=== PATIENT | female | born 1965 | race Caucasian/White ===

== ENCOUNTER 2019-05-28 23:55 | Observation (INO) | payer SELFPAY ==
--- NOTE | 2019-05-29 00:52 | EDM.PDOC ---
ED HPI GENERAL MEDICAL PROBLEM - General Time Seen by Provider: 05/29/19 00:15 Source of Information: Reports: Patient, EMS, Police History Limitations: Reports: Intoxication - History of Present Illness INITIAL COMMENTS - FREE TEXT/NARRATIVE: Pt. presents to ER with complaints of depression and anxiety. Pt. has been under increased stress recently. Her has liver failure and the patient has been the sore breadwinner. Pt. states that tongarry, instead of going to a family [employer] event, decided to drink tonight. She made mention to her son that she did not want to live anymore. EMS was summoned. Pt. denies any suicidal ideation to EMS or law enforcement, and she does not have a plan to harm herself. Pt. has a history of depression and PTSD. She is under the care of Dr. Lopez at [facility]. She is prescribed zanax and citalopram. She has a history of binge drinking but is not an alcoholic. 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 Pt. denies any history of suicidal or homicidal ideation ever in the past. Pt. states that she has also been experiencing cough and chest congestion for over a week as well. She is a smoker. She states that the cough is productive. She has not been experiencing any fever or chills. No significant shortness of breath. Onset: Today Onset Date: 05/29/19 Location: Reports: Chest, Generalized Severity: Moderate Worsens with: Reports: Breathing Associated Symptoms: Reports: Cough, cough w sputum. Denies: Diaphoresis, Fever /Chills, Nausea/Vomiting, Shortness of Breath - Related Data Allergies Allergy/AdvReac Type Severity Reaction Status Date / Time guaifenesin [From Mucinex] Allergy Intermediate Swollen Verified 05/29/19 01:45 Eyes Home Meds: Home Meds traMADol HCl [Tramadol HCl] 50 mg PO Q6H PRN #10 tablet 04/06/17 [Rx] Past Medical History - Past Health History Medical/Surgical History: Denies Medical/Surgical History Psychiatric History: Reports: Anxiety, Depression Other Psychiatric History: History of anxiety. - Past Surgical History GI Surgical History: Reports: Appendectomy Social & Family History - Caffeine Use Caffeine Use: Reports: Coffee ED ROS GENERAL - Review of Systems Review Of Systems: See Below Constitutional: Reports: No Symptoms HEENT: Reports: No Symptoms Respiratory: Reports: Pleuritic Chest Pain, Cough Cardiovascular: Reports: No Symptoms Endocrine: Reports: No Symptoms GI/Abdominal: Reports: No Symptoms : Reports: No Symptoms Musculoskeletal: Reports: No Symptoms Skin: Reports: No Symptoms Neurological: Reports: No Symptoms. Denies: Confusion, Dizziness, Headache, Numbness, Pre-Existing Deficit, Seizure, Syncope, Tingling, Tremors, Trouble Speaking, Weakness Psychiatric: Reports: Depression, Mood Lability. Denies: Homicidal Ideation, Suicidal Ideation Hematologic/Lymphatic: Reports: No Symptoms Immunologic: Reports: No Symptoms ED EXAM, GENERAL - Physical Exam Exam: See Below Exam Limited By: Intoxication General Appearance: Alert, WD/WN, No Apparent Distress Eye Exam: Bilateral Eye: EOMI, Normal Fundi, Normal Inspection, PERRL Ears: Normal External Exam, Normal Canal, Hearing Grossly Normal, Normal TMs Nose: Normal Inspection, No Blood Throat/Mouth: Normal Inspection, Normal Lips, Normal Teeth, Normal Gums, Normal Oropharynx, Normal Voice, No Airway Compromise Head: Atraumatic, Normocephalic Neck: Normal Inspection, Supple, Non-Tender, Full Range of Motion Respiratory/Chest: No Respiratory Distress, Decreased Breath Sounds, Rhonchi Cardiovascular: Normal Peripheral Pulses, Regular Rate, Rhythm, No Edema, No JVD Peripheral Pulses: 4+: Radial (R) GI/Abdominal: Normal Bowel Sounds, Soft, Non-Tender, No Organomegaly, No Distention, No Mass (Female) Exam: Deferred Rectal (Female) Exam: Deferred Back Exam: Normal Inspection, Full Range of Motion Extremities: Normal Inspection, Normal Range of Motion, Non-Tender, No Pedal Edema, Normal Capillary Refill Neurological: Alert, Oriented, CN II-XII Intact, Normal Cognition, Normal Gait, Normal Reflexes, No Motor/Sensory Deficits Psychiatric: Anxious, Depressed Mood, Tearful Skin Exam: Warm, Dry, Intact, Normal Color, No Rash Course - Vital Signs Last Recorded V/S: Last Vital Signs Temp 36.0 C 05/28/19 23:55 Pulse 76 05/28/19 23:55 Resp 16 05/28/19 23:55 BP 121/78 05/28/19 23:55 Pulse Ox 94 L 05/28/19 23:55 - Orders/Labs/Meds Orders: Active Orders 24 hr Category Date Time Status Patient Status [ADT] Routine ADT 05/29/19 01:51 Active Chest 1V Frontal [CR] Stat Exams 05/29/19 00:32 Taken Labs: Laboratory Tests 05/29/19 05/29/19 05/29/19 Range/Units 00:54 00:54 00:54 WBC 5.4 (4.0-10.0) x10^3/uL RBC 4.17 (4.00-5.50) x10^6/uL Hgb 11.0 L (12.0-16.0) g/dL Hct 34.5 (33.0-47.0) % MCV 82.7 (78.0-93.0) fL MCH 26.4 (26.0-32.0) pg MCHC 31.9 L (32.0-36.0) g/dL RDW Coeff of Grace 19.8 H (10.0-15.0) % Plt Count 183 (130-400) x10^3/uL Neut % (Auto) 52.8 (50.0-80.0) % Lymph % (Auto) 35.9 (25.0-50.0) % [place] % (Auto) 8.5 (2.0-11.0) % Eos % (Auto) 2.4 (0.0-4.0) % Baso % (Auto) 0.4 (0.2-1.2) % PT 10.3 (10.0-12.8) SEC INR 0.9 L (2.0-3.5) Sodium 148 H (136-145) mmol/L Potassium 3.0 L (3.5-5.1) mmol/L Chloride 109 H (98-107) mmol/L Carbon Dioxide 28 (21-32) mmol/L Anion Gap 14.0 (10-20) mmol/L BUN 4 L (7-18) mg/dL Creatinine 0.6 (0.55-1.02) mg/dL Est Cr Clr Drug Dosing TNP Estimated GFR (MDRD) > 60 Glucose 102 (74-106) mg/dL Calcium 7.9 L (8.5-10.1) mg/dL Corrected Calcium 9.34 (8.5-10.1) mg/dL Magnesium 2.0 (1.8-2.4) mg/dL Total Bilirubin 0.2 (0.2-1.0) mg/dL AST 166 H (15-37) U/L ALT 83 H (14-59) U/L Alkaline Phosphatase 141 H (46-116) U/L C-Reactive Protein < 0.2 (<=0.9) mg/dL Total Protein 5.5 L (6.4-8.2) g/dL Albumin 2.2 L (3.4-5.0) g/dL Globulin 3.3 Albumin/Globulin Ratio 0.67 Urine Color (YELLOW) Urine Appearance (CLEAR) Urine pH (5.0-8.0) Ur Specific [place] Urine Protein (NEGATIVE) mg/dL Urine Glucose (UA) (NEGATIVE) mg/dL Urine Ketones (NEGATIVE) mg/dL Urine Occult Blood (NEGATIVE) Urine Nitrite (NEGATIVE) Urine Bilirubin (NEGATIVE) Urine Urobilinogen (0.2) EU/dL Ur Leukocyte Esterase (NEGATIVE) Urine RBC (NOT SEEN) /HPF Urine WBC (NOT SEEN) /HPF Ur Squamous Epith Cells (NEGATIVE) /HPF Urine Bacteria (NEGATIVE) /HPF Urine Mucus (NEGATIVE) /LPF Urine Opiates Screen (NEGATIVE) Ur Buprenorphine Scrn (NEGATIVE) Ur Oxycodone Screen (NEGATIVE) Ur EDDP (Meth Metab) (NEGATIVE) Urine Methadone Screen (NEGATIVE) Ur Barbiturates Screen (NEGATIVE) Ur Tricyclics Screen (NEGATIVE) Ur Phencyclidine Scrn (NEGATIVE) Ur Amphetamine Screen (NEGATIVE) U Methamphetamines Scrn (NEGATIVE) Urine MDMA Screen (NEGATIVE) U Benzodiazepines Scrn (NEGATIVE) U Cocaine Metab Screen (NEGATIVE) U Marijuana (THC) Screen (NEGATIVE) Ethyl Alcohol 214 H (0-3) mg/dL 05/29/19 05/29/19 Range/Units 01:29 01:29 WBC (4.0-10.0) x10^3/uL RBC (4.00-5.50) x10^6/uL Hgb (12.0-16.0) g/dL Hct (33.0-47.0) % MCV (78.0-93.0) fL MCH (26.0-32.0) pg MCHC (32.0-36.0) g/dL RDW Coeff of Grace (10.0-15.0) % Plt Count (130-400) x10^3/uL Neut % (Auto) (50.0-80.0) % Lymph % (Auto) (25.0-50.0) % [place] % (Auto) (2.0-11.0) % Eos % (Auto) (0.0-4.0) % Baso % (Auto) (0.2-1.2) % PT (10.0-12.8) SEC INR (2.0-3.5) Sodium (136-145) mmol/L Potassium (3.5-5.1) mmol/L Chloride (98-107) mmol/L Carbon Dioxide (21-32) mmol/L Anion Gap (10-20) mmol/L BUN (7-18) mg/dL Creatinine (0.55-1.02) mg/dL Est Cr Clr Drug Dosing Estimated GFR (MDRD) Glucose (74-106) mg/dL Calcium (8.5-10.1) mg/dL Corrected Calcium (8.5-10.1) mg/dL Magnesium (1.8-2.4) mg/dL Total Bilirubin (0.2-1.0) mg/dL AST (15-37) U/L ALT (14-59) U/L Alkaline Phosphatase (46-116) U/L C-Reactive Protein (<=0.9) mg/dL Total Protein (6.4-8.2) g/dL Albumin (3.4-5.0) g/dL Globulin Albumin/Globulin Ratio Urine Color Yellow (YELLOW) Urine Appearance Clear (CLEAR) Urine pH 7.0 (5.0-8.0) Ur Specific [place] 1.010 Urine Protein Negative (NEGATIVE) mg/dL Urine Glucose (UA) Negative (NEGATIVE) mg/dL Urine Ketones Negative (NEGATIVE) mg/dL Urine Occult Blood Negative (NEGATIVE) Urine Nitrite Negative (NEGATIVE) Urine Bilirubin Negative (NEGATIVE) Urine Urobilinogen 0.2 (0.2) EU/dL Ur Leukocyte Esterase Negative (NEGATIVE) Urine RBC 0-5 (NOT SEEN) /HPF Urine WBC 0-5 (NOT SEEN) /HPF Ur Squamous Epith Cells Few H (NEGATIVE) /HPF Urine Bacteria Rare (NEGATIVE) /HPF Urine Mucus Rare H (NEGATIVE) /LPF Urine Opiates Screen Negative (NEGATIVE) Ur Buprenorphine Scrn Negative (NEGATIVE) Ur Oxycodone Screen Negative (NEGATIVE) Ur EDDP (Meth Metab) Negative (NEGATIVE) Urine Methadone Screen Negative (NEGATIVE) Ur Barbiturates Screen Negative (NEGATIVE) Ur Tricyclics Screen Negative (NEGATIVE) Ur Phencyclidine Scrn Negative (NEGATIVE) Ur Amphetamine Screen Negative (NEGATIVE) U Methamphetamines Scrn Negative (NEGATIVE) Urine MDMA Screen Negative (NEGATIVE) U Benzodiazepines Scrn Positive H (NEGATIVE) U Cocaine Metab Screen Negative (NEGATIVE) U Marijuana (THC) Screen Negative (NEGATIVE) Ethyl Alcohol (0-3) mg/dL Meds: Medications Discontinued Medications Generic Name Dose Route Start Last Admin Trade Name Freq PRN Reason Stop Dose Admin Doxycycline Monohydrate 2 packet 05/29/19 01:30 Take Home: Doxycycline 100 Mg, 4 Tab Pack PO 05/29/19 01:31 ONETIME ONE Ketorolac Tromethamine 30 mg 05/29/19 01:30 Toradol IM 05/29/19 01:31 ONETIME ONE - Radiology Interpretation Free Text/Narrative:: chest x-ray obtained and was negative for acute pathology Departure - Departure Time of Disposition: 01:56 Disposition: Refer to Observation Clinical Impression: Alcohol abuse, Anxiety, COPD exacerbation - Discharge Information Instructions: Chronic Obstructive Pulmonary Disease Exacerbation, Major Depressive Disorder, Adult, [id number], Alcohol Intoxication, [id number] Forms: ED Department Discharge Additional Instructions: Home to rest. Continue with your current medications. Doxycycline 100mg twice daily for 10 days Prednisone 20mg 2 tabs every day for 7 days Return to ER if you develop suicidal thoughts or plans. Sepsis Event Note - Focused Exam Vital Signs: Vital Signs Temp Pulse Resp BP Pulse Ox 05/28/19 23:55 36.0 C 76 16 121/78 94 L Date Exam was Performed: 05/29/19 Time Exam was Performed: 01:54 - Problem List Review Problem List Initiated/Reviewed/Updated: Yes - My Orders Last 24 Hours: My Active Orders 05/29/19 00:32 Chest 1V Frontal [CR] Stat 05/29/19 01:51 Patient Status [ADT] Routine - Assessment/Plan Admission H&P: Please use this note as an admission H&P Last 24 Hours: My Active Orders 05/29/19 00:32 Chest 1V Frontal [CR] Stat 05/29/19 01:51 Patient Status [ADT] Routine Plan: Initially planned to discharge the patient, but patient later developed increased discomfort in her R lateral chest. Chest x-ray is negative, but her lung sounds are diminished. Likely cause of the chest discomfort is pleurisy. She is intoxicated, and she doesn't have anyone sober to pick her up. Will start NS at 125ml/hr. Solu Medrol 125mg IV. Will add d dimer in the AM, pt. has had a significant increase in discomfort since she initially presented to ER. She is a code 1.
[2019-05-29 01:19] LABS: CHLORIDE,CL 109 mmol/L (98-107); SODIUM,NA 148 mmol/L (136-145)
[2019-05-29] MEDS ORDERED: Take Home: Doxycycline 100 MG Tab, 4 Tab Pack PO ONE (01:30)
[2019-05-29] MEDS ORDERED: Ketorolac 30 MG/ML SDV IM ONE (01:30)
[2019-05-29 01:42] LABS: BARBITURATE SCREEN,URINE NEGATIVE (NEGATIVE); EDDP,URINE SCREEN NEGATIVE (NEGATIVE)
[2019-05-29 01:43] LABS: BENZODIAZEPINES SCREEN,URINE POSITIVE (NEGATIVE); METHAMPHETAMINE SCREEN, URINE NEGATIVE (NEGATIVE); TCA SCREEN,URINE NEGATIVE (NEGATIVE); THC SCREEN,URINE 50 NG/ML NEGATIVE (NEGATIVE)
[2019-05-29] MEDS ORDERED: Sodium Chloride 0.9% 1,000 ML IV ONE (02:23)
[2019-05-29] MEDS ORDERED: methylPREDNISolone Sodium Succinate 125 MG/2 ML SDV IVPUSH ONE (02:24)
[2019-05-29] MEDS ORDERED: Acetaminophen/HYDROcodone 325-5 MG Tab PO PRN (02:26)
[2019-05-29] MEDS: Doxycycline 100 MG Cap PO SCH ×2 (02:59→08:32)
[2019-05-29] MEDS ORDERED: Citalopram 20 MG Tab PO SCH (08:00)
--- NOTE | 2019-05-29 08:33 | CR ---
[id number] RAD/RAD Chest PA or AP 1V EXAM: RAD Chest PA or AP 1V INDICATION: COUGH,CHEST CONGESTION. COMPARISON: None. DISCUSSION: Cardiomediastinal silhouette is normal in size and contour, given portable technique of the examination. Pulmonary vascularity is also normal in caliber. No infiltrate, effusion, pneumothorax, or edema. IMPRESSION: Negative examination of the chest. Jose Dill MD 05/29/19 0832 Thank you for allowing us to participate in the care of your patient.
[2019-05-29] MEDS: ALPRAZolam 0.5 MG Tab PO PRN ×2 (08:35→12:47)
[2019-05-29] MEDS ORDERED: Iopamidol 612 MG/ML 100 ML Bottle IVPUSH ONE (10:35)
--- NOTE | 2019-05-29 14:15 | CT ---
[id number] CT/CTA Chest EXAM: CTA Chest CLINICAL DATA: CHEST Pain, positive D DIMER. COMPARISON: May 29, 2019. FINDINGS: LUNGS: Mild granulomatous change in the lungs. Mild bibasal scarring or atelectasis. Negative for pneumonia. No effusion or pneumothorax. HEART AND GREAT VESSELS: Heart is normal in size. Coronary artery atherosclerosis. Negative for pulmonary embolus. Thoracic aorta is normal in caliber. No dissection. MEDIASTINUM AND LYMPHATICS: Calcified subcarinal lymph node. UPPER ABDOMINAL ORGANS: Small sliding-type hiatus hernia. Diffuse hepatic steatosis. Liver contour is slightly nodular in appearance. Correlate with LFTs for signs of cirrhosis. Otherwise unremarkable. BONES: No radiographically evident rib fracture. Mild thoracic spondylosis. IMPRESSION: Negative for pulmonary embolus other acute findings in the chest. Multiple chronic findings in the chest and upper abdomen are described above. Jose Dill MD 05/29/19 [id number] Thank you for allowing us to participate in the care of your patient.
[2019-05-29 14:26] VITALS: BP 155/88; PULSE 92
[2019-05-29] MEDS ORDERED: Doxycycline 100 MG Cap PO ONE (15:16)
[2019-05-29] MEDS ORDERED: Take Home: predniSONE 20 MG, 2 Tab Pack PO ONE (15:19)
--- NOTE | 2019-06-01 04:19 | PCM.DCSUM1 ---
Discharge Summary - Hospital Course Free Text/Narrative:: Pt. did well overnight. Pt. did have a positive d dimer and CT angiogram was performed which was negative for PE. She has been eating and drinking adequately. Pt. denies any suicidal or homicidal ideation. She states that she is going to follow-up with her psychiatrist. She does not have a plan to harm herself at this time. Pt. will be started on doxycycline as she has been experiencing cough and chest congestion for approx. 1 week. - Discharge Data Discharge Date: 05/29/19 Discharge Disposition: Home, Self-Care 01 Condition: Stable - Referral to Home Health Primary Care Physician: PCP Unobtainable - Discharge Diagnosis/Problem(s) (1) Alcohol abuse SNOMED Code(s): 12554141 ICD Code: F10.10 - ALCOHOL ABUSE, UNCOMPLICATED Status: Acute (2) Anxiety SNOMED Code(s): 38729036 ICD Code: F41.9 - ANXIETY DISORDER, UNSPECIFIED Status: Acute (3) COPD exacerbation SNOMED Code(s): 137151414 ICD Code: J44.1 - CHRONIC OBSTRUCTIVE PULMONARY DISEASE W (ACUTE) EXACERBATION Status: Acute - Patient Instructions Diet: Usual Diet as Tolerated Activity: As Tolerated Driving: May Drive Today Showering/Bathing: May Shower Notify Provider of: Fever, Increased Pain, Swelling and Redness, Nausea and/or Vomiting - Discharge Plan Home Medications: Home Meds ALPRAZolam [Xanax] 0.5 mg TID PRN 05/29/19 [History] Citalopram [Citalopram HBr] 20 mg PO DAILY 05/29/19 [History] Doxycycline [Vibramycin] 100 mg PO BID cap 05/29/19 [Rx] Patient Handouts: Chronic Obstructive Pulmonary Disease Exacerbation, Major Depressive Disorder, Adult, [id number], Alcohol Intoxication, [id number] Forms: ED Department Discharge Referrals: PCP,Unobtain [Primary Care Provider] - - Discharge Summary/Plan Comment DC Time >30 min.: Yes - General Info Date of Service: 05/29/19 Functional Status: Reports: Pain Controlled - Review of Systems General: Reports: No Symptoms HEENT: Reports: No Symptoms Pulmonary: Reports: Pleuritic Chest Pain, Cough Cardiovascular: Reports: No Symptoms Gastrointestinal: Reports: No Symptoms Genitourinary: Reports: No Symptoms Musculoskeletal: Reports: No Symptoms Skin: Reports: No Symptoms Neurological: Reports: No Symptoms Psychiatric: Reports: Depression - Patient Data Vitals - Most Recent: Last Vital Signs Temp 36.9 C 05/29/19 14:00 Pulse 92 05/29/19 14:00 Resp 14 05/29/19 09:47 BP 155/88 H 05/29/19 14:00 Pulse Ox 92 L 05/29/19 14:00 Weight - Most Recent: 80.286 kg Med Orders - Current: Current Medications Discontinued Medications Hydrocodone Bitart/Acetaminophen (Davis 325-5 Mg) 1 tab PO Q4H PRN PRN Reason: Pain Alprazolam (Xanax) 0.5 mg PO TID PRN PRN Reason: Anxiety Last Admin: 05/29/19 12:47 Dose: 0.5 mg Citalopram Hydrobromide (Celexa) 20 mg PO DAILY [facility] Last Admin: 05/29/19 08:32 Dose: 20 mg Doxycycline Hyclate (Vibramycin) 100 mg PO BID [facility] Last Admin: 05/29/19 08:32 Dose: 100 mg Doxycycline Hyclate (Vibramycin) 100 mg PO ONETIME ONE Stop: 05/29/19 15:17 Last Admin: 05/29/19 15:34 Dose: 100 mg Doxycycline Monohydrate (Take Home: Doxycycline 100 Mg, 4 Tab Pack) 2 packet PO ONETIME ONE Stop: 05/29/19 01:31 Last Admin: 05/29/19 02:41 Dose: Not Given Sodium Chloride (Normal Saline) 1,000 mls @ 150 mls/hr IV .BOLUS ONE Stop: 05/29/19 09:02 Last Admin: 05/29/19 02:59 Dose: 150 mls/hr Iopamidol (Isovue-300 (61%)) 100 ml IVPUSH ONETIME ONE Stop: 05/29/19 10:36 Last Admin: 05/29/19 13:26 Dose: 100 ml Ketorolac Tromethamine (Toradol) 30 mg IM ONETIME ONE Stop: 05/29/19 01:31 Last Admin: 05/29/19 01:55 Dose: 30 mg Methylprednisolone Sodium Succinate (Solu-Medrol) 125 mg IVPUSH ONETIME ONE Stop: 05/29/19 02:25 Last Admin: 05/29/19 02:59 Dose: 125 mg Prednisone (Take Home: Prednisone 20 Mg, 2 Tab Pack) 1 packet PO ONETIME ONE Stop: 05/29/19 15:20 Last Admin: 05/29/19 15:34 Dose: 1 packet - Exam General: Reports: Alert, Oriented HEENT: Reports: Pupils Equal, Pupils Reactive, EOMI, Mucous Membr. Moist/[place] Neck: Reports: Supple Lungs: Reports: Clear to Auscultation, Normal Respiratory Effort Cardiovascular: Reports: Regular Rate, Regular Rhythm GI/Abdominal Exam: Normal Bowel Sounds, Soft, Non-Tender, No Organomegaly, No Distention, No Abnormal Bruit, No Mass, Pelvis Stable (Female) Exam: Deferred Rectal (Female) Exam: Deferred Back Exam: Reports: Normal Inspection, Full Range of Motion Extremities: Normal Inspection, Normal Range of Motion, Non-Tender, No Pedal Edema, Normal Capillary Refill Skin: Reports: Warm, Dry, Intact Wound/Incisions: Reports: Healing Well Neurological: Reports: No New Focal Deficit Psy/Mental Status: Reports: Alert, Normal Affect, Normal Mood
== END 2019-05-29 15:30 | disposition home or self-care (01) ==
LOC: VM.ED 23:55 → VM.MS 05-29 02:00
PROVIDERS: ADMIT Physician Assistant; ATTEND Physician Assistant
DX: F10.10 Alcohol abuse, uncomplicated (principal); J44.1 Chronic obstructive pulmonary disease with (acute) exacerbation; F41.9 Anxiety disorder, unspecified; F32.9 Major depressive disorder, single episode, unspecified; F17.210 Nicotine dependence, cigarettes, uncomplicated; Z88.8 Allergy status to other drugs, medicaments and biological substances
CPT/HCPCS: 36415; 71045; 71275; 80053; 80305-QW; 81001; 83735; 85025; 85379; 85610; 86140; A9270-GY; G0480; J1885; J2930; J7030; Q9967

== ENCOUNTER 2019-08-13 10:06 | Emergency (ER) | payer OTHER, MEDICAID ==
--- NOTE | 2019-08-13 10:55 | EDM.PDOC ---
ED HPI GENERAL MEDICAL PROBLEM - General Chief Complaint: Upper Extremity Injury/Pain Stated Complaint: FELL ON ICE, HURT LEFT WRIST Time Seen by Provider: 08/13/19 10:35 Source of Information: Reports: Patient History Limitations: Reports: No Limitations - History of Present Illness INITIAL COMMENTS - FREE TEXT/NARRATIVE: Patient presents to ER with complaints of left hand pain. Admits that she fell on the ice yesterday, landed on her left side. Feels like she used her hand to brace her fall. Has abrasions on her left side and in the left axilla but those are just sore today. Did not hit her head. No loss of consciousness. Has pain and bruising to left hand and mild swelling. Can move her wrist but with discomfort. Unable to "make a fist". Did ice at home yesterday but continues to have pain today. 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 - Past Surgical History HEENT Surgical History: Reports: Other (See Below) GI Surgical History: Reports: Appendectomy Social & Family History - Family History Family Medical History: Noncontributory - Caffeine Use Caffeine Use: Reports: Soda Review of Systems - Review of Systems Review Of Systems: See Below Constitutional: Reports: No Symptoms Eyes: Reports: No Symptoms Ears: Reports: No Symptoms Nose: Reports: No Symptoms Mouth/Throat: Reports: No Symptoms Respiratory: Reports: No Symptoms Cardiovascular: Reports: No Symptoms Musculoskeletal: Reports: Hand Pain Skin: Reports: Bruising, Other (abrasions) Neurological: Reports: No Symptoms ED EXAM, GENERAL - Physical Exam Exam: See Below Exam Limited By: No Limitations General Appearance: Alert, WD/WN, No Apparent Distress, Other (patient appears somewhat sedated, has been taking xanax 4 times per day. ) Ears: Normal External Exam, Normal TMs Nose: Normal Inspection, Normal Mucosa, No Blood Throat/Mouth: Normal Inspection, Normal Oropharynx Head: Normocephalic Neck: Normal Inspection, Supple, Non-Tender Respiratory/Chest: No Respiratory Distress, Lungs Clear, Normal Breath Sounds Cardiovascular: Regular Rate, Rhythm GI/Abdominal: Soft Extremities: Other (has tenderness to left hand. Able to flex and extend her wrist. Unablel to make full fist. Has bruising and swelling to the mid lateral left hand.) Skin Exam: Wound/Incision (abrasions to left flank and left outer breast region. ) Course - Orders/Labs/Meds Orders: Active Orders 24 hr Category Date Time Status Hand Comp Min 3V Lt [CR] Stat Exams 08/13/19 10:38 Ordered Wrist Comp Min 3V Lt [CR] Stat Exams 08/13/19 10:38 Ordered - Re-Assessments/Exams Free Text/Narrative Re-Assessment/Exam: 08/13/19 11:18 Patient noted to have 5th metacarpal fracture. Is in good alignment at this point. One step placed with mild flexion of 4th and 5th digit. Patient tolerated well. Advised her she will need follow up with her primary doctor this coming week for recheck xray and either cast or referral to orthopedics. Patient requesting pain meds. Advised that pain will be improved with splint placement. Alternate tylenol with ibuprofen for discomfort. Departure - Departure Time of Disposition: 11:22 Disposition: Home, Self-Care 01 Condition: Good Clinical Impression: Fracture of metacarpal bone Qualifiers: Encounter type: initial encounter Metacarpal bone: fifth Fracture type: closed Metacarpal location: shaft Fracture alignment: nondisplaced Laterality: left Qualified Code(s): S62.357A - Nondisplaced fracture of shaft of fifth metacarpal bone, left hand, initial encounter for closed fracture - Discharge Information *PRESCRIPTION DRUG MONITORING PROGRAM REVIEWED*: No *COPY OF PRESCRIPTION DRUG MONITORING REPORT IN PATIENT ADAM: No Instructions: Clavicle Fracture, [id number] Referrals: Ahmet Kemp MD [Primary Care Provider] - Forms: ED Department Discharge Additional Instructions: 1. Rest arm 2. Elevate arm to prevent further swelling 3. Ice as needed 4. Keep splint on until see primary doctor 5. Alternate 2 tylenol with 3 ibuprofen every 3 hours for pain 6. Call Dr. Kemp's office on Thursday to arrange follow up appointment for 5th metacarpal fracture Sepsis Event Note - Focused Exam Date Exam was Performed: 08/13/19 Time Exam was Performed: 11:18 - My Orders Last 24 Hours: My Active Orders 08/13/19 10:38 Hand Comp Min 3V Lt [CR] Stat Wrist Comp Min 3V Lt [CR] Stat - Assessment/Plan Last 24 Hours: My Active Orders 08/13/19 10:38 Hand Comp Min 3V Lt [CR] Stat Wrist Comp Min 3V Lt [CR] Stat
[2019-08-13 11:22] VITALS: BP 130/89; PULSE 95
--- NOTE | 2019-08-13 11:33 | CR ---
[id number] RAD/RAD Hand Left 3V; [id number] RAD/RAD Wrist Left 3V Min EXAM: RAD Wrist Left 3V Min, RAD Hand Left 3V INDICATION: FALL WITH TRAUMA. COMPARISON: None. DISCUSSION: Acute mildly displaced and angulated fifth metacarpal shaft fracture. A small avulsion fracture suggested off of the dorsal triquetrum. No dislocation or other osseous abnormality is identified. IMPRESSION: 1. Acute mildly displaced and angulated fifth metacarpal shaft fracture. 2. Probable small dorsal triquetral avulsion fracture. Dread Ballard MD 08/13/19 1132 Thank you for allowing us to participate in the care of your patient.
== END 2019-08-13 11:30 | disposition home or self-care (01) ==
LOC: VM.ED 10:06
DX: S62.357A Nondisplaced fracture of shaft of fifth metacarpal bone, left hand, initial encounter for closed fracture (principal); S30.811A Abrasion of abdominal wall, initial encounter; S20.112A Abrasion of breast, left breast, initial encounter; F41.9 Anxiety disorder, unspecified; F32.9 Major depressive disorder, single episode, unspecified; Z88.8 Allergy status to other drugs, medicaments and biological substances; Z79.899 Other long term (current) drug therapy; W00.0XXA Fall on same level due to ice and snow, initial encounter
CPT/HCPCS: 29125; 73110-LT; 73130-LT; 99283-25

== ENCOUNTER 2020-07-11 07:47 | Emergency (ER) | payer MEDICAID ==
[2020-07-11] MEDS ORDERED: Orphenadrine 60 MG/2 ML Inj IM STA (08:14)
[2020-07-11] MEDS ORDERED: Ketorolac 30 MG/ML SDV IM ONE (08:14)
--- NOTE | 2020-07-11 08:28 | EDM.PDOC ---
ED HPI GENERAL MEDICAL PROBLEM - General Stated Complaint: FELL DOWN THE STAIRS Time Seen by Provider: 07/11/20 08:05 Source of Information: Reports: Patient History Limitations: Reports: No Limitations - History of Present Illness INITIAL COMMENTS - FREE TEXT/NARRATIVE: Patient comes emergency department today from home with concerns of a fall down the steps. Last night the patient was at the top of the steps when she tripped on her cat fell backwards landing on her back on the steps and she went down about ten steps. She did not hit her head. She has no head neck pain. There was no loss of consciousness. She complains only of intermittent severe shooting type pain in the lower lumbar region of her back. No pain in the upper back. She is quite a bit worse this morning than when she was last night. She has no headache visual acuity changes. No paresthesias of the upper or lower extremities. No change in the functionality of her upper or lower extremities. She has had no hematuria dysuria or urinary frequency. No chest pain no shortness of breath or difficulty breathing. No cough or congestion. No abdominal pain. She is able to ambulate but she is quite uncomfortable with shooting pain in her lower lumbar region. She did take some ibuprofen last night she has not taken anything this morning. She has had no loss of bowel or bladder. Lower Back Pain Score (Numeric/FACES): 10 - Related Data Allergies Allergy/AdvReac Type Severity Reaction Status Date / Time guaifenesin [From Mucinex] Allergy Intermediate Swollen Verified 08/13/19 10:53 Eyes Home Meds: Home Meds ALPRAZolam [Xanax] 1 mg QID PRN 05/29/19 [History] Citalopram [Citalopram HBr] 30 mg PO DAILY 05/29/19 [History] Acetaminophen/HYDROcodone [[place] Pk 325-5 MG] 1 tab PO Q6H PRN #12 tablet 07/11/20 [Rx] Cyclobenzaprine [Flexeril] 10 mg PO TID PRN #12 tab 07/11/20 [Rx] Past Medical History - Past Health History Medical/Surgical History: Denies Medical/Surgical History [employer]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 - Past Surgical History HEENT Surgical History: Reports: Other (See Below) GI Surgical History: Reports: Appendectomy Social & Family History - Family History Family Medical History: No Pertinent Family History - Caffeine Use Caffeine Use: Reports: Soda ED ROS GENERAL - Review of Systems Review Of Systems: Comprehensive ROS is negative, except as noted in HPI. ED EXAM,LOWER BACK PAIN/INJURY - Physical Exam Exam: See Below Text/Narrative:: Patient is able to get in a position of comfort she does not appear uncomfortable or in any distress although when she moves just right she has some very jumping startled type movements and grabs her lower back. Exam Limited By: No Limitations General Appearance: Alert, WD/WN Eye Exam: Bilateral Eye: EOMI, PERRL Ears: Normal External Exam, Normal Canal, Hearing Grossly Normal, Normal TMs Nose: Normal Inspection, Normal Mucosa, No Blood Throat/Mouth: Normal Inspection, Normal Lips, Normal Teeth, Normal Gums, Normal Oropharynx, Normal Voice, No Airway Compromise Head: Atraumatic, Normocephalic Neck: Normal Inspection, Supple, Non-Tender, Full Range of Motion. No: Tender Lateral, Tender Midline Respiratory/Chest: No Respiratory Distress, Lungs Clear, Normal Breath Sounds, No Accessory Muscle Use, Chest Non-Tender Cardiovascular: Normal Peripheral Pulses, Regular Rate, Rhythm, No JVD, No Murmur GI/Abdominal: Normal Bowel Sounds, Soft, Non-Tender, Pelvis Stable (Female) Exam: Deferred Rectal (Female) Exam: Deferred Back Exam: Muscle Spasm (In the very lower back.), Paraspinal Tenderness (There is some paraspinal tenderness in the very low lumbar region as well as vertebral tenderness in the low lumbar region. Although there is no bony deformity step-offs. There is no bruising swelling ecchymosis or other signs of trauma to the posterior.), Vertebral Tenderness. No: CVA Tenderness (L), CVA Tenderness (R) Extremities: Normal Inspection, Non-Tender, No Pedal Edema, Normal Capillary Refill Neurological: Alert, Normal Mood/Affect, Normal Dorsiflexion, CN II-XII Intact, Normal Plantar Flexion, Normal Reflexes, No Motor/Sensory Deficits, Oriented x 3, Difficulty Walking (She ambulates with slow but steady due to discomfort in her back most likely.) DTR - Lower Extremities: 2+: Knee (R), Knee (L), Ankle (R), Ankle (L) Psychiatric: Anxious Skin Exam: Warm, Dry, Intact, Normal Color, No Rash Lymphatic: No Adenopathy Course - Vital Signs Last Recorded V/S: Last Vital Signs Temp 97.2 F 07/11/20 07:55 Pulse 82 07/11/20 08:40 Resp 16 07/11/20 07:55 BP 148/77 H 07/11/20 08:40 Pulse Ox 96 07/11/20 07:55 - Orders/Labs/Meds Labs: Laboratory Tests 07/11/20 07/11/20 07/11/20 Range/Units 08:15 08:30 08:30 WBC 15.6 H (4.0-10.0) x10^3/uL RBC 4.70 (4.00-5.50) x10^6/uL Hgb 9.9 L (12.0-16.0) g/dL Hct 32.8 L (33.0-47.0) % MCV 69.8 L D (78.0-93.0) fL MCH 21.1 L (26.0-32.0) pg MCHC 30.2 L (32.0-36.0) g/dL RDW Coeff of Grace 19.0 H (10.0-15.0) % Plt Count 413 H D (130-400) x10^3/uL Add Manual Diff Yes Neutrophils % (Manual) 85 H (50-80) % Band Neutrophils % 1 (0-6) % Lymphocytes % (Manual) 9 L (25-50) % Monocytes % (Manual) 5 (2-11) % Platelet Estimate Adequate Hypochromasia 2+ moderate H Anisocytosis 2+ moderate H Microcytosis 2+ moderate H Sodium 136 (136-145) mmol/L Potassium 3.3 L (3.5-5.1) mmol/L Chloride 98 (98-107) mmol/L Carbon Dioxide 28 (21-32) mmol/L Anion Gap 13.3 (5-15) mmol/L BUN 7 (7-18) mg/dL Creatinine 0.9 (0.55-1.02) mg/dL Est Cr Clr Drug Dosing TNP Estimated GFR (MDRD) > 60 Glucose 122 H (74-106) mg/dL Calcium 8.5 (8.5-10.1) mg/dL Corrected Calcium 8.66 (8.5-10.1) mg/dL Total Bilirubin 0.7 (0.2-1.0) mg/dL AST 19 (15-37) U/L ALT 21 (14-59) U/L Alkaline Phosphatase 93 (46-116) U/L Total Protein 7.9 (6.4-8.2) g/dL Albumin 3.8 (3.4-5.0) g/dL Globulin 4.1 Albumin/Globulin Ratio 0.93 Urine Color Dark yellow H (YELLOW) Urine Appearance Slightly cloudy H (CLEAR) Urine pH 6.0 (5.0-8.0) Ur Specific [place] 1.025 Urine Protein 30 H (NEGATIVE) mg/dL Urine Glucose (UA) Negative (NEGATIVE) mg/dL Urine Ketones Negative (NEGATIVE) mg/dL Urine Occult Blood Negative (NEGATIVE) Urine Nitrite Negative (NEGATIVE) Urine Bilirubin Small H (NEGATIVE) Urine Urobilinogen 1.0 (0.2) EU/dL Ur Leukocyte Esterase Negative (NEGATIVE) Urine RBC 0-5 (NOT SEEN) /HPF Urine WBC 0-5 (NOT SEEN) /HPF Ur Squamous Epith Cells Few H (NEGATIVE) /HPF Urine Bacteria Rare (NEGATIVE) /HPF Urine Mucus Moderate H (NEGATIVE) /LPF Meds: Medications Discontinued Medications Generic Name Dose Route Start Last Admin Trade Name René PRN Reason Stop Dose Admin Hydromorphone HCl 1 mg 07/11/20 09:26 Dilaudid IM 07/11/20 09:27 ONETIME ONE Ketorolac Tromethamine 30 mg 07/11/20 08:14 07/11/20 08:30 Toradol IM 07/11/20 08:15 30 mg ONETIME ONE Administration Orphenadrine Citrate 60 mg 07/11/20 08:14 07/11/20 08:30 Norflex IM 07/11/20 08:15 60 mg NOW STA Administration Promethazine HCl 12.5 mg 07/11/20 09:26 Phenergan IM 07/11/20 09:27 ONETIME ONE Promethazine HCl Confirm 07/11/20 09:39 Phenergan Administered 07/11/20 09:40 Dose 25 mg .ROUTE .RUST-MED ONE - Radiology Interpretation Free Text/Narrative:: X-ray of the lumbar spine per radiology shows an age-indeterminate compression deformity of the L4 vertebral body with approximately 30% loss of body height. No significant retropulsion. - Re-Assessments/Exams Free Text/Narrative Re-Assessment/Exam: 07/11/20 09:41 Initially the patient was given 30 mg of Toradol IM and 60 mg of Norflex. X-ray of the lumbar spine was ordered. Laboratory evaluation shows some anemia with a hemoglobin of 9.9 with breakdown concerning for iron deficiency anemia. She also has some protein in her urine otherwise rest of her labs are rather unremarkable. X-ray of the lumbar spine per radiology shows an age-indeterminate compression deformity of the L4 vertebral body with approximate 30% loss of body height. No significant retropulsion. This is in the area of where her exam is concerning for pain. I reviewed her laboratory evaluation concerning for some chronic findings of anemia and proteinuria. Luckily she has an appoint with her primary care tomorrow for a yearly physical where she can follow-up with this in the primary care setting. I discussed the plan of care for a compression fracture. Chris sical therapy is going to be huge for this. They can also consider vertebroplasty and/or Forteo this can be completed in the primary care setting. We will send her home with some Flexeril as well as hydrocodone's. She is still quite uncomfortable in the emergency department she was given Dilaudid 1 mg IM as well as Phenergan 12.5mg im improvement of her pain. Repeat neurological exam shows no neurological deficits. Discharge instructions as below are explained to the patient she was comfortable with this plan and her questions were answered. Departure - Departure Time of Disposition: 09:18 Disposition: Home, Self-Care 01 Clinical Impression: Spasm of muscle of lower back Anemia Qualifiers: Anemia type: unspecified type Qualified Code(s): D64.9 - Anemia, unspecified Proteinuria Qualifiers: Proteinuria type: unspecified Qualified Code(s): R80.9 - Proteinuria, unspecified Lumbar compression fracture Qualifiers: Encounter type: initial encounter Lumbar vertebra fracture level: L4 Qualified Code(s): S32.040A - Wedge compression fracture of fourth lumbar vertebra, initial encounter for closed fracture - Discharge Information Prescriptions: Cyclobenzaprine [Flexeril] 10 mg PO TID PRN #12 tab PRN Reason: Pain Acetaminophen/HYDROcodone [[place] Pk 325-5 MG] 1 tab PO Q6H PRN #12 tablet PRN Reason: Pain Instructions: Muscle Cramps and Spasms, [id number], Proteinuria Referrals: Kesha Alfredo MD [Primary Care Provider] - Forms: ED Return to Work/School Form Additional Instructions: Heat or ice to the sore areas whichever works best for you. Tylenol and or Ibuprofen as needed for pain. Make sure that you keep mobile and loose so you don't get stiff. Consider physical therapy this week as well. Follow up with PCP tomorrow for recheck of hgb possibly iron deficiency anemia and also recheck urine for protein in your urine. As you had already scheduled this. If pain not controlled with above. Flexeril 1 tablet three times a day as needed for back spasms and pain. Caution sedation. RX sent to [facility] Also for pain. [place] Pk 1 tablet every 6 hrs with food as needed for pain. Caution sedation. Rx sent to [facility]. Return to the ED if new or worsening symptoms. Note for work for a week. Sepsis Event Note (ED) - Focused Exam Vital Signs: Vital Signs Temp Pulse Resp BP Pulse Ox 07/11/20 08:40 82 148/77 H 07/11/20 07:55 97.2 F 86 16 179/97 H 96
[2020-07-11 09:03] LABS: CHLORIDE,CL 98 mmol/L (98-107); SODIUM,NA 136 mmol/L (136-145)
[2020-07-11 09:04] LABS: ANION GAP 13.3 mmol/L (5-15)
[2020-07-11 09:10] VITALS: BP 148/77; PULSE 82
--- NOTE | 2020-07-11 09:17 | CR ---
[id number] RAD/RAD Lumbar Spine 2-3V EXAM: AP AND LATERAL LUMBAR SPINE. INDICATION: Fall downstairs. COMPARISON: No previous similar exam is available for comparison. FINDINGS: Age-indeterminate compression deformity of the L4 vertebral body with approximately 30% loss of body height. No significant retropulsion. No other compression deformities are identified. Multilevel degenerative changes of the lumbar spine including loss of disc space height, endplate osteophytosis and facet arthropathy. Findings are most pronounced at L5-S1. The pedicles are intact. Vascular calcifications. IMPRESSION: AGE-INDETERMINATE COMPRESSION DEFORMITY OF THE L4 VERTEBRAL BODY WITH APPROXIMATELY 30% LOSS OF BODY HEIGHT. NO SIGNIFICANT RETROPULSION. Rahul Campos DO 07/11/20 0915 Thank you for allowing us to participate in the care of your patient.
[2020-07-11] MEDS ORDERED: Promethazine 25 MG/ML SDV IM ONE (09:26)
[2020-07-11] MEDS ORDERED: HYDROmorphone 1 MG/ML Syringe IM ONE (09:26)
[2020-07-11] MEDS ORDERED: Promethazine 25 MG/ML SDV ONE (09:39)
== END 2020-07-11 09:45 | disposition home or self-care (01) ==
LOC: VM.ED 07:47
DX: S32.049A Unspecified fracture of fourth lumbar vertebra, initial encounter for closed fracture (principal); D64.9 Anemia, unspecified; R80.9 Proteinuria, unspecified; Z88.8 Allergy status to other drugs, medicaments and biological substances; W10.9XXA Fall (on) (from) unspecified stairs and steps, initial encounter
CPT/HCPCS: 36415; 72100; 80053; 81001; 85025; 96372; 99283-25; 99284; J1170; J1885; J2360; J2550

== ENCOUNTER 2020-07-20 09:41 | Inpatient (IN) | payer MEDICAID ==
[2020-07-20] MEDS ORDERED: Lactated Ringers 1,000 ML IV ONE (09:57)
[2020-07-20] MEDS ORDERED: cefTRIAXone 1 GM Vial IVPUSH ONE (09:57)
[2020-07-20] MEDS ORDERED: Albuterol/Ipratropium 3.0-0.5 MG/3 ML Neb Soln NEB ONE (10:01)
[2020-07-20] MEDS ORDERED: methylPREDNISolone Sodium Succinate 125 MG/2 ML SDV IVPUSH ONE ×2 (10:14→11:18)
[2020-07-20] MEDS ORDERED: Budesonide 0.5 MG/2 ML Neb Susp NEB ONE (10:15)
--- NOTE | 2020-07-20 10:28 | EDM.PDOC ---
ED HPI GENERAL MEDICAL PROBLEM - General Chief Complaint: Respiratory Problem Stated Complaint: SOB Time Seen by Provider: 07/20/20 09:45 Source of Information: Reports: Patient, Family History Limitations: Reports: Respiratory Distress (Dec LOC) - History of Present Illness INITIAL COMMENTS - FREE TEXT/NARRATIVE: Patient comes emergency department today from home with complaints of shortness of breath. This patient has been in the hospital quite a bit over the past couple of weeks following a incident where she fell ending up with a compression fracture in the thoracic vertebrae. She is currently wearing a TLSO brace under guidance of neurosurgery. She has had quite a bit of pain over the past couple of weeks and has been using her oxycodone pretty regularly. Over the past 2 days she has had increasing shortness of breath and difficulty breathing. She could barely sleep last night because she was so short of breath. She complains of audible wheezing tightness in her chest. No chest pain. She has a very congested cough that she is unable to produce any sputum with. She has had no syncope but she feels very weak. She has not been able to eat or drink. She has some nausea without vomiting. No hematuria dysuria or urinary frequency. No black or tarry stools. She has a half a pack a day smoker since she was in her teens. She does have a history of COPD but she does not take any medications or controller medications for her COPD. She has had Covid in the past does not have the vaccine. She has little to no energy and can barely stand without assistance due to generalized weakness. - Related Data Allergies Allergy/AdvReac Type Severity Reaction Status Date / Time guaifenesin [From Mucinex] Allergy Intermediate Swollen Verified 07/20/20 11:03 Eyes Home Meds: Home Meds ALPRAZolam [Xanax] 1 mg QID PRN 05/29/19 [History] Citalopram [Citalopram HBr] 30 mg PO DAILY 05/29/19 [History] Acetaminophen/HYDROcodone [Nisula 325-5 MG] 1 tab PO Q6H PRN #12 tablet 07/11/20 [Rx] Cyclobenzaprine [Flexeril] 10 mg PO TID PRN #12 tab 07/11/20 [Rx] Past Medical History - Past Health History Medical/Surgical History: Denies Medical/Surgical History UNPAID INTERN History: Reports: Other UNPAID INTERN History: 2 children Psychiatric History: Reports: Anxiety, Depression Other Psychiatric History: History of anxiety. - Past Surgical History HEENT Surgical History: Reports: Other (See Below) GI Surgical History: Reports: Appendectomy Social & Family History - Family History Family Medical History: No Pertinent Family History - Caffeine Use Caffeine Use: Reports: Soda ED ROS GENERAL - Review of Systems Review Of Systems: Comprehensive ROS is negative, except as noted in HPI. ED EXAM, GENERAL - Physical Exam Exam: See Below Free Text/Narrative:: I enter the room I can audibly hear wheezing quite predominantly coming from this patient. She has a prolonged expiratory pattern. She is sitting in the chair up with her eyes closed she is drowsy but she does alert to verbal. She is maintaining her airway. She speaks in 1-2 word sentences and then closes her eyes and rest. No drooling. Airway is patent Exam Limited By: Respiratory Distress General Appearance: Alert (Verbal) Eye Exam: Bilateral Eye: EOMI, Normal Inspection Ears: Normal External Exam, Normal TMs Nose: Normal Inspection Throat/Mouth: No: Normal Inspection (Oral mucosa is quite dry without any lesions in the oropharynx. Lips are dry and cracked.) Head: Atraumatic, Normocephalic Neck: Normal Inspection, Supple, Non-Tender, Full Range of Motion Respiratory/Chest: Respiratory Distress, Decreased Breath Sounds, Wheezing (Very loud wheezing throughout more on the left than the right. Minimal air movement. Auscultation is somewhat limited due to the presence of the TLSO br erasmo.), Prolonged Expiration. No: Stridor, Retractions Cardiovascular: Normal Peripheral Pulses, Regular Rate, Rhythm, Tachycardia Peripheral Pulses: 2+: Radial (L), Radial (R) GI/Abdominal: Normal Bowel Sounds, Soft, Non-Tender (Female) Exam: Deferred Rectal (Female) Exam: Deferred Back Exam: No: Normal Inspection (Not observed at this time due to the respiratory distress and the TLSO brace. ) Extremities: Normal Inspection, Normal Capillary Refill Neurological: Alert (To loud verbal. ), Oriented, Normal Cognition Skin Exam: Dry, Cool, Other (horripilation) Lymphatic: No Adenopathy Course - Vital Signs Last Recorded V/S: Last Vital Signs Temp 98.6 F 07/20/20 10:52 Pulse 103 H 07/20/20 10:52 Resp 28 H 07/20/20 10:52 BP 105/75 07/20/20 10:52 Pulse Ox 96 07/20/20 10:52 - Orders/Labs/Meds Orders: Active Orders 24 hr Category Date Time Status Admission Status [Patient Status] [ADT] Routine ADT 07/20/20 11:10 Ordered EKG Documentation Completion [RC] STAT Care 07/20/20 09:56 Active RT Aerosol Therapy [RC] ASDIRECTED Care 07/20/20 10:01 Active RT Aerosol Therapy [RC] ASDIRECTED Care 07/20/20 10:15 Active RT Aerosol Therapy [RC] ASDIRECTED Care 07/20/20 10:52 Active CULTURE BLOOD [BC] Stat Lab 07/20/20 10:18 Received CULTURE BLOOD [BC] Stat Lab 07/20/20 10:28 Received CULTURE URINE [RM] Stat Lab 07/20/20 10:45 Received Azithromycin [Zithromax] 500 mg Med 07/20/20 10:33 Active Sodium Chloride 0.9% [Normal Saline (AdvBag)] 250 ml IV STAT Sodium Chloride 0.9% [Saline Flush] Med 07/20/20 09:57 Active 10 ml FLUSH ASDIRECTED PRN Blood Culture x2 Reflex Set [OM.PC] Stat Oth 07/20/20 09:56 Ordered Peripheral IV Insertion Adult [OM.PC] Stat Oth 07/20/20 09:56 Ordered Medication Orders Azithromycin 500 mg/ Sodium (Chloride) 250 mls @ 250 mls/hr IV STAT ONE Stop: 07/20/20 11:32 Sodium Chloride (Saline Flush) 10 ml FLUSH ASDIRECTED PRN PRN Reason: Keep Vein Open Labs: Laboratory Tests 07/20/20 07/20/20 07/20/20 Range/Units 10:05 10:28 10:28 WBC 12.8 H (4.0-10.0) x10^3/uL RBC 4.00 (4.00-5.50) x10^6/uL Hgb 8.4 L D (12.0-16.0) g/dL Hct 29.7 L (33.0-47.0) % MCV 74.3 L D (78.0-93.0) fL MCH 21.0 L (26.0-32.0) pg MCHC 28.3 L (32.0-36.0) g/dL RDW Coeff of Grace 21.1 H (10.0-15.0) % Plt Count 276 D (130-400) x10^3/uL Neut % (Auto) 81.8 H (50.0-80.0) % Lymph % (Auto) 9.2 L (25.0-50.0) % [place] % (Auto) 7.7 (2.0-11.0) % Eos % (Auto) 1.1 (0.0-4.0) % Baso % (Auto) 0.2 (0.2-1.2) % VBG pH (7.33-7.43) pH VBG pCO2 (41-51) mmHG VBG pO2 mmHG VBG HCO3 (22-29) mmol/L VBG Total CO2 (23-30) mmol/L VBG O2 Saturation % VBG Base Excess ((-2)-3) mmol/L Sodium 138 (136-145) mmol/L Potassium 4.0 (3.5-5.1) mmol/L Chloride 99 (98-107) mmol/L Carbon Dioxide 33 H (21-32) mmol/L Anion Gap 10.0 (5-15) mmol/L BUN 5 L (7-18) mg/dL Creatinine 0.6 (0.55-1.02) mg/dL Est Cr Clr Drug Dosing TNP Estimated GFR (MDRD) > 60 Glucose 103 (74-106) mg/dL Lactic Acid (0.4-2.0) mmol/L Calcium 7.9 L (8.5-10.1) mg/dL Corrected Calcium 8.78 (8.5-10.1) mg/dL Total Bilirubin 0.3 (0.2-1.0) mg/dL AST 14 L (15-37) U/L ALT 14 (14-59) U/L Alkaline Phosphatase 91 (46-116) U/L Troponin I < 0.017 (<=0.056) ng/mL C-Reactive Protein 8.1 H (<=0.9) mg/dL NT-Pro-B Natriuret Pep (<=125) pg/mL Total Protein 6.7 (6.4-8.2) g/dL Albumin 2.9 L (3.4-5.0) g/dL Globulin 3.8 Albumin/Globulin Ratio 0.76 Urine Color (YELLOW) Urine Appearance (CLEAR) Urine pH (5.0-8.0) Ur Specific [place] Urine Protein (NEGATIVE) mg/dL Urine Glucose (UA) (NEGATIVE) mg/dL Urine Ketones (NEGATIVE) mg/dL Urine Occult Blood (NEGATIVE) Urine Nitrite (NEGATIVE) Urine Bilirubin (NEGATIVE) Urine Urobilinogen (0.2) EU/dL Ur Leukocyte Esterase (NEGATIVE) Urine RBC (NOT SEEN) /HPF Urine WBC (NOT SEEN) /HPF Ur Squamous Epith Cells (NEGATIVE) /HPF Amorphous Sediment Urine Bacteria (NEGATIVE) /HPF Urine Mucus (NEGATIVE) /LPF SARS-CoV-2 RNA (PAMELA) Negative (NEGATIVE) 07/20/20 07/20/20 07/20/20 Range/Units 10:28 10:28 10:28 WBC (4.0-10.0) x10^3/uL RBC (4.00-5.50) x10^6/uL Hgb (12.0-16.0) g/dL Hct (33.0-47.0) % MCV (78.0-93.0) fL MCH (26.0-32.0) pg MCHC (32.0-36.0) g/dL RDW Coeff of Grace (10.0-15.0) % Plt Count (130-400) x10^3/uL Neut % (Auto) (50.0-80.0) % Lymph % (Auto) (25.0-50.0) % [place] % (Auto) (2.0-11.0) % Eos % (Auto) (0.0-4.0) % Baso % (Auto) (0.2-1.2) % VBG pH 7.37 (7.33-7.43) pH VBG pCO2 51 (41-51) mmHG VBG pO2 81 mmHG VBG HCO3 30 H (22-29) mmol/L VBG Total CO2 29 (23-30) mmol/L VBG O2 Saturation 95 % VBG Base Excess 4 H ((-2)-3) mmol/L Sodium (136-145) mmol/L Potassium (3.5-5.1) mmol/L Chloride (98-107) mmol/L Carbon Dioxide (21-32) mmol/L Anion Gap (5-15) mmol/L BUN (7-18) mg/dL Creatinine (0.55-1.02) mg/dL Est Cr Clr Drug Dosing Estimated GFR (MDRD) Glucose (74-106) mg/dL Lactic Acid 1.5 (0.4-2.0) mmol/L Calcium (8.5-10.1) mg/dL Corrected Calcium (8.5-10.1) mg/dL Total Bilirubin (0.2-1.0) mg/dL AST (15-37) U/L ALT (14-59) U/L Alkaline Phosphatase (46-116) U/L Troponin I (<=0.056) ng/mL C-Reactive Protein (<=0.9) mg/dL NT-Pro-B Natriuret Pep 781 H (<=125) pg/mL Total Protein (6.4-8.2) g/dL Albumin (3.4-5.0) g/dL Globulin Albumin/Globulin Ratio Urine Color (YELLOW) Urine Appearance (CLEAR) Urine pH (5.0-8.0) Ur Specific [place] Urine Protein (NEGATIVE) mg/dL Urine Glucose (UA) (NEGATIVE) mg/dL Urine Ketones (NEGATIVE) mg/dL Urine Occult Blood (NEGATIVE) Urine Nitrite (NEGATIVE) Urine Bilirubin (NEGATIVE) Urine Urobilinogen (0.2) EU/dL Ur Leukocyte Esterase (NEGATIVE) Urine RBC (NOT SEEN) /HPF Urine WBC (NOT SEEN) /HPF Ur Squamous Epith Cells (NEGATIVE) /HPF Amorphous Sediment Urine Bacteria (NEGATIVE) /HPF Urine Mucus (NEGATIVE) /LPF SARS-CoV-2 RNA (PAMELA) (NEGATIVE) 07/20/20 Range/Units 10:45 WBC (4.0-10.0) x10^3/uL RBC (4.00-5.50) x10^6/uL Hgb (12.0-16.0) g/dL Hct (33.0-47.0) % MCV (78.0-93.0) fL MCH (26.0-32.0) pg MCHC (32.0-36.0) g/dL RDW Coeff of Grace (10.0-15.0) % Plt Count (130-400) x10^3/uL Neut % (Auto) (50.0-80.0) % Lymph % (Auto) (25.0-50.0) % [place] % (Auto) (2.0-11.0) % Eos % (Auto) (0.0-4.0) % Baso % (Auto) (0.2-1.2) % VBG pH (7.33-7.43) pH VBG pCO2 (41-51) mmHG VBG pO2 mmHG VBG HCO3 (22-29) mmol/L VBG Total CO2 (23-30) mmol/L VBG O2 Saturation % VBG Base Excess ((-2)-3) mmol/L Sodium (136-145) mmol/L Potassium (3.5-5.1) mmol/L Chloride (98-107) mmol/L Carbon Dioxide (21-32) mmol/L Anion Gap (5-15) mmol/L BUN (7-18) mg/dL Creatinine (0.55-1.02) mg/dL Est Cr Clr Drug Dosing Estimated GFR (MDRD) Glucose (74-106) mg/dL Lactic Acid (0.4-2.0) mmol/L Calcium (8.5-10.1) mg/dL Corrected Calcium (8.5-10.1) mg/dL Total Bilirubin (0.2-1.0) mg/dL AST (15-37) U/L ALT (14-59) U/L Alkaline Phosphatase (46-116) U/L Troponin I (<=0.056) ng/mL C-Reactive Protein (<=0.9) mg/dL NT-Pro-B Natriuret Pep (<=125) pg/mL Total Protein (6.4-8.2) g/dL Albumin (3.4-5.0) g/dL Globulin Albumin/Globulin Ratio Urine Color Dark yellow H (YELLOW) Urine Appearance Cloudy H (CLEAR) Urine pH 7.5 (5.0-8.0) Ur Specific [place] 1.020 Urine Protein 30 H (NEGATIVE) mg/dL Urine Glucose (UA) Negative (NEGATIVE) mg/dL Urine Ketones Negative (NEGATIVE) mg/dL Urine Occult Blood Negative (NEGATIVE) Urine Nitrite Negative (NEGATIVE) Urine Bilirubin Small H (NEGATIVE) Urine Urobilinogen >=8.0 H (0.2) EU/dL Ur Leukocyte Esterase Moderate H (NEGATIVE) Urine RBC 0-5 (NOT SEEN) /HPF Urine WBC 10-20 H (NOT SEEN) /HPF Ur Squamous Epith Cells Few H (NEGATIVE) /HPF Amorphous Sediment Rare Urine Bacteria Occasional H (NEGATIVE) /HPF Urine Mucus Few H (NEGATIVE) /LPF SARS-CoV-2 RNA (PAMELA) (NEGATIVE) Meds: Medications Generic Name Dose Route Start Last Admin Trade Name René PRN Reason Stop Dose Admin Azithromycin 500 mg/ Sodium 250 mls @ 250 mls/hr 07/20/20 10:33 Chloride IV 07/20/20 11:32 STAT ONE Sodium Chloride 10 ml 07/20/20 09:57 Saline Flush FLUSH ASDIRECTED PRN Keep Vein Open Discontinued Medications Generic Name Dose Route Start Last Admin Trade Name René PRN Reason Stop Dose Admin Albuterol 2.5 mg 07/20/20 10:51 07/20/20 10:54 Proventil Neb Soln NEB 07/20/20 10:52 2.5 mg ONETIME ONE Administration Albuterol/Ipratropium 3 ml 07/20/20 10:01 07/20/20 10:15 Duoneb 3.0-0.5 Mg/3 Ml NEB 07/20/20 10:02 3 ml ONETIME ONE Administration Budesonide 1 mg 07/20/20 10:15 07/20/20 10:28 Pulmicort NEB 07/20/20 10:16 1 mg ONETIME ONE Administration Ceftriaxone Sodium 1 gm 07/20/20 09:57 07/20/20 10:16 Rocephin IVPUSH 07/20/20 09:58 1 gm STAT ONE Administration Lactated Ringer's 1,000 mls @ 999 mls/hr 07/20/20 09:57 07/20/20 10:15 Ringers, Lactated IV 07/20/20 10:57 999 mls/hr ONETIME ONE Administration Methylprednisolone Sodium Succinate 125 mg 07/20/20 10:14 07/20/20 10:21 Solu-Medrol IVPUSH 07/20/20 10:15 125 mg ONETIME ONE Administration Methylprednisolone Sodium Succinate 125 mg 07/20/20 11:18 Solu-Medrol IVPUSH 07/20/20 11:19 ONETIME ONE - Radiology Interpretation Free Text/Narrative:: Chest x-ray per radiology shows no pneumonia or edema. Increased right hilar fullness increased size of cardiac silhouette - Re-Assessments/Exams Free Text/Narrative Re-Assessment/Exam: 07/20/20 10:29 She is s a difficult IV start and after multiple attempts I was able to place one with the Ultrasound to the right arm. Blood cultures x 2. Labs drawn. LR 1 liter wide open. Ceftriaxone 1 gram IVP Solu-medrol 125mg IVP Duo-neb and Budesonide nebulizer. COvid pending. Azithromycin 500mg IVPB. I did review her [place] chart in epic and she does have a diagnosis of COPD although she is not currently on any controllers for COPD. Has been relates that she is supposed to be using some type of inhaler at home but he is not sure of what it is and I do not see it documented in her med list. SHe was discharged from [facility] yesterday after hospitalization for pain management of her L4 compression fracture. 07/20/20 10:56 Venous blood gases with a pH of 7.37, PCO2 of 51 bicarb of 30 base excess of 40 this is the presentation of chronic retainer who is metabolically compensated she has no acidosis at that time. White blood cell count 12.8, hemoglobin 8.4 which is at her baseline she has known iron deficiency anemia and has been receiving Venofer IV. COVID is negative. UA with moderate Leuks, culture pending. Already given Rocephin. Her drowsiness does not appear to be due to severe hypercapnia this is most likely from her narcotics that she has been taking quite regularly at home according to her . Still quite audibly wheezing after the above nebulizers. She was given another albuterol nebulizer 2.5. ALso another dose of solu-medrol IVP 125mg 07/20/20 11:05 Lactic acid is normal as well as her troponin. She has a mildly elevated CRP at 8. 07/20/20 11:23 She is still requiring oxygen to keep her sats up above 92%. Her wheezing is much improved. She is still a little drowsy I ? if this is from her narcotics that she is taking at home. No pneumonia on CXR but with her moderate exacerbation of COPD UTI and oxygen requirement. I called and spoke with DR. Alfredo who is her PCP, HPI ER COURSE findings and concerns were relayed to her verbally over the phone. Her questions were answered and she accepted the patient in admission her for COPD exacerbation. I discussed the plan of care with the patient as well as her . They are comfortable with this plan and their questions answered. Departure - Departure Time of Disposition: 11:05 Disposition: Admitted As Inpatient 66 Clinical Impression: Hypoxemia, COPD exacerbation Lumbar compression fracture Qualifiers: Encounter type: initial encounter Lumbar vertebra fracture level: L4 Qualified Code(s): S32.040A - Wedge compression fracture of fourth lumbar vertebra, initial encounter for closed fracture Anemia Qualifiers: Anemia type: unspecified type Qualified Code(s): D64.9 - Anemia, unspecified UTI (urinary tract infection) Qualifiers: Urinary tract infection type: acute cystitis Hematuria presence: without hematuria Qualified Code(s): N30.00 - Acute cystitis without hematuria - Discharge Information Referrals: Kesha Alfredo MD [Primary Care Provider] - Forms: ED Department Discharge Sepsis Event Note (ED) - Evaluation Sepsis Screening Result: No Definite Risk - Focused Exam Vital Signs: Vital Signs Temp Pulse Resp BP Pulse Ox 07/20/20 10:52 98.6 F 103 H 28 H 105/75 96 07/20/20 10:28 98.4 F 105 H 28 H 107/74 96 07/20/20 09:42 98.0 F 108 H 36 H 96/56 L 84 L - My Orders Last 24 Hours: My Active Orders 07/20/20 09:56 EKG Documentation Completion [RC] STAT Blood Culture x2 Reflex Set [OM.PC] Stat Peripheral IV Insertion Adult [OM.PC] Stat 07/20/20 09:57 Sodium Chloride 0.9% [Saline Flush] 10 ml FLUSH ASDIRECTED PRN 07/20/20 10:01 RT Aerosol Therapy [RC] ASDIRECTED 07/20/20 10:15 RT Aerosol Therapy [RC] ASDIRECTED 07/20/20 10:18 CULTURE BLOOD [BC] Stat 07/20/20 10:28 CULTURE BLOOD [BC] Stat 07/20/20 10:33 Azithromycin [Zithromax] 500 mg Sodium Chloride 0.9% [Normal Saline (AdvBag)] 250 ml IV STAT 07/20/20 10:45 CULTURE URINE [RM] Stat 07/20/20 10:52 RT Aerosol Therapy [RC] ASDIRECTED 07/20/20 11:10 Admission Status [Patient Status] [ADT] Routine - Assessment/Plan Last 24 Hours: My Active Orders 07/20/20 09:56 EKG Documentation Completion [RC] STAT Blood Culture x2 Reflex Set [OM.PC] Stat Peripheral IV Insertion Adult [OM.PC] Stat 07/20/20 09:57 Sodium Chloride 0.9% [Saline Flush] 10 ml FLUSH ASDIRECTED PRN 07/20/20 10:01 RT Aerosol Therapy [RC] ASDIRECTED 07/20/20 10:15 RT Aerosol Therapy [RC] ASDIRECTED 07/20/20 10:18 CULTURE BLOOD [BC] Stat 07/20/20 10:28 CULTURE BLOOD [BC] Stat 07/20/20 10:33 Azithromycin [Zithromax] 500 mg Sodium Chloride 0.9% [Normal Saline (AdvBag)] 250 ml IV STAT 07/20/20 10:45 CULTURE URINE [RM] Stat 07/20/20 10:52 RT Aerosol Therapy [RC] ASDIRECTED 07/20/20 11:10 Admission Status [Patient Status] [ADT] Routine
[2020-07-20] MEDS ORDERED: Azithromycin 500 MG in Sodium Chloride 0.9% 250 ML IV ONE (10:33)
--- NOTE | 2020-07-20 10:36 | CR ---
[id number] RAD/RAD Chest PA or AP 1V EXAM: SINGLE VIEW CHEST. INDICATION: HYPOXIA TACHYPNEA COMPARISON: CORRELATION IS MADE WITH MAY 29, 2019 FINDINGS: The lungs are clear. The cardiomediastinal contour appears increased in size There is a hiatal hernia There is right hilar fullness CT chest may be helpful with IV contrast IMPRESSION: NO PNEUMONIA OR EDEMA. INCREASED RIGHT HILAR FULLNESS INCREASED SIZE OF CARDIAC [place] Josh Larson MD 07/20/20 [id number] Thank you for allowing us to participate in the care of your patient.
[2020-07-20 10:45] LABS: BASE EXCESS VENOUS 4 mmol/L ((-2)-3); BICARBONATE,VENOUS 30 mmol/L (22-29); O2 SATURATION VENOUS 95 %; PCO2 VENOUS 51 mmHG (41-51); PH,VENOUS 7.37 pH (7.33-7.43); PO2 VENOUS 81 mmHG
[2020-07-20] MEDS ORDERED: Albuterol 0.083% 2.5 MG/3 ML Neb Soln NEB ONE (10:51)
[2020-07-20 11:00] LABS: CHLORIDE,CL 99 mmol/L (98-107); SODIUM,NA 138 mmol/L (136-145)
[2020-07-20] MEDS ORDERED: Ondansetron 4 MG Tab.DIS PO PRN (13:22)
[2020-07-20] MEDS ORDERED: Acetaminophen 325 MG Tab PO PRN (13:22)
[2020-07-20] MEDS ORDERED: Docusate Sodium 100 MG Cap PO PRN (13:22)
[2020-07-20] MEDS ORDERED: ALPRAZolam 0.5 MG Tab PO PRN (13:26)
--- NOTE | 2020-07-20 15:11 | PCM.HP.2 ---
H&P History of Present Illness - General Date of Service: 07/20/20 Admit Problem/Dx: Admission Diagnosis/Problem Admission Diagnosis/Problem Acute exacerbation of chronic obstructive airways disease - History of Present Illness Initial Comments - Free Text/Narative: Maricarmen is a 54yoF who presented to the ED today from home with complaints of shortness of breath. Patient was recently hospitalized for pain management after falling down stairs and sustaining an L4 compression fracture. She admitted to [facility] in [place] from 07/15/2020 through 07/18/2020 and was evaluated by neurosurgery in [place] and placed into a TLSO brace; they wanted to see her back in one months time. She was discharged home with opioid pain medications. I did receive a message yesterday that she has been using her OxyIR 10 mg every 4 hours scheduled. Over the past 2 days she has had increasing shortness of breath and difficulty breathing; unable to sleep last night due to the degree of SOB. Care provider noted audible wheezing upon entry into the room with a prolonged expiratory phase. She was noted to be very drowsy. On arrival to the ER she was noted to be tachycardic with a pulse of 108, tachypneic with a respiratory rate of 36. Her O2 sat was 84%. She was initiated on supplemental oxygen and administered albuterol, DuoNeb, budesonide, Solu-Medrol 2 with improvement of her oxygen saturation and her respiratory status. Laboratory evaluation was notable for mild leukocytosis with a WBC of 12.8, neutrophil predominant. Hemoglobin was low at 8.4. Chemistry panel is notable for carbon dioxide level slightly high at 33. ABGs were within normal limits. A BNP was elevated at 781 (upper limit of normal 125). CXR with no sign of pneumonia nor overt fluid overload. Urinalysis did demonstrate a UTI. She is noted to be very fluid deficient and was given 1 L of LR. COVID testing was negative. Upon my entering the room the patient does have a quite but audible wheeze with prolonged expiratory. She is on 4L O2 per NC with sats in the mid-90s. She is very somnolent but will awaken for questioning. She is joined by her who offers collateral. He notes that she has been very drowsy and hard to alert since getting out of the hospital yesterday. Her last pain pill was this morning so he doesn't understand why she is so out of it. He is also concerned this is her heart or even her cholesterol causing these symptoms. I reassured him that I do not think this is the case, instead I believe this is the respiratory failure in conjunction with her cocktail of pain medications: gabapentin and oxy. - Related Data Allergies/Adverse Reactions: Allergies Allergy/AdvReac Type Severity Reaction Status Date / Time guaifenesin [From Mucinex] Allergy Intermediate Swollen Verified 07/20/20 11:03 Eyes cyclobenzaprine Allergy Hallucinati Verified 07/20/20 12:06 [From Flexeril] ons Home Medications: Home Meds Citalopram [Citalopram HBr] 30 mg PO DAILY 05/29/19 [History] ALPRAZolam [Xanax] 1 mg PO TID PRN 07/20/20 [History] Acetaminophen [Tylenol] 650 mg PO Q6H 07/20/20 [History] Cyanocobalamin (Vitamin B-12) [Vitamin B-12] 250 mcg PO DAILY 07/20/20 [History] Fluticasone Propionate [Flonase] 1 spray NS BID 07/20/20 [History] Gabapentin [Neurontin] 200 mg PO TID 07/20/20 [History] Sennosides/Docusate Sodium [Docusate Sodium-Sennosides Tab] 2 each PO BID PRN 0 07/20/20 [History] oxyCODONE HCl [Oxycodone HCl] 5 - 10 mg PO Q4H PRN 07/20/20 [History] polyethylene glycoL 3350 [Polyethylene Glycol 3350] 17 gm PO BID 07/20/20 [History] Past Medical History - Past Health History Medical/Surgical History: Denies Medical/Surgical History Respiratory History: Reports: COPD [employer]NER History: Reports: Other OB/BYN History: 2 children Psychiatric History: Reports: Anxiety, Depression Other Psychiatric History: History of anxiety. - Past Surgical History HEENT Surgical History: Reports: Other (See Below) Other HEENT Surgeries/Procedures: [place] teeth removed GI Surgical History: Reports: Appendectomy Social & Family History - Family History Family Medical History: No Pertinent Family History - Tobacco Use Tobacco Use Status *Q: Current Every Day Tobacco User Years of Tobacco use: 40 Packs/Tins Daily: 0.5 - Caffeine Use Caffeine Use: Reports: Soda H&P Review of Systems - Review of Systems: Review Of Systems: See Below General: Reports: Malaise, Fatigue HEENT: Reports: No Symptoms Pulmonary: Reports: Shortness of Breath, Wheezing, Cough Cardiovascular: Reports: No Symptoms Gastrointestinal: Reports: Constipation (x5 days per ) Musculoskeletal: Reports: Back Pain (TSLO in place, per neurosurgery for L4 compression fracture) Skin: Reports: No Symptoms Neurological: Reports: Confusion Exam - Exam Exam: See Below - Vital Signs Vital Signs: Last Vital Signs Temp 98.6 F 07/20/20 12:00 Pulse 93 07/20/20 12:00 Resp 16 07/20/20 12:00 BP 104/77 07/20/20 12:00 Pulse Ox 96 07/20/20 12:00 Weight: 195 lb 8 oz - Exam Quality Assessment: Supplemental Oxygen General: Lethargic HEENT: Conjunctiva Clear Neck: Supple Lungs: Wheezing, Other (prolonged expiratory phase) Cardiovascular: Regular Rate, Regular Rhythm, Systolic Murmur GI/Abdominal Exam: Other (deferred, patient not lying flat, in TSLO brace) Extremities: Non-Tender, No Pedal Edema Skin: Warm, Dry Neuro Extensive - Mental Status: Opens Eyes to Commands, Other (severly lethargic) - Patient Data Lab Results Last 24 hrs: Laboratory Results - last 24 hr 07/20/20 07/20/20 07/20/20 Range/Units 10:05 10:28 10:28 WBC 12.8 H (4.0-10.0) x10^3/uL RBC 4.00 (4.00-5.50) x10^6/uL Hgb 8.4 L D (12.0-16.0) g/dL Hct 29.7 L (33.0-47.0) % MCV 74.3 L D (78.0-93.0) fL MCH 21.0 L (26.0-32.0) pg MCHC 28.3 L (32.0-36.0) g/dL RDW Coeff of Grace 21.1 H (10.0-15.0) % Plt Count 276 D (130-400) x10^3/uL Neut % (Auto) 81.8 H (50.0-80.0) % Lymph % (Auto) 9.2 L (25.0-50.0) % [place] % (Auto) 7.7 (2.0-11.0) % Eos % (Auto) 1.1 (0.0-4.0) % Baso % (Auto) 0.2 (0.2-1.2) % VBG pH (7.33-7.43) pH VBG pCO2 (41-51) mmHG VBG pO2 mmHG VBG HCO3 (22-29) mmol/L VBG Total CO2 (23-30) mmol/L VBG O2 Saturation % VBG Base Excess ((-2)-3) mmol/L Sodium 138 (136-145) mmol/L Potassium 4.0 (3.5-5.1) mmol/L Chloride 99 (98-107) mmol/L Carbon Dioxide 33 H (21-32) mmol/L Anion Gap 10.0 (5-15) mmol/L BUN 5 L (7-18) mg/dL Creatinine 0.6 (0.55-1.02) mg/dL Est Cr Clr Drug Dosing TNP Estimated GFR (MDRD) > 60 Glucose 103 (74-106) mg/dL Lactic Acid (0.4-2.0) mmol/L Calcium 7.9 L (8.5-10.1) mg/dL Corrected Calcium 8.78 (8.5-10.1) mg/dL Total Bilirubin 0.3 (0.2-1.0) mg/dL AST 14 L (15-37) U/L ALT 14 (14-59) U/L Alkaline Phosphatase 91 (46-116) U/L Troponin I < 0.017 (<=0.056) ng/mL C-Reactive Protein 8.1 H (<=0.9) mg/dL NT-Pro-B Natriuret Pep (<=125) pg/mL Total Protein 6.7 (6.4-8.2) g/dL Albumin 2.9 L (3.4-5.0) g/dL Globulin 3.8 Albumin/Globulin Ratio 0.76 Urine Color (YELLOW) Urine Appearance (CLEAR) Urine pH (5.0-8.0) Ur Specific [place] Urine Protein (NEGATIVE) mg/dL Urine Glucose (UA) (NEGATIVE) mg/dL Urine Ketones (NEGATIVE) mg/dL Urine Occult Blood (NEGATIVE) Urine Nitrite (NEGATIVE) Urine Bilirubin (NEGATIVE) Urine Urobilinogen (0.2) EU/dL Ur Leukocyte Esterase (NEGATIVE) Urine RBC (NOT SEEN) /HPF Urine WBC (NOT SEEN) /HPF Ur Squamous Epith Cells (NEGATIVE) /HPF Amorphous Sediment Urine Bacteria (NEGATIVE) /HPF Urine Mucus (NEGATIVE) /LPF SARS-CoV-2 RNA (PAMELA) Negative (NEGATIVE) 07/20/20 07/20/20 07/20/20 Range/Units 10:28 10:28 10:28 WBC (4.0-10.0) x10^3/uL RBC (4.00-5.50) x10^6/uL Hgb (12.0-16.0) g/dL Hct (33.0-47.0) % MCV (78.0-93.0) fL MCH (26.0-32.0) pg MCHC (32.0-36.0) g/dL RDW Coeff of Grace (10.0-15.0) % Plt Count (130-400) x10^3/uL Neut % (Auto) (50.0-80.0) % Lymph % (Auto) (25.0-50.0) % [place] % (Auto) (2.0-11.0) % Eos % (Auto) (0.0-4.0) % Baso % (Auto) (0.2-1.2) % VBG pH 7.37 (7.33-7.43) pH VBG pCO2 51 (41-51) mmHG VBG pO2 81 mmHG VBG HCO3 30 H (22-29) mmol/L VBG Total CO2 29 (23-30) mmol/L VBG O2 Saturation 95 % VBG Base Excess 4 H ((-2)-3) mmol/L Sodium (136-145) mmol/L Potassium (3.5-5.1) mmol/L Chloride (98-107) mmol/L Carbon Dioxide (21-32) mmol/L Anion Gap (5-15) mmol/L BUN (7-18) mg/dL Creatinine (0.55-1.02) mg/dL Est Cr Clr Drug Dosing Estimated GFR (MDRD) Glucose (74-106) mg/dL Lactic Acid 1.5 (0.4-2.0) mmol/L Calcium (8.5-10.1) mg/dL Corrected Calcium (8.5-10.1) mg/dL Total Bilirubin (0.2-1.0) mg/dL AST (15-37) U/L ALT (14-59) U/L Alkaline Phosphatase (46-116) U/L Troponin I (<=0.056) ng/mL C-Reactive Protein (<=0.9) mg/dL NT-Pro-B Natriuret Pep 781 H (<=125) pg/mL Total Protein (6.4-8.2) g/dL Albumin (3.4-5.0) g/dL Globulin Albumin/Globulin Ratio Urine Color (YELLOW) Urine Appearance (CLEAR) Urine pH (5.0-8.0) Ur Specific [place] Urine Protein (NEGATIVE) mg/dL Urine Glucose (UA) (NEGATIVE) mg/dL Urine Ketones (NEGATIVE) mg/dL Urine Occult Blood (NEGATIVE) Urine Nitrite (NEGATIVE) Urine Bilirubin (NEGATIVE) Urine Urobilinogen (0.2) EU/dL Ur Leukocyte Esterase (NEGATIVE) Urine RBC (NOT SEEN) /HPF Urine WBC (NOT SEEN) /HPF Ur Squamous Epith Cells (NEGATIVE) /HPF Amorphous Sediment Urine Bacteria (NEGATIVE) /HPF Urine Mucus (NEGATIVE) /LPF SARS-CoV-2 RNA (PAMELA) (NEGATIVE) 07/20/20 Range/Units 10:45 WBC (4.0-10.0) x10^3/uL RBC (4.00-5.50) x10^6/uL Hgb (12.0-16.0) g/dL Hct (33.0-47.0) % MCV (78.0-93.0) fL MCH (26.0-32.0) pg MCHC (32.0-36.0) g/dL RDW Coeff of Grace (10.0-15.0) % Plt Count (130-400) x10^3/uL Neut % (Auto) (50.0-80.0) % Lymph % (Auto) (25.0-50.0) % [place] % (Auto) (2.0-11.0) % Eos % (Auto) (0.0-4.0) % Baso % (Auto) (0.2-1.2) % VBG pH (7.33-7.43) pH VBG pCO2 (41-51) mmHG VBG pO2 mmHG VBG HCO3 (22-29) mmol/L VBG Total CO2 (23-30) mmol/L VBG O2 Saturation % VBG Base Excess ((-2)-3) mmol/L Sodium (136-145) mmol/L Potassium (3.5-5.1) mmol/L Chloride (98-107) mmol/L Carbon Dioxide (21-32) mmol/L Anion Gap (5-15) mmol/L BUN (7-18) mg/dL Creatinine (0.55-1.02) mg/dL Est Cr Clr Drug Dosing Estimated GFR (MDRD) Glucose (74-106) mg/dL Lactic Acid (0.4-2.0) mmol/L Calcium (8.5-10.1) mg/dL Corrected Calcium (8.5-10.1) mg/dL Total Bilirubin (0.2-1.0) mg/dL AST (15-37) U/L ALT (14-59) U/L Alkaline Phosphatase (46-116) U/L Troponin I (<=0.056) ng/mL C-Reactive Protein (<=0.9) mg/dL NT-Pro-B Natriuret Pep (<=125) pg/mL Total Protein (6.4-8.2) g/dL Albumin (3.4-5.0) g/dL Globulin Albumin/Globulin Ratio Urine Color Dark yellow H (YELLOW) Urine Appearance Cloudy H (CLEAR) Urine pH 7.5 (5.0-8.0) Ur Specific [place] 1.020 Urine Protein 30 H (NEGATIVE) mg/dL Urine Glucose (UA) Negative (NEGATIVE) mg/dL Urine Ketones Negative (NEGATIVE) mg/dL Urine Occult Blood Negative (NEGATIVE) Urine Nitrite Negative (NEGATIVE) Urine Bilirubin Small H (NEGATIVE) Urine Urobilinogen >=8.0 H (0.2) EU/dL Ur Leukocyte Esterase Moderate H (NEGATIVE) Urine RBC 0-5 (NOT SEEN) /HPF Urine WBC 10-20 H (NOT SEEN) /HPF Ur Squamous Epith Cells Few H (NEGATIVE) /HPF Amorphous Sediment Rare Urine Bacteria Occasional H (NEGATIVE) /HPF Urine Mucus Few H (NEGATIVE) /LPF SARS-CoV-2 RNA (PAMELA) (NEGATIVE) Result Diagrams: 07/20/20 10:28 07/20/20 10:28 Sepsis Event Note - Evaluation Sepsis Screening Result: No Definite Risk - Focused Exam Vital Signs: Vital Signs Temp Pulse Resp BP Pulse Ox 07/20/20 12:00 98.6 F 93 16 104/77 96 07/20/20 11:28 89.3 F L 95 18 116/80 07/20/20 10:52 98.6 F 103 H 28 H 105/75 96 07/20/20 10:28 98.4 F 105 H 28 H 107/74 96 07/20/20 09:42 98.0 F 108 H 36 H 96/56 L 84 L - Problem List (1) Anemia SNOMED Code(s): 090827038 ICD Code: D64.9 - ANEMIA, UNSPECIFIED Status: Acute Current Visit: Yes Qualifiers: Anemia type: unspecified type Qualified Code(s): D64.9 - Anemia, unspecified (2) COPD exacerbation SNOMED Code(s): 485675886 ICD Code: J44.1 - CHRONIC OBSTRUCTIVE PULMONARY DISEASE W (ACUTE) EXACERBATION Status: Acute Current Visit: Yes (3) Hypoxemia SNOMED Code(s): 631543734 ICD Code: R09.02 - HYPOXEMIA Status: Acute Current Visit: Yes (4) Lumbar compression fracture SNOMED Code(s): 493679945 ICD Code: S32.000A - WEDGE COMPRESSION FRACTURE OF UNSP LUMBAR VERTEBRA, INIT Status: Acute Current Visit: Yes Qualifiers: Encounter type: initial encounter Lumbar vertebra fracture level: L4 Qualified Code(s): S32.040A - Wedge compression fracture of fourth lumbar vertebra, initial encounter for closed fracture (5) UTI (urinary tract infection) SNOMED Code(s): 67593971 ICD Code: N39.0 - URINARY TRACT INFECTION, SITE NOT SPECIFIED Status: Acute Current Visit: Yes Qualifiers: Urinary tract infection type: acute cystitis Hematuria presence: without hematuria Qualified Code(s): N30.00 - Acute cystitis without hematuria (6) Anxiety SNOMED Code(s): 09364494 ICD Code: F41.9 - ANXIETY DISORDER, UNSPECIFIED Status: Acute Current Visit: No (7) Gastroesophageal reflux disease SNOMED Code(s): 066487014 ICD Code: K21.9 - GASTRO-ESOPHAGEAL REFLUX DISEASE WITHOUT ESOPHAGITIS Status: Chronic Current Visit: No Problem List Initiated/Reviewed/Updated: Yes Orders Last 24hrs: Active Orders 24 hr Category Date Time Status Admission Status [Patient Status] [ADT] Routine ADT 07/20/20 11:10 Active Incentive Spirometry [RT Incentive Spirometry] [RC] Care 07/20/20 13:26 Active Q2HWA Intake and Output [RC] QSHIFT Care 07/20/20 13:22 Active Oxygen Therapy [RC] PRN Care 07/20/20 13:22 Active Pulse Oximetry [RC] CONTINUOUS Care 07/20/20 13:22 Active RT Aerosol Therapy [RC] .PRN Care 07/20/20 10:52 Active Up With Assistance [RC] ASDIRECTED Care 07/20/20 13:22 Active VTE/DVT Education [RC] PER UNIT ROUTINE Care 07/20/20 13:22 Active Vital Signs [RC] Q4H Care 07/20/20 13:22 Active Consult to Respiratory Therapy [Respiratory Care Assess Cons 07/20/20 13:25 Active and Treatment] [CONS] Routine PT Evaluation and Treatment [CONS] Routine Cons 07/20/20 13:25 Active Regular Diet [DIET] Diet 07/20/20 Dinner Active BASIC METABOLIC PANEL,BMP [CHEM] DAILY Lab 07/21/20 06:00 Ordered CBC WITH AUTO DIFF [HEME] DAILY Lab 07/21/20 06:00 Ordered CULTURE BLOOD [BC] Stat Lab 07/20/20 10:18 Received CULTURE BLOOD [BC] Stat Lab 07/20/20 10:28 Received CULTURE URINE [RM] Stat Lab 07/20/20 10:45 Received ALPRAZolam [Xanax] Med 07/20/20 13:26 Active 1 mg PO TID PRN Acetaminophen [TylenoL] Med 07/20/20 13:22 Active 650 mg PO Q4H PRN Acetaminophen/HYDROcodone [[place] 325-5 MG] Med 07/20/20 13:22 Active 1 tab PO Q4H PRN Citalopram [Celexa] Med 07/21/20 08:00 Active 30 mg PO DAILY Docusate Sodium [Colace] Med 07/20/20 13:22 Active 100 mg PO BID PRN Fluticasone Propionate Med 07/20/20 20:00 Active 0 ml NASBOTH BID HYDROmorphone [Dilaudid] Med 07/20/20 13:22 Active 0.25 mg IVPUSH Q2H PRN Heparin Sodium Med 07/20/20 16:00 Active 5,000 units SUBCUT Q8H Nicotine [Habitrol] Med 07/20/20 13:30 Active 14 mg TRDERM DAILY Ondansetron [Zofran ODT] Med 07/20/20 13:22 Active 4 mg PO Q6H PRN Sodium Chloride 0.9% [Saline Flush] Med 07/20/20 09:57 Active 10 ml FLUSH ASDIRECTED PRN polyethylene glycoL 3350 [MiraLAX] Med 07/21/20 08:00 Active 17 gm PO BID Blood Culture x2 Reflex Set [OM.PC] Stat Oth 07/20/20 09:56 Ordered Peripheral IV Insertion Adult [OM.PC] Stat Oth 07/20/20 09:56 Ordered Resuscitation Status Routine Resus Stat 07/20/20 13:22 Ordered Medication Orders Acetaminophen (Tylenol) 650 mg PO Q4H PRN PRN Reason: Pain (Mild 1-3)/fever Hydrocodone Bitart/Acetaminophen ([place] 325-5 Mg) 1 tab PO Q4H PRN PRN Reason: Pain (moderate 4-6) Alprazolam (Xanax) 1 mg PO TID PRN PRN Reason: Anxiety Citalopram Hydrobromide (Celexa) 30 mg PO DAILY SOFIYA Docusate Sodium (Colace) 100 mg PO BID PRN PRN Reason: Constipation Fluticasone Propionate (Fluticasone Propionate) 0 ml NASBOTH BID SOFIYA Heparin Sodium (Porcine) (Heparin Sodium) 5,000 units SUBCUT Q8H SOFIYA Hydromorphone HCl (Dilaudid) 0.25 mg IVPUSH Q2H PRN PRN Reason: Pain (severe 7-10) Nicotine (Habitrol) 14 mg TRDERM DAILY SOFIYA Ondansetron HCl (Zofran Odt) 4 mg PO Q6H PRN PRN Reason: nausea, able to take PO Polyethylene Glycol (Miralax) 17 gm PO BID SOFIYA Sodium Chloride (Saline Flush) 10 ml FLUSH ASDIRECTED PRN PRN Reason: Keep Vein Open Assessment/Plan Comment:: COPD exacerbation Acute Hypoxic Respiratory Failure -Status post multiple nebulizers as well as IV Solu-Medrol 2 in the ER -Mild leukocytosis -Rocephin and azithromycin given in the ED Plan: -Continue Rocephin and azithromycin -Duoneb q4hr -Methylprednisolone 60mg IV BID, minimum of 5 days of steroids (deescalate to prednisone 40mg/day when able) -RT consult -IS q2hwa -Blood Cultures pending Urinary tract infection -UA with small leukocyte esterase, 10-20 WBCs, occasional bacteria. Plan: -Coverage with Rocephin as above -Urine and Blood Cultures pending L4 compression fracture Lethargy -Patient discharged from [facility] on 07/19/20 for L4 compression fracture with brace, no surgery -Concern for overuse of opioid and gabapentin causes congnition changes/lethargy Plan: -Pain control: Tylenol, norco, dilaudid prn -Holding gabapentin due to concerns of sedation -PT consult -Brace on unless lying completely flat Anemia -Hgb8.4, patient 8-9 while inpatient in advance, had not had it measure for 3 years prior Plan: -Monitor CBC daily Constipation -Likely opioid-induced Plan: -Enema today -Continue stool softeners, miralax daily -Monitor -Zofran ordered for nausea prn Chronic: COPD - patient was not on meds prior to admit, manage as above Tobacco use disorder (1/2ppd) - nicotine patch, 14mcg daily MDD/SUBHA - continue home citalopram and Xanax (PRN) GERD - omeprazole BID Diet: Regular DVT: SQ heparin, CBC daily to monitor CODE: FULL Disposition: admitting for it hypoxic respiratory failure in the setting of a COPD exacerbation. Patients somnolence which is likely secondary to her pain control medication for her recent L4 fracture is likely not helping her respiratory status nor is her constipation or the brace. We will treat her as above. Short leash to send her to higher level of care she does not show much turnaround the next 24-48 hours. Anticipate 3-5 days of hospitalization.
[2020-07-20] MEDS: Nicotine 14 MG/24 Hr Patch TRDERM SCH (17:36)
[2020-07-20] MEDS: HYDROmorphone 0.5 MG/0.5 ML Syringe IVPUSH PRN ×2 (17:37→22:28)
[2020-07-20] MEDS: Heparin Sodium 5,000 Units/ML Vial SUBCUT SCH ×2 (17:39→23:36)
[2020-07-20] MEDS: Sodium Phosphate,Monobasic/Sodium Phosphate,Dibasic Enema 133 ML Bottle RECTAL ONE (17:39)
[2020-07-20] MEDS: Albuterol/Ipratropium 3.0-0.5 MG/3 ML Neb Soln NEB SCH (19:01)
[2020-07-20] MEDS ORDERED: Magnesium Citrate Solution 296 ML Bottle PO ONE (19:32)
[2020-07-20] MEDS: Fluticasone Propionate Nasal Spray 9.9 ML BOTTLE NASBOTH SCH (19:42)
[2020-07-20] MEDS: Acetaminophen/HYDROcodone 325-5 MG Tab PO PRN (19:42)
[2020-07-20] MEDS: ALPRAZolam 0.5 MG Tab PO PRN (19:43)
[2020-07-21] MEDS: Acetaminophen/HYDROcodone 325-5 MG Tab PO PRN ×4 (02:24→19:30)
[2020-07-21] MEDS: Sodium Phosphate,Monobasic/Sodium Phosphate,Dibasic Enema 133 ML Bottle RECTAL ONE (02:25)
[2020-07-21] MEDS: Albuterol/Ipratropium 3.0-0.5 MG/3 ML Neb Soln NEB SCH ×5 (02:25→19:30)
[2020-07-21 08:12] LABS: CHLORIDE,CL 103 mmol/L (98-107); SODIUM,NA 143 mmol/L (136-145)
[2020-07-21 08:28] LABS: ANION GAP 10.8 mmol/L (5-15)
[2020-07-21] MEDS: Citalopram 10 MG Tab PO SCH (08:42)
[2020-07-21] MEDS: HYDROmorphone 0.5 MG/0.5 ML Syringe IVPUSH PRN ×2 (08:42→16:09)
[2020-07-21] MEDS: Heparin Sodium 5,000 Units/ML Vial SUBCUT SCH ×2 (08:44→16:09)
[2020-07-21] MEDS: cefTRIAXone 1 GM Vial IVPUSH SCH (08:46)
[2020-07-21] MEDS: ALPRAZolam 0.5 MG Tab PO PRN ×2 (08:50→14:55)
[2020-07-21] MEDS: Nicotine 14 MG/24 Hr Patch TRDERM SCH (08:51)
[2020-07-21] MEDS: Fluticasone Propionate Nasal Spray 9.9 ML BOTTLE NASBOTH SCH ×2 (08:51→22:49)
[2020-07-21] MEDS: Polyethylene Glycol 3350 Powder 17 GM Packet PO SCH ×2 (08:51→19:57)
[2020-07-21] MEDS: Azithromycin 500 MG in Sodium Chloride 0.9% 250 ML IV SCH (08:58)
[2020-07-21] MEDS ORDERED: Albuterol/Ipratropium 3.0-0.5 MG/3 ML Neb Soln NEB PRN (09:45)
[2020-07-21] MEDS: Nicotine 21 MG/24 Hr Patch TRDERM SCH (11:53)
[2020-07-21] MEDS: methylPREDNISolone Sodium Succinate 40 MG/1 ML SDV IVPUSH SCH (11:53)
[2020-07-21] MEDS: Sodium Chloride 0.9% 10 ML Syringe FLUSH PRN (16:10)
[2020-07-22] MEDS: Heparin Sodium 5,000 Units/ML Vial SUBCUT SCH ×3 (01:03→15:00)
[2020-07-22] MEDS: Acetaminophen/HYDROcodone 325-5 MG Tab PO PRN ×4 (04:49→20:25)
--- NOTE | 2020-07-22 04:53 | PN ---
Progress Note for KOBE VINCENT Date: 07/21/2020 Room #: VM.203 CHIEF COMPLAINT: Shortness of breath. SUBJECTIVE: Hospital day #2 for a 54-year-old female patient who was admitted to the acute care floor yesterday for complaints of shortness of breath. The patient had been recently hospitalized at [facility] in [place] on 07/15 for an L4 compression fracture after she fell. The evening prior to admission, the patient developed shortness of breath and was becoming more somnolent at home, therefore, she was brought to the Emergency Room for further evaluation. The patient denies any headaches this morning. She denies any dizziness or lightheadedness. The patient states she does have a productive cough producing a green/yellow appearing purulent sputum. The patient states her shortness of breath has greatly improved. The patient denies any chest pain or palpitations. Patient has not had any abdominal pain. Patient continues to have some issues with constipation. No diarrhea. Patient denies any nausea or vomiting. The patient states she feels somewhat weak. Her pain has been well controlled with current medications. The patient is using a TLSO brace when she is out of bed. REVIEW OF SYSTEMS: Skin: Negative. Respiratory: Productive cough, no shortness of breath. Cardiovascular: Negative. Abdomen: Negative outside of constipation. Neurological: Negative. Constitutional: Negative. PHYSICAL EXAMINATION: Vital Signs: Temperature 98.2, pulse 98, blood pressure 116/74, respirations 16, oxygen saturation 92% on 2 L. General: Patient is alert. Patient does not appear to be in any acute distress. Patient is cooperative. Skin: Intact, warm and dry. Respiratory: Bibasilar crackles with scattered rhonchi throughout. Cardiovascular: Regular rate and rhythm, no murmur. Abdomen: Bowel sounds are hypoactive x4. Abdomen is generally tender and somewhat distended. Neurological: No focal neurological deficits. Patient is alert and oriented x3. LABORATORY DATA: 1. CBC: White blood cell count 10.5, hemoglobin 7.6, hematocrit 26.9, platelets 258,000. 2. BMP: Sodium 143, potassium 3.8, chloride 103, CO2 of 33, anion gap 10.8, BUN 11, creatinine 0.5, GFR greater than 60, glucose 141, calcium 8.4. ASSESSMENT: 1. Acute on chronic chronic obstructive pulmonary disease exacerbation. 2. Acute hypoxic respiratory failure. 3. Urinary tract infection. 4. Anemia. 5. Lumbar compression fracture. 6. Anxiety. 7. Gastroesophageal reflux disease. PLAN: Hospital day #2 for a 54-year-old female patient who was admitted for the above diagnoses. The patient is doing better today. She continues to require oxygen to maintain her saturation greater than 90%. Continue with Solu-Medrol 40 mg IV daily. We will continue with Rocephin and Zithromax per GOLD guidelines and also for treatment of UTI. Encouraged incentive spirometer. Encouraged cough and deep breathing. RT will continue to follow. We will await PT evaluation. Continue all other medications the same. We will change nebulizers to every 4 hours while awake. We will continue on IV fluids for now, I anticipate discontinuation tomorrow. The patient's hemoglobin is 7.6 and felt to be dilutional. The patient has remained hemodynamically stable. Recheck blood work tomorrow morning. TB: 07/21/2020 11:28:08 MODL: 07/21/2020 12:09:13 /[id number]
[2020-07-22] MEDS: Albuterol/Ipratropium 3.0-0.5 MG/3 ML Neb Soln NEB SCH ×4 (07:11→20:22)
[2020-07-22] MEDS: Azithromycin 500 MG in Sodium Chloride 0.9% 250 ML IV SCH (08:09)
[2020-07-22] MEDS: methylPREDNISolone Sodium Succinate 40 MG/1 ML SDV IVPUSH SCH (08:10)
[2020-07-22] MEDS: cefTRIAXone 1 GM Vial IVPUSH SCH (08:10)
[2020-07-22] MEDS: ALPRAZolam 0.5 MG Tab PO PRN ×3 (08:12→20:23)
[2020-07-22] MEDS: Citalopram 10 MG Tab PO SCH (08:12)
[2020-07-22] MEDS: Polyethylene Glycol 3350 Powder 17 GM Packet PO SCH ×2 (08:12→20:43)
[2020-07-22] MEDS: Nicotine 21 MG/24 Hr Patch TRDERM SCH (08:12)
[2020-07-22] MEDS: Fluticasone Propionate Nasal Spray 9.9 ML BOTTLE NASBOTH SCH ×2 (08:12→20:23)
[2020-07-22] MEDS: HYDROmorphone 0.5 MG/0.5 ML Syringe IVPUSH PRN ×2 (08:29→14:50)
[2020-07-22 08:43] LABS: CHLORIDE,CL 104 mmol/L (98-107); SODIUM,NA 142 mmol/L (136-145)
--- NOTE | 2020-07-22 12:29 | PN ---
Progress Note for KOBE VINCENT Date: 07/22/2020 Room #: VM.203 CHIEF COMPLAINT: Shortness of breath. SUBJECTIVE: Hospital day #3 for a 54-year-old female patient who was admitted to the acute care floor 2 days ago for complaints of shortness of breath. The patient was recently hospitalized at [facility] on 07/15/2020 for an L4 compression fracture after she fell. The evening prior to admission, the patient developed shortness of breath and was becoming more somnolent at home. Therefore, the patient was brought to the emergency room for further evaluation. The patient states she is feeling okay today. She states she slept well. The patient continues to have a productive cough producing a green/yellow-appearing purulent sputum. The patient states she feels short of breath, especially with coughing. The patient continues to have audible wheezing. The patient has not been formally treated for her COPD in the past. The patient denies any headaches. No dizziness or lightheadedness. The patient denies any back pain. The patient denies any chest pain or palpitations. No issues with urination or bowel movement. The patient did receive an enema yesterday which was very productive. REVIEW OF SYSTEMS: Constitutional: Negative. Skin: Negative. Respiratory: Productive cough, shortness of breath. Cardiovascular: Negative. Neurological: Negative. Abdomen: Negative. PHYSICAL EXAMINATION: Vital Signs: Temperature 97.4, pulse 91, blood pressure 133/78, respirations 16, oxygen saturation 96% on 1 L. Skin: Intact, warm and dry. Respiratory: End-expiratory wheezing with bibasilar crackles and scattered rhonchi throughout. Cardiovascular: Regular rate and rhythm, no murmur. Abdomen: Soft, nontender. Bowel sounds are hypoactive x4. Neurological: No focal neurological deficits. The patient is alert and oriented x3. LABORATORY STUDIES: 1. CBC: White blood cell count 13.5, hemoglobin 8.2, hematocrit 29.0, platelets 278,000. 2. BMP: Sodium 142, potassium 4.0, chloride 104, CO2 of 29, anion gap 13.0, BUN 9, creatinine 0.7, GFR greater than 60, glucose 90, calcium 8.5, AST 20, ALT 21, alkaline phosphatase 82, total protein 6.6, albumin 2.9. ASSESSMENT: 1. Acute hypoxic respiratory failure. 2. [id number] chronic obstructive pulmonary disease exacerbation. 3. Urinary tract infection. 4. Anemia. 5. Lumbar compression fracture, L4. 6. Anxiety. 7. Gastroesophageal reflux disease. PLAN: Hospital day #3 for a 54-year-old patient who was admitted for the above diagnoses. Given the elevation in the WBCs and the patient's productive cough, we will recheck an x-ray today and compare to the admitting x-ray. Continue with IV antibiotics. Continue with bronchodilators and Solu-Medrol. The patient needs to stay well-hydrated. We discussed incentive spirometry and cough and deep breathing. Encouraged the patient to get out of the bed as much as possible and as able. Hemoglobin has improved since yesterday. We will continue to trend. We will recheck blood work tomorrow morning. TB: 07/22/2020 11:53:54 MODL: 07/22/2020 12:21:26 /[id number]
--- NOTE | 2020-07-22 12:36 | CR ---
[id number] RAD/RAD Chest PA or AP 1V EXAM: RAD Chest PA or AP 1V INDICATION: SHORTNESS OF BREATH, PRODUCTIVE COUGH, COPD. COMPARISON: Radiograph from July 20, 2020. CT from May 27, 2019. DISCUSSION: Cardiomediastinal silhouette is unchanged from the prior examination. Linear opacity in the right midlung left lower lobe. Findings are consistent with scarring seen on CT from 2018. No evidence of pneumonia. No pleural effusion or pneumothorax. IMPRESSION: As above. Jose Dill MD 07/22/20 [id number] Thank you for allowing us to participate in the care of your patient.
[2020-07-22] MEDS ORDERED: Calcium Carbonate 750 MG Tab.Chew PO PRN (17:07)
[2020-07-22] MEDS: Omeprazole 20 MG Cap.CR PO SCH (17:58)
[2020-07-22] MEDS ORDERED: Nicotine 14 MG/24 Hr Patch TRDERM ONE (19:15)
[2020-07-22] MEDS ORDERED: Omeprazole 20 MG Cap.CR PO SCH (20:00)
[2020-07-23] MEDS: Heparin Sodium 5,000 Units/ML Vial SUBCUT SCH ×3 (05:43→16:07)
[2020-07-23] MEDS: Acetaminophen/HYDROcodone 325-5 MG Tab PO PRN ×2 (06:06→20:21)
[2020-07-23 06:47] LABS: CHLORIDE,CL 102 mmol/L (98-107); SODIUM,NA 140 mmol/L (136-145)
[2020-07-23] MEDS: Nicotine 21 MG/24 Hr Patch TRDERM SCH (08:10)
[2020-07-23] MEDS: Albuterol/Ipratropium 3.0-0.5 MG/3 ML Neb Soln NEB SCH ×4 (08:10→20:21)
[2020-07-23] MEDS: Citalopram 10 MG Tab PO SCH (08:10)
[2020-07-23] MEDS: methylPREDNISolone Sodium Succinate 40 MG/1 ML SDV IVPUSH SCH (08:10)
[2020-07-23] MEDS: Fluticasone Propionate Nasal Spray 9.9 ML BOTTLE NASBOTH SCH ×2 (08:11→20:20)
[2020-07-23] MEDS: cefTRIAXone 1 GM Vial IVPUSH SCH (08:12)
[2020-07-23] MEDS: Azithromycin 500 MG in Sodium Chloride 0.9% 250 ML IV SCH (08:16)
[2020-07-23] MEDS: Polyethylene Glycol 3350 Powder 17 GM Packet PO SCH ×2 (08:16→20:33)
[2020-07-23] MEDS: ALPRAZolam 0.5 MG Tab PO PRN ×2 (08:22→20:21)
--- NOTE | 2020-07-23 08:33 | PCM.PN ---
- General Info Date of Service: 07/23/20 Admission Dx/Problem (Free Text): Admission Diagnosis/Problem Admission Diagnosis/Problem Acute exacerbation of chronic obstructive airways disease Subjective Update: Maricarmen is a 54yoF who is HD #4 for COPD exacerbation and acute hypoxic respiratory failure. Over the weekend her clinical condition has drastically improved. Her mentation has cleared. Her O2 demand has decreased to needs only when sleeping (nursing notes dips into the high 70s if O2 off while sleeping); ?MELANIE. She continues to have have back pain due to the compression fracture; doing well on the norco 5mg with prn dilaudid only 2x/day. Sleeping through the night. Maricarmen has no new concerns today; just wondering about plan of care. Still coughing up some yellow/green sputum. Still has the back pain. Getting const ipated again today; we discussed this is likely 2/2 the pain medication. Looking forward to working with PT. Functional Status: Reports: Pain Controlled, Tolerating Diet, Urinating, Incentive Spirometry - Review of Systems General: Reports: No Symptoms HEENT: Reports: No Symptoms Pulmonary: Reports: Cough, Sputum Cardiovascular: Reports: No Symptoms Gastrointestinal: Reports: Constipation Genitourinary: Reports: No Symptoms Musculoskeletal: Reports: Back Pain Skin: Reports: No Symptoms Neurological: Reports: No Symptoms Psychiatric: Reports: No Symptoms - Patient Data Vitals - Most Recent: Last Vital Signs Temp 97.9 F 07/23/20 05:47 Pulse 75 07/23/20 05:47 Resp 18 07/23/20 05:47 BP 174/105 H 07/23/20 05:47 Pulse Ox 94 L 07/23/20 08:00 Weight - Most Recent: 195 lb I&O - Last 24 Hours: Intake & Output 07/22/20 07/23/20 07/23/20 22:59 06:59 14:59 Intake Total 120 Output Total 550 650 Balance -430 -650 Lab Results Last 24 Hours: Laboratory Results - last 24 hr 07/22/20 07/22/20 07/23/20 Range/Units 07:43 07:43 06:18 WBC 13.5 H 10.5 H (4.0-10.0) x10^3/uL RBC 3.85 L 3.87 L (4.00-5.50) x10^6/uL Hgb 8.2 L 8.3 L (12.0-16.0) g/dL Hct 29.0 L 29.4 L (33.0-47.0) % MCV 75.3 L 76.0 L (78.0-93.0) fL MCH 21.3 L 21.4 L (26.0-32.0) pg MCHC 28.3 L 28.2 L (32.0-36.0) g/dL RDW Coeff of Grace 23.8 H 24.1 H (10.0-15.0) % Plt Count 278 276 (130-400) x10^3/uL Neut % (Auto) 78.7 71.6 (50.0-80.0) % Lymph % (Auto) 12.7 L 22.0 L (25.0-50.0) % [place] % (Auto) 8.4 6.0 (2.0-11.0) % Eos % (Auto) 0.1 0.3 (0.0-4.0) % Baso % (Auto) 0.1 L 0.1 L (0.2-1.2) % Sodium 142 (136-145) mmol/L Potassium 4.0 (3.5-5.1) mmol/L Chloride 104 (98-107) mmol/L Carbon Dioxide 29 (21-32) mmol/L Anion Gap 13.0 (5-15) mmol/L BUN 9 (7-18) mg/dL Creatinine 0.7 (0.55-1.02) mg/dL Est Cr Clr Drug Dosing 79.34 mL/min Estimated GFR (MDRD) > 60 Glucose 90 (74-106) mg/dL Calcium 8.5 (8.5-10.1) mg/dL Corrected Calcium 9.38 (8.5-10.1) mg/dL Total Bilirubin 0.2 (0.2-1.0) mg/dL AST 20 (15-37) U/L ALT 21 (14-59) U/L Alkaline Phosphatase 82 (46-116) U/L Total Protein 6.6 (6.4-8.2) g/dL Albumin 2.9 L (3.4-5.0) g/dL Globulin 3.7 Albumin/Globulin Ratio 0.78 /15/ Range/Units 06:18 WBC (4.0-10.0) x10^3/uL RBC (4.00-5.50) x10^6/uL Hgb (12.0-16.0) g/dL Hct (33.0-47.0) % MCV (78.0-93.0) fL MCH (26.0-32.0) pg MCHC (32.0-36.0) g/dL RDW Coeff of Grace (10.0-15.0) % Plt Count (130-400) x10^3/uL Neut % (Auto) (50.0-80.0) % Lymph % (Auto) (25.0-50.0) % [place] % (Auto) (2.0-11.0) % Eos % (Auto) (0.0-4.0) % Baso % (Auto) (0.2-1.2) % Sodium 140 (136-145) mmol/L Potassium 4.0 (3.5-5.1) mmol/L Chloride 102 (98-107) mmol/L Carbon Dioxide 31 (21-32) mmol/L Anion Gap 11.0 (5-15) mmol/L BUN 7 (7-18) mg/dL Creatinine 0.7 (0.55-1.02) mg/dL Est Cr Clr Drug Dosing 79.34 mL/min Estimated GFR (MDRD) > 60 Glucose 118 H (74-106) mg/dL Calcium 8.4 L (8.5-10.1) mg/dL Corrected Calcium (8.5-10.1) mg/dL Total Bilirubin (0.2-1.0) mg/dL AST (15-37) U/L ALT (14-59) U/L Alkaline Phosphatase (46-116) U/L Total Protein (6.4-8.2) g/dL Albumin (3.4-5.0) g/dL Globulin Albumin/Globulin Ratio [place]rahan Results Last 24 Hours: Microbiology 07/20/20 10:18 Aerobic Blood Culture - Preliminary Blood - Venous NO GROWTH AFTER 2 DAYS Anaerobic Blood Culture - Preliminary NO GROWTH AFTER 2 DAYS 07/20/20 10:28 Aerobic Blood Culture - Preliminary Blood - Venous - Lab Draw NO GROWTH AFTER 2 DAYS Anaerobic Blood Culture - Preliminary NO GROWTH AFTER 2 DAYS 07/20/20 10:45 Urine Culture - Final Urine, Voided MIXED ANDRZEJ DAY 2 Med Orders - Current: Current Medications Acetaminophen (Tylenol) 650 mg PO Q4H PRN PRN Reason: Pain (Mild 1-3)/fever Hydrocodone Bitart/Acetaminophen (Winona 325-5 Mg) 1 tab PO Q4H PRN PRN Reason: Pain (moderate 4-6) Last Admin: 07/23/20 06:06 Dose: 1 tab Documented by: Hydrocodone Bitart/Acetaminophen (Winona 325-10 Mg) 1 tab PO Q6H PRN PRN Reason: Pain Albuterol/Ipratropium (Duoneb 3.0-0.5 Mg/3 Ml) 3 ml NEB QIDRT [facility] Last Admin: 07/23/20 08:10 Dose: 3 ml Documented by: Albuterol/Ipratropium (Duoneb 3.0-0.5 Mg/3 Ml) 3 ml NEB Q4HRRT PRN PRN Reason: Shortness of Breath Alprazolam (Xanax) 1 mg PO TID PRN PRN Reason: Anxiety Last Admin: 07/23/20 08:22 Dose: 1 mg Documented by: Ceftriaxone Sodium (Rocephin) 1 gm IVPUSH DAILY [facility] Stop: 07/25/20 08:01 Last Admin: 07/23/20 08:12 Dose: 1 gm Documented by: Citalopram Hydrobromide (Celexa) 30 mg PO DAILY [facility] Last Admin: 07/23/20 08:10 Dose: 30 mg Documented by: Docusate Sodium (Colace) 100 mg PO BID PRN PRN Reason: Constipation Last Admin: 07/20/20 17:37 Dose: 100 mg Documented by: Fluticasone Propionate (Fluticasone Propionate) 0 ml NASBOTH BID [facility] Last Admin: 07/23/20 08:11 Dose: 1 inhalation Documented by: Heparin Sodium (Porcine) (Heparin Sodium) 5,000 units SUBCUT Q8H [facility] Azithromycin 500 mg/ Sodium (Chloride) 250 mls @ 250 mls/hr IV DAILY [facility] Stop: 07/25/20 08:01 Last Admin: 07/23/20 08:16 Dose: 250 mls/hr Documented by: Methylprednisolone Sodium Succinate (Solu-Medrol) 40 mg IVPUSH DAILY [facility] Last Admin: 07/23/20 08:10 Dose: 40 mg Documented by: Nicotine (Habitrol) 21 mg TRDERM DAILY [facility] Last Admin: 07/23/20 08:10 Dose: 21 mg Documented by: Omeprazole (Omeprazole) 20 mg PO BEDTIME [facility] Last Admin: 07/22/20 17:58 Dose: 20 mg Documented by: Ondansetron HCl (Zofran Odt) 4 mg PO Q6H PRN PRN Reason: nausea, able to take PO Polyethylene Glycol (Miralax) 17 gm PO BID [facility] Last Admin: 07/23/20 08:16 Dose: 17 gm Documented by: Sodium Chloride (Saline Flush) 10 ml FLUSH ASDIRECTED PRN PRN Reason: Keep Vein Open Last Admin: 07/21/20 16:10 Dose: 10 ml Documented by: Discontinued Medications Albuterol (Proventil Neb Soln) 2.5 mg NEB ONETIME ONE Stop: 07/20/20 10:52 Last Admin: 07/20/20 10:54 Dose: 2.5 mg Documented by: Albuterol/Ipratropium (Duoneb 3.0-0.5 Mg/3 Ml) 3 ml NEB ONETIME ONE Stop: 07/20/20 10:02 Last Admin: 07/20/20 10:15 Dose: 3 ml Documented by: Albuterol/Ipratropium (Duoneb 3.0-0.5 Mg/3 Ml) 3 ml NEB Q4HRRT [facility] Last Admin: 07/21/20 06:11 Dose: 3 ml Documented by: Alprazolam (Xanax) 1 mg PO TID PRN PRN Reason: Anxiety Budesonide (Pulmicort) 1 mg NEB ONETIME ONE Stop: 07/20/20 10:16 Last Admin: 07/20/20 10:28 Dose: 1 mg Documented by: Calcium Carbonate/Glycine (Tums Extra Strength) 750 mg PO Q2H PRN PRN Reason: Dyspepsia Ceftriaxone Sodium (Rocephin) 1 gm IVPUSH STAT ONE Stop: 07/20/20 09:58 Last Admin: 07/20/20 10:16 Dose: 1 gm Documented by: Heparin Sodium (Porcine) (Heparin Sodium) 5,000 units SUBCUT Q8H [facility] Last Admin: 07/23/20 08:04 Dose: Not Given Documented by: Hydromorphone HCl (Dilaudid) 0.25 mg IVPUSH Q2H PRN PRN Reason: Pain (severe 7-10) Last Admin: 07/22/20 14:50 Dose: 0.25 mg Documented by: Lactated Ringer's (Ringers, Lactated) 1,000 mls @ 999 mls/hr IV ONETIME ONE Stop: 07/20/20 10:57 Last Admin: 07/20/20 10:15 Dose: 999 mls/hr Documented by: Azithromycin 500 mg/ Sodium (Chloride) 250 mls @ 250 mls/hr IV STAT ONE Stop: 07/20/20 11:32 Last Admin: 07/20/20 11:26 Dose: 250 mls/hr Documented by: Magnesium Citrate (Citrate Of Magnesia) 296 ml PO ONETIME ONE Stop: 07/20/20 19:33 Last Admin: 07/20/20 19:44 Dose: 296 ml Documented by: Methylprednisolone Sodium Succinate (Solu-Medrol) 125 mg IVPUSH ONETIME ONE Stop: 07/20/20 10:15 Last Admin: 07/20/20 10:21 Dose: 125 mg Documented by: Methylprednisolone Sodium Succinate (Solu-Medrol) 125 mg IVPUSH ONETIME ONE Stop: 07/20/20 11:19 Last Admin: 07/20/20 11:26 Dose: 125 mg Documented by: Nicotine (Habitrol) 14 mg TRDERM DAILY [facility] Last Admin: 07/21/20 08:51 Dose: 14 mg Documented by: Nicotine (Habitrol) 14 mg TRDERM ONETIME ONE Stop: 07/22/20 19:16 Last Admin: 07/22/20 20:24 Dose: 14 mg Documented by: Omeprazole (Omeprazole) 20 mg PO BEDTIME [facility] Last Admin: 07/22/20 20:23 Dose: 20 mg Documented by: Sodium Biphosphate/Sodium Phosphate (Fleet Enema) 133 ml RECTAL ONETIME ONE Stop: 07/20/20 13:29 Last Admin: 07/21/20 02:25 Dose: 1 bottle Documented by: - Exam Quality Assessment: Supplemental Oxygen (1L overnight) General: Alert, Oriented HEENT: Mucous Membr. Moist/[place] Lungs: Normal Respiratory Effort, Rales (bilateral bases, R>L) Cardiovascular: Regular Rate, Regular Rhythm GI/Abdominal Exam: Normal Bowel Sounds, Soft, Non-Tender Extremities: Normal Inspection, Non-Tender, No Pedal Edema Skin: Warm, Dry Neurological: No New Focal Deficit Psy/Mental Status: Alert, Normal Affect, Normal Mood Sepsis Event Note - Evaluation Sepsis Screening Result: No Definite Risk - Focused Exam Vital Signs: Vital Signs Temp Pulse Resp BP Pulse Ox Pulse Ox 07/23/20 08:00 94 L 07/23/20 06:00 97 07/23/20 05:47 97.9 F 75 18 174/105 H 94 L 07/23/20 02:00 97.3 F 71 18 153/100 H 94 L 07/22/20 22:00 98.1 F 89 20 139/78 95 - Problem List & Annotations (1) Hypoxemia SNOMED Code(s): 660710084 Code(s): R09.02 - HYPOXEMIA Status: Acute Current Visit: Yes (2) COPD exacerbation SNOMED Code(s): 529715369 Code(s): J44.1 - CHRONIC OBSTRUCTIVE PULMONARY DISEASE W (ACUTE) EXACERBATION Status: Acute Current Visit: Yes (3) Lumbar compression fracture SNOMED Code(s): 268834633 Code(s): S32.000A - WEDGE COMPRESSION FRACTURE OF UNSP LUMBAR VERTEBRA, INIT Status: Acute Current Visit: Yes Qualifiers: Encounter type: initial encounter Lumbar vertebra fracture level: L4 Qualified Code(s): S32.040A - Wedge compression fracture of fourth lumbar vertebra, initial encounter for closed fracture (4) Anemia SNOMED Code(s): 024880357 Code(s): D64.9 - ANEMIA, UNSPECIFIED Status: Acute Current Visit: Yes Qualifiers: Anemia type: unspecified type Qualified Code(s): D64.9 - Anemia, unspecified (5) UTI (urinary tract infection) SNOMED Code(s): 59955957 Code(s): N39.0 - URINARY TRACT INFECTION, SITE NOT SPECIFIED Status: Acute Current Visit: Yes Qualifiers: Urinary tract infection type: acute cystitis Hematuria presence: without hematuria Qualified Code(s): N30.00 - Acute cystitis without hematuria (6) Anxiety SNOMED Code(s): 81251715 Code(s): F41.9 - ANXIETY DISORDER, UNSPECIFIED Status: Acute Current Visit: No (7) Gastroesophageal reflux disease SNOMED Code(s): 858499620 Code(s): K21.9 - GASTRO-ESOPHAGEAL REFLUX DISEASE WITHOUT ESOPHAGITIS Status: Chronic Current Visit: No - Problem List Review Problem List Initiated/Reviewed/Updated: Yes - My Orders Last 24 Hours: My Active Orders 07/22/20 17:11 Omeprazole 20 mg PO BEDTIME 07/23/20 08:30 Overnight Pulse Oximetry [Overnight Pulse Oximetry] [RC] Click to Edit 07/23/20 08:31 Acetaminophen/HYDROcodone [Winona 325-10 MG] 1 tab PO Q6H PRN 07/23/20 14:00 Heparin Sodium 5,000 units SUBCUT Q8H - Plan Plan:: Maricarmen is a 54yoF who is HD #4 for COPD exacerbation and acute hypoxic respiratory failure as well as encephalopathy likely 2/2 sedation from pain medication. COPD exacerbation Acute Hypoxic Respiratory Failure Leukocytosis -Respiratory status drastically improved over the weekend -Still requiring 1L overnight Plan: -Continue Rocephin and azithromycin (7 days of abx total planned) -Starting daily control med for COPD: AirDuo 113-14mcg BID -Methylprednisolone 60mg IV BID, minimum of 5 days of steroids (deescalate to prednisone 40mg/day when able) -RT consult -IS q2hwa -Will need PFTs as well as Sleep Study outpatient L4 compression fracture -Patient discharged from [place] on 07/19/20 for L4 compression fracture with brace, no surgery Plan: -Pain control: deescalating from IV medication for severe today: tylenol, norco 5, norco 10 -PT consult -Brace on unless lying completely flat Anemia -Hgb stable through the weekend Plan: -Monitor CBC daily Constipation -Likely opioid-induced Plan: -Continue stool softeners, miralax daily -Monitor -Zofran ordered for nausea prn Urinary tract infection - Resolved -3 days of abx completed Encephalopathy - Resolved - Patient mentation improved with treatment of COPD exacerbation as well as with stopping gabapentin and Oxy Chronic: COPD - patient was not on meds prior to admit, manage as above Tobacco use disorder (1/2ppd) - nicotine patch, 21mcg daily MDD/SUBHA - continue home citalopram and Xanax (PRN) GERD - omeprazole BID Diet: Regular DVT: SQ heparin, CBC daily to monitor CODE: FULL Disposition: Will plan to for PT to see patient today. Starting daily control med for COPD. RT to see tomorrow for interpretation of overnight O2 study. Tentatively planning for DC tomorrow.
[2020-07-23] MEDS: Acetaminophen/HYDROcodone 325-10 MG Tab PO PRN ×2 (10:04→16:11)
[2020-07-23] MEDS: Omeprazole 20 MG Cap.CR PO SCH (20:21)
[2020-07-24] MEDS: Heparin Sodium 5,000 Units/ML Vial SUBCUT SCH ×2 (00:44→05:42)
[2020-07-24] MEDS: Acetaminophen/HYDROcodone 325-10 MG Tab PO PRN ×2 (01:46→12:01)
[2020-07-24] MEDS: ALPRAZolam 0.5 MG Tab PO PRN ×2 (05:42→12:01)
[2020-07-24] MEDS: Albuterol/Ipratropium 3.0-0.5 MG/3 ML Neb Soln NEB SCH ×2 (07:12→10:47)
[2020-07-24] MEDS: Polyethylene Glycol 3350 Powder 17 GM Packet PO SCH (07:31)
[2020-07-24] MEDS: Nicotine 21 MG/24 Hr Patch TRDERM SCH (07:32)
[2020-07-24] MEDS: cefTRIAXone 1 GM Vial IVPUSH SCH (07:33)
[2020-07-24] MEDS: methylPREDNISolone Sodium Succinate 40 MG/1 ML SDV IVPUSH SCH (07:33)
[2020-07-24] MEDS: Citalopram 10 MG Tab PO SCH (07:34)
[2020-07-24] MEDS: Azithromycin 500 MG in Sodium Chloride 0.9% 250 ML IV SCH (07:34)
[2020-07-24] MEDS: Acetaminophen/HYDROcodone 325-5 MG Tab PO PRN (07:36)
[2020-07-24] MEDS: Fluticasone Propionate Nasal Spray 9.9 ML BOTTLE NASBOTH SCH (07:37)
[2020-07-24] MEDS: Sodium Chloride 0.9% 10 ML Syringe FLUSH PRN (07:40)
[2020-07-24 10:40] VITALS: BP 157/104; PULSE 87
--- NOTE | 2020-07-24 10:55 | PCM.DCSUM1 ---
Discharge Summary - Hospital Course Free Text/Narrative:: Maricarmen is a 54yoF who was admitted on 07/20/20 for COPD exacerbation and acute hypoxic respiratory failure. She was also noted to be encephalopathic at the time of admission (thought to be secondary to her pain control medications (recent L4 fracture): gabapentin and oxy IR). She also had a UTI. She was initiated on steroids, nebulizers, and antibiotics with drastic improvement of her respiratory status. Her mentation improved within 24 hours of holding the gabapentin and oxy. She did well with Calhan for pain control. Over the last 24 hours the patient has been very stable. She continues with a mild O2 demand of 1L. She has been improving on her IS every day. She had not been on any COPD control medications prior to admission. We will plan to send her home with AirDuo 1 puff BID for daily control as well as albuterol nebulizers. Neb morenam ent sent to [facility] in [place]. She will also go home on 1L O2 at rest and bed. Again, sent to [facility]. We will continue with a total of 1 week of antibiotics (augmentin for 2 more days; ending 07/26/20). No more steroids. Will prescribe Calhan for pain control of the back fracture. Will prescibe nicotine patches for tobacco cessation. She will continue the rest of her home medications. We will plan to see her in the clinic in 1 week for a recheck. Consideration at follow-up should be given to BP medication as this has been high on/off throughout her stay. We should also consider formal PFT's outpatient as well as a sleep study (daughter notes she snores). Will do an O2 eval in the clinic when I see her back to see if this can be DC'd. - Discharge Data Discharge Date: 07/24/20 Discharge Disposition: Home, Self-Care 01 Condition: Good - Referral to Home Health Primary Care Physician: Kesha Alfredo MD - Discharge Diagnosis/Problem(s) (1) Hypoxemia SNOMED Code(s): 810716005 ICD Code: R09.02 - HYPOXEMIA Status: Acute Current Visit: Yes (2) COPD exacerbation SNOMED Code(s): 258813810 ICD Code: J44.1 - CHRONIC OBSTRUCTIVE PULMONARY DISEASE W (ACUTE) EXACERBATION Status: Acute Current Visit: Yes (3) Lumbar compression fracture SNOMED Code(s): 100903860 ICD Code: S32.000A - WEDGE COMPRESSION FRACTURE OF UNSP LUMBAR VERTEBRA, INIT Status: Acute Current Visit: Yes Qualifiers: Encounter type: initial encounter Lumbar vertebra fracture level: L4 Qualified Code(s): S32.040A - Wedge compression fracture of fourth lumbar vertebra, initial encounter for closed fracture (4) Anemia SNOMED Code(s): 301462974 ICD Code: D64.9 - ANEMIA, UNSPECIFIED Status: Acute Current Visit: Yes Qualifiers: Anemia type: unspecified type Qualified Code(s): D64.9 - Anemia, unspecified (5) UTI (urinary tract infection) SNOMED Code(s): 70011615 ICD Code: N39.0 - URINARY TRACT INFECTION, SITE NOT SPECIFIED Status: Acute Current Visit: Yes Qualifiers: Urinary tract infection type: acute cystitis Hematuria presence: without hematuria Qualified Code(s): N30.00 - Acute cystitis without hematuria (6) Anxiety SNOMED Code(s): 31306317 ICD Code: F41.9 - ANXIETY DISORDER, UNSPECIFIED Status: Acute Current Visit: No (7) Gastroesophageal reflux disease SNOMED Code(s): 081557201 ICD Code: K21.9 - GASTRO-ESOPHAGEAL REFLUX DISEASE WITHOUT ESOPHAGITIS Status: Chronic Current Visit: No - Patient Summary/Data Consults: Consultations 07/20/20 13:25 Consult to Respiratory Therapy [Respiratory Care Assess and Treatment] [CONS] Routine PT Evaluation and Treatment [CONS] Routine - Discharge Plan *PRESCRIPTION DRUG MONITORING PROGRAM REVIEWED*: Not Applicable *COPY OF PRESCRIPTION DRUG MONITORING REPORT IN PATIENT ADAM: Not Applicable Prescriptions/Med Rec: Fluticasone Propion/Salmeterol [Airduo Digihaler 113-14 Mcg] 1 each IH BID #60 aer.pw.bas Amoxicillin/Clavulanate K [Augmentin 875-125 MG] 1 tab PO BID 2 Days tablet Albuterol/Ipratropium [DuoNeb 3.0-0.5 MG/3 ML] 3 ml NEB QID PRN #30 neb PRN Reason: Shortness Of Breath Nicotine [Habitrol] 21 mg TRDERM DAILY #30 patch Acetaminophen/HYDROcodone [Calhan 325-5 MG] 1 - 2 tab PO Q6H PRN #50 tablet PRN Reason: Pain Home Medications: Home Meds Citalopram [Citalopram HBr] 30 mg PO DAILY 05/29/19 [History] ALPRAZolam [Xanax] 1 mg PO TID PRN 07/20/20 [History] Acetaminophen [Tylenol] 650 mg PO Q6H 07/20/20 [History] Cyanocobalamin (Vitamin B-12) [Vitamin B-12] 250 mcg PO DAILY 07/20/20 [History] Fluticasone Propionate [Flonase] 1 spray NS BID 07/20/20 [History] Sennosides/Docusate Sodium [Docusate Sodium-Sennosides Tab] 2 each PO BID PRN 07/20/20 [History] polyethylene glycoL 3350 [Polyethylene Glycol 3350] 17 gm PO BID 07/20/20 [History] Acetaminophen/HYDROcodone [Calhan 325-5 MG] 1 - 2 tab PO Q6H PRN #50 tablet 07/24/20 [Rx] Albuterol/Ipratropium [DuoNeb 3.0-0.5 MG/3 ML] 3 ml NEB QID PRN #30 neb 07/24/20 [Rx] Amoxicillin/Clavulanate K [Augmentin 875-125 MG] 1 tab PO BID 2 Days tablet 07/24/20 [Rx] Fluticasone Propion/Salmeterol [Airduo Digihaler 113-14 Mcg] 1 each IH BID #60 aer.pw.bas 07/24/20 [Rx] Nicotine [Habitrol] 21 mg TRDERM DAILY #30 patch 07/24/20 [Rx] Omeprazole 20 mg PO BEDTIME cap.cr 07/24/20 [Rx] Forms: ED Department Discharge Referrals: Kesha Alfredo MD [Primary Care Provider] - - Discharge Summary/Plan Comment DC Time >30 min.: Yes Discharge Summary/Plan Comment: New Meds: Airduo: BID inhaler Duoneb: every 4-6hr prn for SOB Augmentin: BID doses on 07/25 and 07/26 then done Home O2 F/U in 1 week in the clinic: COPD medication adjustment, O2 needs, PFTs, Sleep study, BP - Patient Data Vitals - Most Recent: Last Vital Signs Temp 98.2 F 07/24/20 10:00 Pulse 87 07/24/20 10:00 Resp 19 07/24/20 10:00 BP 157/104 H 07/24/20 10:00 Pulse Ox 91 L 07/24/20 10:00 Weight - Most Recent: 195 lb I&O - Last 24 hours: Intake & Output 07/23/20 07/24/20 07/24/20 22:59 06:59 14:59 Intake Total 180 360 Output Total 400 500 Balance -220 -500 360 [facility] Results - Last 24 hrs: Microbiology 07/20/20 10:18 Aerobic Blood Culture - Preliminary Blood - Venous NO GROWTH AFTER 4 DAYS Anaerobic Blood Culture - Preliminary NO GROWTH AFTER 4 DAYS 07/20/20 10:28 Aerobic Blood Culture - Preliminary Blood - Venous - Lab Draw NO GROWTH AFTER 4 DAYS Anaerobic Blood Culture - Preliminary NO GROWTH AFTER 4 DAYS Med Orders - Current: Current Medications Acetaminophen (Tylenol) 650 mg PO Q4H PRN PRN Reason: Pain (Mild 1-3)/fever Hydrocodone Bitart/Acetaminophen (Calhan 325-5 Mg) 1 tab PO Q4H PRN PRN Reason: Pain (moderate 4-6) Last Admin: 07/24/20 07:36 Dose: 1 tab Documented by: Hydrocodone Bitart/Acetaminophen (Calhan 325-10 Mg) 1 tab PO Q6H PRN PRN Reason: Pain Last Admin: 07/24/20 01:46 Dose: 1 tab Documented by: Albuterol/Ipratropium (Duoneb 3.0-0.5 Mg/3 Ml) 3 ml NEB QIDRT [facility] Last Admin: 07/24/20 10:47 Dose: 3 ml Documented by: Albuterol/Ipratropium (Duoneb 3.0-0.5 Mg/3 Ml) 3 ml NEB Q4HRRT PRN PRN Reason: Shortness of Breath Alprazolam (Xanax) 1 mg PO TID PRN PRN Reason: Anxiety Last Admin: 07/24/20 05:42 Dose: 1 mg Documented by: Ceftriaxone Sodium (Rocephin) 1 gm IVPUSH DAILY [facility] Stop: 07/25/20 08:01 Last Admin: 07/24/20 07:33 Dose: 1 gm Documented by: Citalopram Hydrobromide (Celexa) 30 mg PO DAILY [facility] Last Admin: 07/24/20 07:34 Dose: 30 mg Documented by: Docusate Sodium (Colace) 100 mg PO BID PRN PRN Reason: Constipation Last Admin: 07/20/20 17:37 Dose: 100 mg Documented by: Fluticasone Propionate (Fluticasone Propionate) 0 ml NASBOTH BID [facility] Last Admin: 07/24/20 07:37 Dose: 1 inhalation Documented by: Heparin Sodium (Porcine) (Heparin Sodium) 5,000 units SUBCUT Q8H [facility] Last Admin: 07/24/20 05:42 Dose: 5,000 units Documented by: Azithromycin 500 mg/ Sodium (Chloride) 250 mls @ 250 mls/hr IV DAILY [facility] Stop: 07/25/20 08:01 Last Admin: 07/24/20 07:34 Dose: 250 mls/hr Documented by: Methylprednisolone Sodium Succinate (Solu-Medrol) 40 mg IVPUSH DAILY [facility] Last Admin: 07/24/20 07:33 Dose: 40 mg Documented by: Nicotine (Habitrol) 21 mg TRDERM DAILY [facility] Last Admin: 07/24/20 07:32 Dose: 21 mg Documented by: Omeprazole (Omeprazole) 20 mg PO BEDTIME [facility] Last Admin: 07/23/20 20:21 Dose: 20 mg Documented by: Ondansetron HCl (Zofran Odt) 4 mg PO Q6H PRN PRN Reason: nausea, able to take PO Polyethylene Glycol (Miralax) 17 gm PO BID [facility] Last Admin: 07/24/20 07:31 Dose: 17 gm Documented by: Sodium Chloride (Saline Flush) 10 ml FLUSH ASDIRECTED PRN PRN Reason: Keep Vein Open Last Admin: 07/24/20 07:40 Dose: 10 ml Documented by: Discontinued Medications Albuterol (Proventil Neb Soln) 2.5 mg NEB ONETIME ONE Stop: 07/20/20 10:52 Last Admin: 07/20/20 10:54 Dose: 2.5 mg Documented by: Albuterol/Ipratropium (Duoneb 3.0-0.5 Mg/3 Ml) 3 ml NEB ONETIME ONE Stop: 07/20/20 10:02 Last Admin: 07/20/20 10:15 Dose: 3 ml Documented by: Albuterol/Ipratropium (Duoneb 3.0-0.5 Mg/3 Ml) 3 ml NEB Q4HRRT [facility] Last Admin: 07/21/20 06:11 Dose: 3 ml Documented by: Alprazolam (Xanax) 1 mg PO TID PRN PRN Reason: Anxiety Budesonide (Pulmicort) 1 mg NEB ONETIME ONE Stop: 07/20/20 10:16 Last Admin: 07/20/20 10:28 Dose: 1 mg Documented by: Calcium Carbonate/Glycine (Tums Extra Strength) 750 mg PO Q2H PRN PRN Reason: Dyspepsia Ceftriaxone Sodium (Rocephin) 1 gm IVPUSH STAT ONE Stop: 07/20/20 09:58 Last Admin: 07/20/20 10:16 Dose: 1 gm Documented by: Heparin Sodium (Porcine) (Heparin Sodium) 5,000 units SUBCUT Q8H [facility] Last Admin: 07/23/20 08:04 Dose: Not Given Documented by: Hydromorphone HCl (Dilaudid) 0.25 mg IVPUSH Q2H PRN PRN Reason: Pain (severe 7-10) Last Admin: 07/22/20 14:50 Dose: 0.25 mg Documented by: Lactated Ringer's (Ringers, Lactated) 1,000 mls @ 999 mls/hr IV ONETIME ONE Stop: 07/20/20 10:57 Last Admin: 07/20/20 10:15 Dose: 999 mls/hr Documented by: Azithromycin 500 mg/ Sodium (Chloride) 250 mls @ 250 mls/hr IV STAT ONE Stop: 07/20/20 11:32 Last Admin: 07/20/20 11:26 Dose: 250 mls/hr Documented by: Magnesium Citrate (Citrate Of Magnesia) 296 ml PO ONETIME ONE Stop: 07/20/20 19:33 Last Admin: 07/20/20 19:44 Dose: 296 ml Documented by: Methylprednisolone Sodium Succinate (Solu-Medrol) 125 mg IVPUSH ONETIME ONE Stop: 07/20/20 10:15 Last Admin: 07/20/20 10:21 Dose: 125 mg Documented by: Methylprednisolone Sodium Succinate (Solu-Medrol) 125 mg IVPUSH ONETIME ONE Stop: 07/20/20 11:19 Last Admin: 07/20/20 11:26 Dose: 125 mg Documented by: Nicotine (Habitrol) 14 mg TRDERM DAILY [facility] Last Admin: 07/21/20 08:51 Dose: 14 mg Documented by: Nicotine (Habitrol) 14 mg TRDERM ONETIME ONE Stop: 07/22/20 19:16 Last Admin: 07/22/20 20:24 Dose: 14 mg Documented by: Omeprazole (Omeprazole) 20 mg PO BEDTIME [facility] Last Admin: 07/22/20 20:23 Dose: 20 mg Documented by: Sodium Biphosphate/Sodium Phosphate (Fleet Enema) 133 ml RECTAL ONETIME ONE Stop: 07/20/20 13:29 Last Admin: 07/21/20 02:25 Dose: 1 bottle Documented by: - Exam Quality Assessment: Reports: Supplemental Oxygen General: Reports: Alert, Oriented HEENT: Reports: EOMI, Mucous Membr. Moist/[place]: Reports: Supple Lungs: Reports: Clear to Auscultation, Normal Respiratory Effort Cardiovascular: Reports: Regular Rate, Regular Rhythm GI/Abdominal Exam: Normal Bowel Sounds, Soft, Non-Tender Extremities: Normal Inspection, Non-Tender, No Pedal Edema Skin: Reports: Warm, Dry Neurological: Reports: No New Focal Deficit Psy/Mental Status: Reports: Alert, Normal Affect, Normal Mood
== END 2020-07-24 12:46 | disposition home or self-care (01) | DRG 189 ==
LOC: VM.ED 09:41 → VM.MS 11:10
PROVIDERS: ADMIT Family Medicine; ATTEND Family Medicine
DX: J96.01 Acute respiratory failure with hypoxia (principal); R09.02 Hypoxemia; S32.040A Wedge compression fracture of fourth lumbar vertebra, initial encounter for closed fracture; G92 Toxic encephalopathy; J44.1 Chronic obstructive pulmonary disease with (acute) exacerbation; N30.00 Acute cystitis without hematuria; F41.9 Anxiety disorder, unspecified; Z91.81 History of falling; D64.9 Anemia, unspecified; K21.9 Gastro-esophageal reflux disease without esophagitis; Z20.822 Contact with and (suspected) exposure to COVID-19; F32.9 Major depressive disorder, single episode, unspecified; F17.210 Nicotine dependence, cigarettes, uncomplicated; K59.03 Drug induced constipation; F41.1 Generalized anxiety disorder; Z79.899 Other long term (current) drug therapy; Z88.8 Allergy status to other drugs, medicaments and biological substances; Z90.49 Acquired absence of other specified parts of digestive tract; S32.000D Wedge compression fracture of unspecified lumbar vertebra, subsequent encounter for fracture with routine healing; T42.6X5A Adverse effect of other antiepileptic and sedative-hypnotic drugs, initial encounter; T40.2X5A Adverse effect of other opioids, initial encounter; Z20.828 Contact with and (suspected) exposure to other viral communicable diseases
CPT/HCPCS: 36415; 71045; 80048; 80053; 81001; 82803; 83605; 83880; 84484; 85025; 86140; 87040; 87086; 93005; 94640; 94760; 96374; 96375; 97116-GP; 97161-GP; 99284; 99285-25; A9270-GY; J0456; J0696; J1170; J1644; J2920; J2930; J7050; J7120; J7613-GY; J7620-GY; U0002

== ENCOUNTER 2021-03-10 20:24 | Inpatient (IN) | payer MEDICAID ==
[2021-03-10] MEDS ORDERED: Sodium Chloride 0.9% 10 ML Syringe FLUSH PRN (20:42)
[2021-03-10] MEDS ORDERED: Sodium Chloride 0.9% 1,000 ML IV SCH ×2 (20:45→22:30)
[2021-03-10 21:25] LABS: BARBITURATE SCREEN,URINE NEGATIVE (NEGATIVE)
[2021-03-10 21:26] LABS: BENZODIAZEPINES SCREEN,URINE POSITIVE (NEGATIVE); BUPRENORPHINE SCREEN,URINE NEGATIVE (NEGATIVE); METHAMPHETAMINE SCREEN, URINE NEGATIVE (NEGATIVE); THC SCREEN,URINE 50 NG/ML NEGATIVE (NEGATIVE)
[2021-03-10 21:42] LABS: ANION GAP 19.6 mmol/L (5-15); CHLORIDE,CL 103 mmol/L (98-107); SODIUM,NA 140 mmol/L (136-145)
--- NOTE | 2021-03-10 21:54 | EDM.PDOC ---
ED HPI GENERAL MEDICAL PROBLEM - General Chief Complaint: General Stated Complaint: Falling, intoxication Source of Information: Reports: Patient, EMS - History of Present Illness INITIAL COMMENTS - FREE TEXT/NARRATIVE: Pt. presents to ER via EMS. Pt. states that she had "2 sips" of ETOH today and was weak and confused, unable to ambulate at home. She did fall, striking her head and face. She is also on xanax. She also has concerns about coronavirus. She states that she has had a cough, sore throat and an exposure to a pt. with coronavirus. She has had both Moderna vaccinations. Pt. states that today was the only day she has consumed ETOH recently. Adamantly denies consumption of alcohol on previous days. She states that the reason for drinking today is because "it was a bad day". She has several family members who are ill, including a grandson with coronavirus. She also is on a large dose of alprazolam (3mg TID) Pt. states that she did not have any LOC when she fell. Denied feeling weak, chest pain, shortness of breath, or lightheadedness prior to the fall. She is not experiencing any nausea, vomiting, or diarrhea. Denies any rashes. No bloody stools. Denies any numbness/tingling in extremities. Speech is slurred, is otherwise unchanged. Denies any vision loss. Onset: Today Onset Date: 03/10/21 lower lip Pain Score (Numeric/FACES): 2 - Related Data Allergies Allergy/AdvReac Type Severity Reaction Status Date / Time guaifenesin [From Mucinex] Allergy Intermediate Swollen Verified 03/10/21 22:18 Eyes cyclobenzaprine Allergy Hallucinati Verified 03/10/21 22:18 [From Flexeril] ons Home Meds: Home Meds Citalopram [Citalopram HBr] 30 mg PO DAILY 05/29/19 [History] ALPRAZolam [Xanax] 1 mg PO TID PRN 07/20/20 [History] Acetaminophen [Tylenol] 650 mg PO Q6H 07/20/20 [History] Cyanocobalamin (Vitamin B-12) [Vitamin B-12] 250 mcg PO DAILY 07/20/20 [History] Fluticasone Propionate [Flonase] 1 spray NS BID 07/20/20 [History] Sennosides/Docusate Sodium [Docusate Sodium-Sennosides Tab] 2 each PO BID PRN 07/20/20 [History] Omeprazole 20 mg PO BEDTIME cap.cr 07/24/20 [Rx] Albuterol/Ipratropium [DuoNeb 3.0-0.5 MG/3 ML] 1 inh INH QID PRN 03/10/21 [History] Fluticasone Propion/Salmeterol [Airduo Digihaler 113-14 Mcg] 1 puff INH BID 03/10/21 [History] Past Medical History - Past Health History Medical/Surgical History: Denies Medical/Surgical History Respiratory History: Reports: COPD Gastrointestinal History: Reports: Chronic Constipation, GERD CAR USHER History: Reports: Other CAR USHER History: 2 children Psychiatric History: Reports: Anxiety, Depression Other Psychiatric History: History of anxiety. - Infectious Disease History Infectious Disease History: Reports: Other (See Below) Other Infectious Disease History: Covid-19 - Past Surgical History HEENT Surgical History: Reports: Other (See Below) Other HEENT Surgeries/Procedures: [place] teeth removed GI Surgical History: Reports: Appendectomy Social & Family History - Family History Family Medical History: No Pertinent Family History - Caffeine Use Caffeine Use: Reports: Soda ED ROS GENERAL - Review of Systems Review Of Systems: See Below Constitutional: Reports: Weakness, Fatigue HEENT: Reports: Throat Pain, Other (struck mouth/head when she fell) Respiratory: Reports: Cough Cardiovascular: Reports: No Symptoms Endocrine: Reports: No Symptoms GI/Abdominal: Reports: No Symptoms : Reports: No Symptoms Musculoskeletal: Reports: No Symptoms Skin: Reports: No Symptoms Neurological: Reports: No Symptoms Psychiatric: Reports: No Symptoms Hematologic/Lymphatic: Reports: No Symptoms Immunologic: Reports: No Symptoms ED EXAM, GENERAL - Physical Exam Exam: See Below Exam Limited By: No Limitations General Appearance: Alert, WD/WN, No Apparent Distress Eye Exam: Bilateral Eye: EOMI, PERRL Ears: Normal External Exam Ear Exam: Bilateral Ear: Auricle Normal, Other (cerumen in both canals) Nose: Normal Inspection, Normal Mucosa, No Blood Throat/Mouth: Other (edema/hematoma to upper lip. No obvious malocclusion) Head: Other (Contusion R forhead area) Neck: Normal Inspection, Supple, Non-Tender, Full Range of Motion Respiratory/Chest: No Respiratory Distress, No Accessory Muscle Use, Chest Non- Tender, Decreased Breath Sounds. No: Respiratory Distress Cardiovascular: Normal Peripheral Pulses, Regular Rate, Rhythm, No Edema, No Gallop, No JVD, No Murmur Peripheral Pulses: 4+: Radial (L) GI/Abdominal: Soft, Non-Tender, No Organomegaly, No Distention, No Mass (Female) Exam: Deferred Rectal (Female) Exam: Deferred Back Exam: Normal Inspection, Full Range of Motion Extremities: Normal Inspection, Normal Range of Motion, Non-Tender, No Pedal Edema, Normal Capillary Refill Neurological: Slow to Respond, Other (speech slurred) Psychiatric: Normal Affect, Normal Mood Skin Exam: Warm, Dry, Intact, Normal Color, No Rash Lymphatic: No Adenopathy #1 Interpretation Rhythm: NSR [place]: Normal P-Wave: Present QRS: Normal ST-T: Normal QT: Normal Course - Vital Signs Last Recorded V/S: Last Vital Signs Temp 36.7 C 03/10/21 21:23 Pulse 108 H 03/10/21 21:23 Resp 16 03/10/21 21:23 BP 113/82 03/10/21 21:23 Pulse Ox 96 03/10/21 21:23 - Orders/Labs/Meds Orders: Active Orders 24 hr Category Date Time Status EKG Documentation Completion [RC] STAT Care 03/10/21 20:43 Active Chest 2V [CR] Stat Exams 03/10/21 21:42 Ordered Head wo Cont [CT] Stat Exams 03/10/21 20:47 Ordered CULTURE BLOOD [BC] Stat Lab 03/10/21 21:02 Received CULTURE BLOOD [BC] Stat Lab 03/10/21 21:09 Received REFLEX LACTIC ACID YES OR NO [CHEM] Routine Lab 03/10/21 21:38 Received Sodium Chloride 0.9% [Normal Saline] 1,000 ml Med 03/10/21 20:45 Active IV ASDIRECTED Sodium Chloride 0.9% [Saline Flush] Med 03/10/21 20:42 Active 10 ml FLUSH ASDIRECTED PRN Blood Culture x2 Reflex Set [OM.PC] Stat Oth 03/10/21 20:44 Ordered Peripheral IV Insertion Adult [OM.PC] Routine Oth 03/10/21 20:43 Ordered Medication Orders Acetaminophen (Acetaminophen 325 Mg Tab) 650 mg PO Q6H [facility] Cyanocobalamin (Cyanocobalamin (Vitamin B12) 250 Mcg Tab) 250 mcg PO DAILY [facility] Diazepam (Diazepam 10 Mg/2 Ml Syringe) 5 mg IV Q1H PRN PRN Reason: Agitation Haloperidol Lactate (Haloperidol Lactate 5 Mg/Ml Sdv) 5 mg IV Q1H PRN PRN Reason: Agitation Sodium Chloride (Normal Saline) 1,000 mls @ 1,000 mls/hr IV ASDIRECTED [facility] Multivitamins/Minerals 10 ml/Folic Acid 1 mg/ Thiamine HCl 100 mg/ Sodium Chloride 1,011.2 mls @ 150 mls/hr IV Q24H SOFIYA Stop: 03/13/21 05:00 Sodium Chloride (Normal Saline) 1,000 mls @ 125 mls/hr IV ASDIRECTED [facility] Non-Formulary Medication (Fluticasone Propionate [Flonase]) 1 spray NS BID [facility] Ondansetron HCl (Ondansetron 4 Mg/2 Ml Sdv) 4 mg IVPUSH Q4H PRN PRN Reason: Nausea Pantoprazole Sodium (Pantoprazole 40 Mg Vial) 40 mg IV DAILY [facility] Senna/Docusate Sodium (Docusate Sodium/Sennosides 50-8.6 Mg Tab) tab PO BID PRN PRN Reason: Constipation Sodium Chloride (Sodium Chloride 0.9% 10 Ml Syringe) 10 ml FLUSH ASDIRECTED PRN PRN Reason: Keep Vein Open Labs: Laboratory Tests 03/10/21 03/10/21 03/10/21 Range/Units 20:40 20:50 20:50 WBC (4.0-10.0) x10^3/uL RBC (4.00-5.50) x10^6/uL Hgb (12.0-16.0) g/dL Hct (33.0-47.0) % MCV (78.0-93.0) fL MCH (26.0-32.0) pg MCHC (32.0-36.0) g/dL RDW Coeff of Grace (10.0-15.0) % Plt Count (130-400) x10^3/uL Immature Gran % (Auto) (0.00-0.43) % Neut % (Auto) (50.0-80.0) % Lymph % (Auto) (25.0-50.0) % [place] % (Auto) (2.0-11.0) % Eos % (Auto) (0.0-4.0) % Baso % (Auto) (0.2-1.2) % Neut # (Auto) (1.8-7.7) x10^3/uL Lymph # (Auto) (1.0-4.8) x10^3/uL [place] # (Auto) (0.0-0.8) x10^3/uL Eos # (Auto) (0.0-0.5) x10^3/uL Baso # (Auto) (0.0-0.2) x10^3/uL Immature Gran # (Auto) (0.00-0.07) x10^3/uL PT (9.9-12.5) SEC INR (2.0-3.5) APTT (25.6-32.8) SEC Sodium (136-145) mmol/L Potassium (3.5-5.1) mmol/L Chloride (98-107) mmol/L Carbon Dioxide (21-32) mmol/L Anion Gap (5-15) mmol/L BUN (7-18) mg/dL Creatinine (0.55-1.02) mg/dL Est Cr Clr Drug Dosing Estimated GFR (MDRD) Glucose (70-99) mg/dL Lactic Acid (0.4-2.0) mmol/L Calcium (8.5-10.1) mg/dL Corrected Calcium (8.5-10.1) mg/dL Phosphorus (2.6-4.7) mg/dL Magnesium (1.8-2.4) mg/dL Total Bilirubin (0.2-1.0) mg/dL AST (15-37) U/L ALT (14-59) U/L Alkaline Phosphatase (46-116) U/L Lactate Dehydrogenase (81-234) U/L Troponin I High Sens (<=51) ng/L C-Reactive Protein (<=0.9) mg/dL NT-Pro-B Natriuret Pep (<=125) pg/mL Total Protein (6.4-8.2) g/dL Albumin (3.4-5.0) g/dL Globulin Albumin/Globulin Ratio Procalcitonin (0.1-0.50) ng/mL TSH, Ultra Sensitive (0.358-3.74) uIU/mL Urine Color Yellow (YELLOW) Urine Appearance Clear (CLEAR) Urine pH 6.0 (5.0-8.0) Ur Specific [place] 1.010 Urine Protein Negative (NEGATIVE) mg/dL Urine Glucose (UA) Negative (NEGATIVE) mg/dL Urine Ketones Negative (NEGATIVE) mg/dL Urine Occult Blood Negative (NEGATIVE) Urine Nitrite Negative (NEGATIVE) Urine Bilirubin Negative (NEGATIVE) Urine Urobilinogen 0.2 (0.2) EU/dL Ur Leukocyte Esterase Negative (NEGATIVE) Urine Opiates Screen Negative (NEGATIVE) Ur Buprenorphine Scrn Negative (NEGATIVE) Ur Oxycodone Screen Negative (NEGATIVE) Urine Methadone Screen Negative (NEGATIVE) Ur Barbiturates Screen Negative (NEGATIVE) Ur Phencyclidine Scrn Negative (NEGATIVE) Ur Amphetamine Screen Negative (NEGATIVE) U Methamphetamines Scrn Negative (NEGATIVE) Urine MDMA Screen Negative (NEGATIVE) U Benzodiazepines Scrn Positive H (NEGATIVE) U Cocaine Metab Screen Negative (NEGATIVE) U Marijuana (THC) Screen Negative (NEGATIVE) Ethyl Alcohol (0-3) mg/dL SARS CoV-2 RNA Rapid PAMELA Negative (NEGATIVE) 03/10/21 03/10/21 03/10/21 Range/Units 21:02 21:02 21:02 WBC 8.0 (4.0-10.0) x10^3/uL RBC 4.64 (4.00-5.50) x10^6/uL Hgb 11.4 L (12.0-16.0) g/dL Hct 35.5 (33.0-47.0) % MCV 76.5 L (78.0-93.0) fL MCH 24.6 L (26.0-32.0) pg MCHC 32.1 (32.0-36.0) g/dL RDW Coeff of Grace 17.7 H (10.0-15.0) % Plt Count 252 (130-400) x10^3/uL Immature Gran % (Auto) 0.10 (0.00-0.43) % Neut % (Auto) 70.8 (50.0-80.0) % Lymph % (Auto) 18.2 L (25.0-50.0) % [place] % (Auto) 7.9 (2.0-11.0) % Eos % (Auto) 2.0 (0.0-4.0) % Baso % (Auto) 1.0 (0.2-1.2) % Neut # (Auto) 5.7 (1.8-7.7) x10^3/uL Lymph # (Auto) 1.5 (1.0-4.8) x10^3/uL [place] # (Auto) 0.6 (0.0-0.8) x10^3/uL Eos # (Auto) 0.2 (0.0-0.5) x10^3/uL Baso # (Auto) 0.1 (0.0-0.2) x10^3/uL Immature Gran # (Auto) 0.01 (0.00-0.07) x10^3/uL PT 9.9 (9.9-12.5) SEC INR 0.9 L (2.0-3.5) APTT (25.6-32.8) SEC Sodium 140 (136-145) mmol/L Potassium 3.6 (3.5-5.1) mmol/L Chloride 103 (98-107) mmol/L Carbon Dioxide 21 D (21-32) mmol/L Anion Gap 19.6 H (5-15) mmol/L BUN 10 (7-18) mg/dL Creatinine 0.9 (0.55-1.02) mg/dL Est Cr Clr Drug Dosing TNP Estimated GFR (MDRD) > 60 Glucose 120 H (70-99) mg/dL Lactic Acid (0.4-2.0) mmol/L Calcium 8.2 L (8.5-10.1) mg/dL Corrected Calcium 8.8 (8.5-10.1) mg/dL Phosphorus 3.9 (2.6-4.7) mg/dL Magnesium 2.0 (1.8-2.4) mg/dL Total Bilirubin 0.2 (0.2-1.0) mg/dL AST 15 (15-37) U/L ALT 20 (14-59) U/L Alkaline Phosphatase 79 (46-116) U/L Lactate Dehydrogenase 124 (81-234) U/L Troponin I High Sens 4 (<=51) ng/L C-Reactive Protein 3.4 H (<=0.9) mg/dL NT-Pro-B Natriuret Pep 96 (<=125) pg/mL Total Protein 7.4 (6.4-8.2) g/dL Albumin 3.3 L (3.4-5.0) g/dL Globulin 4.1 Albumin/Globulin Ratio 0.80 Procalcitonin (0.1-0.50) ng/mL TSH, Ultra Sensitive 0.821 (0.358-3.74) uIU/mL Urine Color (YELLOW) Urine Appearance (CLEAR) Urine pH (5.0-8.0) Ur Specific [place] Urine Protein (NEGATIVE) mg/dL Urine Glucose (UA) (NEGATIVE) mg/dL Urine Ketones (NEGATIVE) mg/dL Urine Occult Blood (NEGATIVE) Urine Nitrite (NEGATIVE) Urine Bilirubin (NEGATIVE) Urine Urobilinogen (0.2) EU/dL Ur Leukocyte Esterase (NEGATIVE) Urine Opiates Screen (NEGATIVE) Ur Buprenorphine Scrn (NEGATIVE) Ur Oxycodone Screen (NEGATIVE) Urine Methadone Screen (NEGATIVE) Ur Barbiturates Screen (NEGATIVE) Ur Phencyclidine Scrn (NEGATIVE) Ur Amphetamine Screen (NEGATIVE) U Methamphetamines Scrn (NEGATIVE) Urine MDMA Screen (NEGATIVE) U Benzodiazepines Scrn (NEGATIVE) U Cocaine Metab Screen (NEGATIVE) U Marijuana (THC) Screen (NEGATIVE) Ethyl Alcohol 159 H (0-3) mg/dL SARS CoV-2 RNA Rapid PAMELA (NEGATIVE) 03/10/21 03/10/21 03/10/21 Range/Units 21:02 21:02 21:02 WBC (4.0-10.0) x10^3/uL RBC (4.00-5.50) x10^6/uL Hgb (12.0-16.0) g/dL Hct (33.0-47.0) % MCV (78.0-93.0) fL MCH (26.0-32.0) pg MCHC (32.0-36.0) g/dL RDW Coeff of Grace (10.0-15.0) % Plt Count (130-400) x10^3/uL Immature Gran % (Auto) (0.00-0.43) % Neut % (Auto) (50.0-80.0) % Lymph % (Auto) (25.0-50.0) % [place] % (Auto) (2.0-11.0) % Eos % (Auto) (0.0-4.0) % Baso % (Auto) (0.2-1.2) % Neut # (Auto) (1.8-7.7) x10^3/uL Lymph # (Auto) (1.0-4.8) x10^3/uL [place] # (Auto) (0.0-0.8) x10^3/uL Eos # (Auto) (0.0-0.5) x10^3/uL Baso # (Auto) (0.0-0.2) x10^3/uL Immature Gran # (Auto) (0.00-0.07) x10^3/uL PT (9.9-12.5) SEC INR (2.0-3.5) APTT 22.7 L (25.6-32.8) SEC Sodium (136-145) mmol/L Potassium (3.5-5.1) mmol/L Chloride (98-107) mmol/L Carbon Dioxide (21-32) mmol/L Anion Gap (5-15) mmol/L BUN (7-18) mg/dL Creatinine (0.55-1.02) mg/dL Est Cr Clr Drug Dosing Estimated GFR (MDRD) Glucose (70-99) mg/dL Lactic Acid 4.1 H* (0.4-2.0) mmol/L Calcium (8.5-10.1) mg/dL Corrected Calcium (8.5-10.1) mg/dL Phosphorus (2.6-4.7) mg/dL Magnesium (1.8-2.4) mg/dL Total Bilirubin (0.2-1.0) mg/dL AST (15-37) U/L ALT (14-59) U/L Alkaline Phosphatase (46-116) U/L Lactate Dehydrogenase (81-234) U/L Troponin I High Sens (<=51) ng/L C-Reactive Protein (<=0.9) mg/dL NT-Pro-B Natriuret Pep (<=125) pg/mL Total Protein (6.4-8.2) g/dL Albumin (3.4-5.0) g/dL Globulin Albumin/Globulin Ratio Procalcitonin < 0.05 L (0.1-0.50) ng/mL TSH, Ultra Sensitive (0.358-3.74) uIU/mL Urine Color (YELLOW) Urine Appearance (CLEAR) Urine pH (5.0-8.0) Ur Specific [place] Urine Protein (NEGATIVE) mg/dL Urine Glucose (UA) (NEGATIVE) mg/dL Urine Ketones (NEGATIVE) mg/dL Urine Occult Blood (NEGATIVE) Urine Nitrite (NEGATIVE) Urine Bilirubin (NEGATIVE) Urine Urobilinogen (0.2) EU/dL Ur Leukocyte Esterase (NEGATIVE) Urine Opiates Screen (NEGATIVE) Ur Buprenorphine Scrn (NEGATIVE) Ur Oxycodone Screen (NEGATIVE) Urine Methadone Screen (NEGATIVE) Ur Barbiturates Screen (NEGATIVE) Ur Phencyclidine Scrn (NEGATIVE) Ur Amphetamine Screen (NEGATIVE) U Methamphetamines Scrn (NEGATIVE) Urine MDMA Screen (NEGATIVE) U Benzodiazepines Scrn (NEGATIVE) U Cocaine Metab Screen (NEGATIVE) U Marijuana (THC) Screen (NEGATIVE) Ethyl Alcohol (0-3) mg/dL SARS CoV-2 RNA Rapid PAMELA (NEGATIVE) Meds: Medications Generic Name Dose Route Start Last Admin Trade Name Freq PRN Reason Stop Dose Admin Acetaminophen 650 mg 03/10/21 22:30 Acetaminophen 325 Mg Tab PO Q6H [facility] Cyanocobalamin 250 mcg 03/11/21 08:00 Cyanocobalamin (Vitamin B12) 250 Mcg Tab PO DAILY [facility] Diazepam 5 mg 03/10/21 22:15 Diazepam 10 Mg/2 Ml Syringe IV Q1H PRN Agitation Haloperidol Lactate 5 mg 03/10/21 22:21 Haloperidol Lactate 5 Mg/Ml Sdv IV Q1H PRN Agitation Sodium Chloride 1,000 mls @ 1,000 mls/hr 03/10/21 20:45 Normal Saline IV ASDIRECTED [facility] Multivitamins/Minerals 10 ml/ 1,011.2 mls @ 150 mls/hr 03/10/21 22:15 Folic Acid 1 mg/ Thiamine HCl IV 03/13/21 05:00 100 mg/ Sodium Chloride Q24H SOFI[facility] Sodium Chloride 1,000 mls @ 125 mls/hr 03/10/21 22:30 Normal Saline IV ASDIRECTED [facility] Non-Formulary Medication 1 spray 03/11/21 08:00 Fluticasone Propionate [Flonase] NS BID [facility] Ondansetron HCl 4 mg 03/10/21 22:15 Ondansetron 4 Mg/2 Ml Sdv IVPUSH Q4H PRN Nausea Pantoprazole Sodium 40 mg 03/10/21 22:30 Pantoprazole 40 Mg Vial IV DAILY [facility] Senna/Docusate Sodium tab 03/10/21 22:22 Docusate Sodium/Sennosides 50-8.6 Mg Tab PO BID PRN Constipation Sodium Chloride 10 ml 03/10/21 20:42 Sodium Chloride 0.9% 10 Ml Syringe FLUSH ASDIRECTED PRN Keep Vein Open Discontinued Medications Generic Name Dose Route Start Last Admin Trade Name Freq PRN Reason Stop Dose Admin Ceftriaxone Sodium 2 gm 03/10/21 22:13 Ceftriaxone 2 Gm Vial IVPUSH 03/10/21 22:14 STAT ONE Departure - Departure Time of Disposition: 22:27 Clinical Impression: Intoxication, Lactic acidosis, Dehydration - Discharge Information Sepsis Event Note (ED) - Focused Exam Vital Signs: Vital Signs Temp Pulse Resp BP Pulse Ox 03/10/21 21:23 36.7 C 108 H 16 113/82 96 - My Orders Last 24 Hours: My Active Orders 03/10/21 20:42 Sodium Chloride 0.9% [Saline Flush] 10 ml FLUSH ASDIRECTED PRN 03/10/21 20:43 EKG Documentation Completion [RC] STAT Peripheral IV Insertion Adult [OM.PC] Routine 03/10/21 20:44 Blood Culture x2 Reflex Set [OM.PC] Stat 03/10/21 20:45 Sodium Chloride 0.9% [Normal Saline] 1,000 ml IV ASDIRECTED 03/10/21 20:47 Head wo Cont [CT] Stat 03/10/21 21:02 CULTURE BLOOD [BC] Stat 03/10/21 21:09 CULTURE BLOOD [BC] Stat 03/10/21 21:38 REFLEX LACTIC ACID YES OR NO [CHEM] Routine 03/10/21 21:42 Chest 2V [CR] Stat - Assessment/Plan Last 24 Hours: My Active Orders 03/10/21 20:42 Sodium Chloride 0.9% [Saline Flush] 10 ml FLUSH ASDIRECTED PRN 03/10/21 20:43 EKG Documentation Completion [RC] STAT Peripheral IV Insertion Adult [OM.PC] Routine 03/10/21 20:44 Blood Culture x2 Reflex Set [OM.PC] Stat 03/10/21 20:45 Sodium Chloride 0.9% [Normal Saline] 1,000 ml IV ASDIRECTED 03/10/21 20:47 Head wo Cont [CT] Stat 03/10/21 21:02 CULTURE BLOOD [BC] Stat 03/10/21 21:09 CULTURE BLOOD [BC] Stat 03/10/21 21:38 REFLEX LACTIC ACID YES OR NO [CHEM] Routine 03/10/21 21:42 Chest 2V [CR] Stat
[2021-03-10] MEDS ORDERED: cefTRIAXone 2 GM Vial IVPUSH ONE (22:13)
[2021-03-10] MEDS ORDERED: Ondansetron 4 MG/2 ML SDV IVPUSH PRN (22:15)
[2021-03-10] MEDS ORDERED: MVI, Adult with Vitamin K 10 ML, Folic Acid 1 MG, Thiamine 100 MG in Sodium Chloride 0.... IV SCH ×4 (22:15)
[2021-03-10] MEDS ORDERED: Haloperidol Lactate 5 MG/ML SDV IV PRN (22:21)
[2021-03-11] MEDS: Pantoprazole 40 MG Vial IV SCH ×2 (00:03→08:52)
[2021-03-11] MEDS: Acetaminophen 325 MG Tab PO SCH ×3 (00:07→09:35)
[2021-03-11 06:36] VITALS: BP 106/65; PULSE 77
[2021-03-11 06:54] LABS: CHLORIDE,CL 108 mmol/L (98-107); SODIUM,NA 141 mmol/L (136-145)
[2021-03-11 07:05] LABS: ANION GAP 10.8 mmol/L (5-15)
[2021-03-11] MEDS ORDERED: Cyanocobalamin (Vitamin B12) 250 MCG Tab PO SCH (08:00)
[2021-03-11] MEDS ORDERED: Fluticasone Propionate Nasal Spray 9.9 ML BOTTLE NASBOTH SCH (08:00)
--- NOTE | 2021-03-11 08:05 | CT ---
[id number] CT/CT Head WO IV EXAM: CT Head WO IV CLINICAL DATA: FALL/ STRUCK HEAD/ ETOH COMPARISON STUDY: None FINDINGS: No intracranial hemorrhage, extra-axial fluid collection, mass, or acute ischemia. No hydrocephalus. Calvarium intact. Paranasal sinuses and mastoid air cells are clear. IMPRESSION: No acute intracranial findings. Jose Dill MD 03/11/21 0804 Thank you for allowing us to participate in the care of your patient.
--- NOTE | 2021-03-11 08:33 | CR ---
[id number] RAD/RAD Chest PA And Lateral EXAM: RAD Chest PA And Lateral INDICATION: COUGH/ ELEVATED LACTATE COMPARISON: None. DISCUSSION/IMPRESSION: Cardiomediastinal silhouette is normal in size and contour. Hazy opacification over the left lung base. This is nonspecific. There is slight obscuration of the left heart border. Findings could represent a prominent epicardial fat pad. Small layering pleural effusion is possible. Consider noncontrast chest CT for further evaluation if symptoms persist or worsen. Jose Dill MD 03/11/21 0831 Thank you for allowing us to participate in the care of your patient.
[2021-03-11] MEDS ORDERED: LORazepam 1 MG Tab PO PRN (09:21)
[2021-03-11] MEDS ORDERED: Multivitamins w-Iron/Ca/FA/Min 1 TAB, Thiamine 100 MG, Folic Acid 1 MG, Magnesium Oxide... PO SCH ×3 (09:30)
[2021-03-11] MEDS ORDERED: ALPRAZolam 0.5 MG Tab PO PRN (09:33)
[2021-03-11] MEDS ORDERED: Citalopram 10 MG Tab PO SCH (09:43)
--- NOTE | 2021-03-11 10:13 | DISCH ---
Discharge summary from the acute care floor at [facility]. ADMITTING DIAGNOSES: 1. Acute alcohol intoxication. 2. Lactic acidosis. 3. Closed head injury without loss of consciousness. 4. Fall. DISCHARGE DIAGNOSES: 1. Acute alcohol intoxication. 2. Closed head injury without loss of consciousness. 3. Lactic acidosis. 4. Fall. HISTORY OF PRESENT ILLNESS: A 55-year-old female patient was admitted to the acute care floor last evening through the emergency room for acute alcohol intoxication after she fell at home. The patient was brought to the emergency room via EMS. CT scan of the head did not show any acute pathology. Chest x- ray did not show any acute cardiopulmonary process. Laboratory study showed a lactic acidosis of 4.1 and a blood alcohol of 0.159. The patient has a history of chronic alcoholism. BRIEF HOSPITAL COURSE: CIWA was initiated. The patient was started on a banana bag. Appropriate medications were started. The patient remained hemodynamically stable. Afebrile. No issues with urination or bowel movements. Patient tolerated p.o. fluids and foods without any problems. The patient was given 2 g of IV Rocephin in the emergency room as the provider felt she had a starting of a pneumonia; however, chest x-ray did not reveal any consolidation or infiltrates. CONSULTATIONS: Case Management. DIET: Regular. ACTIVITY: As tolerated. DISCHARGE LABORATORY WORK: 1. CBC: White blood cell count 5.5, hemoglobin 9.3, hematocrit 29.5, and platelets 183,000. 2. CMP: Sodium 141, potassium 3.8, chloride 108, CO2 of 26, anion gap 10.8, BUN 8, creatinine 0.7, GFR greater than 60, glucose 95, calcium 8.4, AST 14, ALT 17, alkaline phosphatase 61, and total protein 5.9. 3. Lactic acid 0.7. 4. Alcohol < 3. DISCHARGE MEDICATIONS: 1. Acetaminophen 650 mg 1 tablet p.o. every 6 hours as needed. 2. Cyanocobalamin 250 mcg 1 tablet p.o. daily. 3. Docusate sodium 2 tablets p.o. twice daily as needed. 4. Fluticasone 1 spray to each nostril twice daily. 5. Xanax 1 mg 1 tablet p.o. twice daily. 6. Multivitamin 1 tablet p.o. daily. 7. Thiamine 100 mg 1 tablet p.o. daily. 8. Folic acid 1 mg 1 tablet p.o. daily. REVIEW OF SYSTEMS: Constitutional: Negative. Skin: Negative. Respiratory: Negative. Cardiovascular: Negative. Abdomen: Negative. Extremities: Negative. Neurological: Negative. DISCHARGE PHYSICAL EXAMINATION: Vital Signs: Temperature 98.2, pulse 77, blood pressure 106/65, respiratory rate 19, and oxygen saturation 95% on room air. Skin: Intact, warm, and dry. Respiratory: Lungs are decreased throughout, otherwise clear. Cardiovascular: Regular rate and rhythm, no murmur. Abdomen: Soft, nontender. Bowel sounds are hypoactive x4. Extremities: No edema. Neurologic: The patient is alert. The patient is oriented to person, place, and time. ASSESSMENT: 1. Acute alcohol intoxication - resolved. 2. Closed head injury without loss of consciousness. 3. Lactic acidosis - resolved. 4. Fall. PLAN: A 55-year-old female patient was admitted to the acute care floor last evening for acute alcohol intoxication. The patient is hemodynamically stable and afebrile this morning and is ready for discharge to home. The patient will be started on multivitamin, folic acid, and thiamine. A long discussion was held in regard to alcohol cessation. Continue all other home medications the same. The patient will follow up with her primary care provider this week. TB: 03/11/2021 07:25:31 MODL: 03/11/2021 10:06:05 /[id number] MTDD
[2021-03-12] MEDS ORDERED: Citalopram 10 MG Tab PO SCH (08:00)
== END 2021-03-11 11:00 | disposition home or self-care (01) | DRG 897 ==
LOC: VM.ED 20:24 → VM.MS 22:06
PROVIDERS: ADMIT Nurse Practitioner Family; ATTEND Family Medicine
DX: F10.129 Alcohol abuse with intoxication, unspecified (principal); E87.2 Acidosis; W18.30XA Fall on same level, unspecified, initial encounter; S09.90XA Unspecified injury of head, initial encounter; Z20.822 Contact with and (suspected) exposure to COVID-19; J44.9 Chronic obstructive pulmonary disease, unspecified; K21.9 Gastro-esophageal reflux disease without esophagitis; K59.09 Other constipation; F41.9 Anxiety disorder, unspecified; F32.9 Major depressive disorder, single episode, unspecified; Z86.16 Personal history of COVID-19; Y92.009 Unspecified place in unspecified non-institutional (private) residence as the place of occurrence of the external cause; Z90.49 Acquired absence of other specified parts of digestive tract
CPT/HCPCS: 36415; 70450; 71046; 80053; 80305-QW; 80307; 81003; 82977; 83605; 83615; 83735; 83880; 84100; 84145; 84443; 84484; 85025; 85610; 85730; 86140; 87040; 90686; 93005; A9270-GY; C9113; G0008; J0696; J3360; J3411; J7030; U0002

== ENCOUNTER 2021-06-06 10:38 | Observation (INO) | payer MEDICAID ==
[2021-06-06] MEDS ORDERED: Ondansetron 4 MG/2 ML SDV IVPUSH ONE (10:50)
[2021-06-06] MEDS ORDERED: Sodium Chloride 0.9% 10 ML Syringe FLUSH PRN (10:50)
[2021-06-06] MEDS ORDERED: Sodium Chloride 0.9% 1,000 ML IV ONE (10:50)
[2021-06-06] MEDS ORDERED: Flumazenil 0.1 MG/ML 5 ML MDV IVPUSH ONE ×2 (10:50→11:29)
[2021-06-06] MEDS: Flumazenil 0.1 MG/ML 5 ML MDV ONE ×2 (10:56→13:12)
[2021-06-06 11:31] LABS: CHLORIDE,CL 104 mmol/L (98-107); SODIUM,NA 140 mmol/L (136-145)
[2021-06-06 11:33] LABS: ANION GAP 15.4 mmol/L (5-15)
--- NOTE | 2021-06-06 11:45 | CT ---
[id number] CT/CT Head WO IV EXAM: CT Head WO IV CLINICAL DATA: UNRESPONSIVE. COMPARISON STUDY: None FINDINGS: No intracranial hemorrhage, extra-axial fluid collection, mass, or acute ischemia. Generalized parenchymal atrophy with scattered areas of nonspecific white matter disease, commonly seen as sequela of chronic microvascular ischemia. Soft tissues are unremarkable. Paranasal sinuses and mastoid air cells are clear. IMPRESSION: No acute intracranial findings. Rahul Campos DO 06/06/21 1144 Thank you for allowing us to participate in the care of your patient.
--- NOTE | 2021-06-06 12:01 | EDM.PDOC ---
ED HPI GENERAL MEDICAL PROBLEM - General Chief Complaint: Neuro Symptoms/Deficits Stated Complaint: DRINKING, DRUGUSE Time Seen by Provider: 06/06/21 10:48 Source of Information: Reports: Patient, EMS, Police History Limitations: Reports: Intoxication - History of Present Illness INITIAL COMMENTS - FREE TEXT/NARRATIVE: Patient brought to ED with report of unresponsiveness and lying on the floor at a neighbor. Does have drinking and xanax use together. Two doses of narcan administered by PD that did nothing. Grunting on arrival. Onset: Today - Related Data Allergies Allergy/AdvReac Type Severity Reaction Status Date / Time guaifenesin [From Mucinex] Allergy Intermediate Swollen Verified 06/06/21 13:03 Eyes cyclobenzaprine Allergy Hallucinati Verified 06/06/21 13:03 [From Flexeril] ons Home Meds: Home Meds Citalopram [Citalopram HBr] 30 mg PO DAILY 05/29/19 [History] ALPRAZolam [Xanax] 1 mg PO TID PRN 07/20/20 [History] Acetaminophen [Tylenol] 650 mg PO Q6H 07/20/20 [History] Cyanocobalamin (Vitamin B-12) [Vitamin B-12] 250 mcg PO DAILY 07/20/20 [History] Fluticasone Propionate [Flonase] 1 spray NS BID 07/20/20 [History] Sennosides/Docusate Sodium [Docusate Sodium-Sennosides Tab] 2 each PO BID PRN 07/20/20 [History] Omeprazole 20 mg PO BEDTIME cap.cr 07/24/20 [Rx] Albuterol/Ipratropium [DuoNeb 3.0-0.5 MG/3 ML] 1 inh INH QID PRN 03/10/21 [History] Fluticasone Propion/Salmeterol [Airduo Digihaler 113-14 Mcg] 1 puff INH BID 03/10/21 [History] Past Medical History - Past Health History Medical/Surgical History: Denies Medical/Surgical History Respiratory History: Reports: COPD Gastrointestinal History: Reports: Chronic Constipation, GERD INTELLECTUAL PROPERTY COUNSEL History: Reports: Other 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 - Infectious Disease History Infectious Disease History: Reports: Other (See Below) Other Infectious Disease History: Covid-19 - Past Surgical History HEENT Surgical History: Reports: Other (See Below) Other HEENT Surgeries/Procedures: Pom[place] teeth removed GI Surgical History: Reports: Appendectomy Social & Family History - Family History Family Medical History: No Pertinent Family History - Caffeine Use Caffeine Use: Reports: Coffee, Soda ED ROS GENERAL - Review of Systems Review Of Systems: Unable To Obtain Reason Not Obtained: intoxication ED EXAM, NEURO - Physical Exam Exam: See Below Exam Limited By: Intoxication General Appearance: Obtunded Eye Exam: Bilateral Eye: EOMI, Normal Inspection Ears: Normal External Exam, Normal Canal, Hearing Grossly Normal, Normal TMs Nose: Normal Inspection, Normal Mucosa, No Blood Throat/Mouth: Normal Inspection, Normal Lips, Normal Teeth, Normal Gums, Normal Oropharynx, Normal Voice, No Airway Compromise Head Exam: Atraumatic, Normocephalic Neck: Normal Inspection, Supple, Non-Tender, Full Range of Motion Respiratory/Chest: No Respiratory Distress, Lungs Clear, Normal Breath Sounds, No Accessory Muscle Use, Chest Non-Tender Cardiovascular: Normal Peripheral Pulses, Regular Rate, Rhythm, No Edema, No Gallop, No JVD, No Murmur, No Rub GI/Abdominal: Normal Bowel Sounds, Soft, Non-Tender, No Organomegaly, No Distention, No Abnormal Bruit, No Mass Neurological: Other (reduced level of consciousness) Back Exam: Normal Inspection, Full Range of Motion, NT Extremities: Normal Inspection, Normal Range of Motion, Non-Tender, No Pedal Edema, Normal Capillary Refill Psychiatric: Normal Affect, Normal Mood Skin Exam: Warm, Dry, Intact, Normal Color, No Rash Course - Vital Signs Last Recorded V/S: Last Vital Signs Temp 36.6 C 06/06/21 10:50 Pulse 117 H 06/06/21 10:50 Resp 11 L 06/06/21 10:50 BP 117/72 06/06/21 10:50 Pulse Ox 62 L 06/06/21 10:50 - Orders/Labs/Meds Orders: Active Orders 24 hr Category Date Time Status Patient Status [ADT] Routine ADT 06/06/21 13:06 Ordered Sodium Chloride 0.9% [Saline Flush] Med 06/06/21 10:50 Active 10 ml FLUSH ASDIRECTED PRN Saline Lock Insert [OM.PC] Routine Oth 06/06/21 10:50 Ordered Medication Orders Sodium Chloride (Sodium Chloride 0.9% 10 Ml Syringe) 10 ml FLUSH ASDIRECTED PRN PRN Reason: Keep Vein Open Labs: Laboratory Tests 06/06/21 06/06/21 06/06/21 Range/Units 11:02 11:02 11:02 WBC 8.3 (4.0-10.0) x10^3/uL RBC 4.45 (4.00-5.50) x10^6/uL Hgb 9.2 L (12.0-16.0) g/dL Hct 31.9 L (33.0-47.0) % MCV 71.7 L D (78.0-93.0) fL MCH 20.7 L (26.0-32.0) pg MCHC 28.8 L (32.0-36.0) g/dL RDW Coeff of Grace 20.5 H (10.0-15.0) % Plt Count 297 D (130-400) x10^3/uL Immature Gran % (Auto) 0.10 (0.00-0.43) % Neut % (Auto) 55.9 (50.0-80.0) % Lymph % (Auto) 31.6 (25.0-50.0) % Nolan % (Auto) 8.3 (2.0-11.0) % Eos % (Auto) 3.6 (0.0-4.0) % Baso % (Auto) 0.5 (0.2-1.2) % Neut # (Auto) 4.7 (1.8-7.7) x10^3/uL Lymph # (Auto) 2.6 (1.0-4.8) x10^3/uL Nolan # (Auto) 0.7 (0.0-0.8) x10^3/uL Eos # (Auto) 0.3 (0.0-0.5) x10^3/uL Baso # (Auto) 0.0 (0.0-0.2) x10^3/uL Immature Gran # (Auto) 0.01 (0.00-0.07) x10^3/uL PT 9.6 L (9.9-12.5) SEC INR 0.9 L (2.0-3.5) APTT 20.8 L (25.6-32.8) SEC Sodium 140 (136-145) mmol/L Potassium 4.4 (3.5-5.1) mmol/L Chloride 104 (98-107) mmol/L Carbon Dioxide 25 (21-32) mmol/L Anion Gap 15.4 H (5-15) mmol/L BUN 8 (7-18) mg/dL Creatinine 0.6 (0.55-1.02) mg/dL Est Cr Clr Drug Dosing TNP Estimated GFR (MDRD) > 60 Glucose 104 H (70-99) mg/dL Calcium 8.4 L (8.5-10.1) mg/dL Corrected Calcium 9.1 (8.5-10.1) mg/dL Magnesium 2.3 (1.8-2.4) mg/dL Total Bilirubin 0.2 (0.2-1.0) mg/dL AST 30 (15-37) U/L ALT 17 (14-59) U/L Alkaline Phosphatase 68 (46-116) U/L Creatine Kinase 51 (26-192) U/L Troponin I High Sens 5 (<=51) ng/L Total Protein 6.8 (6.4-8.2) g/dL Albumin 3.1 L (3.4-5.0) g/dL Globulin 3.7 Albumin/Globulin Ratio 0.84 Urine Opiates Screen (NEGATIVE) Ur Buprenorphine Scrn (NEGATIVE) Ur Oxycodone Screen (NEGATIVE) Urine Methadone Screen (NEGATIVE) Ur Barbituates Screen (NEGATIVE) Ur Phencyclidine Scrn (NEGATIVE) Ur Amphetamines Screen (NEGATIVE) U Methamphetamines Scrn (NEGATIVE) Urine MDMA Screen (NEGATIVE) U Benzodiazepines Scrn (NEGATIVE) Urine Cocaine Screen (NEGATIVE) U Marijuana (THC) Screen (NEGATIVE) Ethyl Alcohol 299 H (0-3) mg/dL SARS CoV-2 RNA Rapid PAMELA (NEGATIVE) 06/06/21 06/06/21 Range/Units 11:45 12:55 WBC (4.0-10.0) x10^3/uL RBC (4.00-5.50) x10^6/uL Hgb (12.0-16.0) g/dL Hct (33.0-47.0) % MCV (78.0-93.0) fL MCH (26.0-32.0) pg MCHC (32.0-36.0) g/dL RDW Coeff of Grace (10.0-15.0) % Plt Count (130-400) x10^3/uL Immature Gran % (Auto) (0.00-0.43) % Neut % (Auto) (50.0-80.0) % Lymph % (Auto) (25.0-50.0) % Nolan % (Auto) (2.0-11.0) % Eos % (Auto) (0.0-4.0) % Baso % (Auto) (0.2-1.2) % Neut # (Auto) (1.8-7.7) x10^3/uL Lymph # (Auto) (1.0-4.8) x10^3/uL Nolan # (Auto) (0.0-0.8) x10^3/uL Eos # (Auto) (0.0-0.5) x10^3/uL Baso # (Auto) (0.0-0.2) x10^3/uL Immature Gran # (Auto) (0.00-0.07) x10^3/uL PT (9.9-12.5) SEC INR (2.0-3.5) APTT (25.6-32.8) SEC Sodium (136-145) mmol/L Potassium (3.5-5.1) mmol/L Chloride (98-107) mmol/L Carbon Dioxide (21-32) mmol/L Anion Gap (5-15) mmol/L BUN (7-18) mg/dL Creatinine (0.55-1.02) mg/dL Est Cr Clr Drug Dosing Estimated GFR (MDRD) Glucose (70-99) mg/dL Calcium (8.5-10.1) mg/dL Corrected Calcium (8.5-10.1) mg/dL Magnesium (1.8-2.4) mg/dL Total Bilirubin (0.2-1.0) mg/dL AST (15-37) U/L ALT (14-59) U/L Alkaline Phosphatase (46-116) U/L Creatine Kinase (26-192) U/L Troponin I High Sens (<=51) ng/L Total Protein (6.4-8.2) g/dL Albumin (3.4-5.0) g/dL Globulin Albumin/Globulin Ratio Urine Opiates Screen Negative (NEGATIVE) Ur Buprenorphine Scrn Negative (NEGATIVE) Ur Oxycodone Screen Negative (NEGATIVE) Urine Methadone Screen Negative (NEGATIVE) Ur Barbituates Screen Negative (NEGATIVE) Ur Phencyclidine Scrn Negative (NEGATIVE) Ur Amphetamines Screen Negative (NEGATIVE) U Methamphetamines Scrn Negative (NEGATIVE) Urine MDMA Screen Negative (NEGATIVE) U Benzodiazepines Scrn Positive H (NEGATIVE) Urine Cocaine Screen Negative (NEGATIVE) U Marijuana (THC) Screen Negative (NEGATIVE) Ethyl Alcohol (0-3) mg/dL SARS CoV-2 RNA Rapid PAMELA Negative (NEGATIVE) Meds: Medications Generic Name Dose Route Start Last Admin Trade Name Freq PRN Reason Stop Dose Admin Sodium Chloride 10 ml 06/06/21 10:50 Sodium Chloride 0.9% 10 Ml Syringe FLUSH ASDIRECTED PRN Keep Vein Open Discontinued Medications Generic Name Dose Route Start Last Admin Trade Name Freq PRN Reason Stop Dose Admin Flumazenil 0.2 mg 06/06/21 10:50 06/06/21 10:43 Flumazenil 0.1 Mg/Ml 5 Ml Mdv IVPUSH 06/06/21 10:51 0.2 mg ONETIME ONE Administration Flumazenil Confirm 06/06/21 11:00 Flumazenil 0.1 Mg/Ml 5 Ml Mdv Administered 06/06/21 11:01 Dose 0.5 mg .ROUTE .STK-MED ONE Flumazenil 0.2 mg 06/06/21 11:29 06/06/21 10:56 Flumazenil 0.1 Mg/Ml 5 Ml Mdv IVPUSH 06/06/21 11:30 0.2 mg ONETIME ONE Administration Sodium Chloride 1,000 mls @ 999 mls/hr 06/06/21 10:50 06/06/21 11:04 Normal Saline IV 06/06/21 11:50 999 mls/hr ONETIME ONE Administration - Radiology Interpretation Free Text/Narrative:: 2 doses of romazicon given with good effect. Patient able to maintain airway. Good saturations. More active after receiving. - Re-Assessments/Exams Free Text/Narrative Re-Assessment/Exam: 06/06/21 13:13 Patient up and out of bed without calling. Pulled out IV. Did also fall in the bathroom as she was unattended. Hit her head sliding down the wall. No head injury. Departure - Discharge Information Forms: ED Department Discharge Sepsis Event Note (ED) - Focused Exam Vital Signs: Vital Signs Temp Pulse Resp BP Pulse Ox Pulse Ox 06/06/21 10:50 36.6 C 117 H 11 L 117/72 62 L 06/06/21 10:40 100 - Problem List & Annotations (1) Benzodiazepine abuse SNOMED Code(s): 007550979, 414170774 Code(s): F13.10 - SEDATIVE, HYPNOTIC OR ANXIOLYTIC ABUSE, UNCOMPLICATED Status: Acute Current Visit: Yes (2) Alcohol abuse SNOMED Code(s): 74309920 Code(s): F10.10 - ALCOHOL ABUSE, UNCOMPLICATED Status: Acute Current Visit: No - My Orders Last 24 Hours: My Active Orders 06/06/21 10:50 Sodium Chloride 0.9% [Saline Flush] 10 ml FLUSH ASDIRECTED PRN Saline Lock Insert [OM.PC] Routine 06/06/21 13:06 Patient Status [ADT] Routine - Assessment/Plan Last 24 Hours: My Active Orders 06/06/21 10:50 Sodium Chloride 0.9% [Saline Flush] 10 ml FLUSH ASDIRECTED PRN Saline Lock Insert [OM.PC] Routine 06/06/21 13:06 Patient Status [ADT] Routine Plan: admit to observation until overdose of xanax and intoxication wears off. Report to Power Krishnan
[2021-06-06 12:04] LABS: PTT,PARTIAL THROMBOPLSTIN TIME 20.8 SEC (25.6-32.8)
--- NOTE | 2021-06-06 12:13 | CR ---
[id number] RAD/RAD Chest PA or AP 1V EXAM: RAD Chest PA or AP 1V INDICATION: UNRESPONSIVE COMPARISON: July 22, 2020. DISCUSSION/IMPRESSION: Cardiomediastinal silhouette is normal in size and contour. Subtle opacification projects over the left lung base. Findings are nonspecific but can be seen with developing pneumonia, aspiration, or atelectasis. Lungs are otherwise clear. No pleural effusion or pneumothorax. Jose Dill MD 06/06/21 1212 Thank you for allowing us to participate in the care of your patient.
[2021-06-06 13:05] LABS: BUPRENORPHINE,URINE NEGATIVE (NEGATIVE); MARIJUANA,URINE NEGATIVE (NEGATIVE); METHYLENEDIOXYMETHAMP,UR NEGATIVE (NEGATIVE); PHENCYCLIDINE,URINE NEGATIVE (NEGATIVE)
[2021-06-06] MEDS ORDERED: Ondansetron 4 MG/2 ML SDV IV PRN (15:00)
[2021-06-06] MEDS: Multivitamins w-Iron/Ca/FA/Min 1 TAB, Thiamine 100 MG, Folic Acid 1 MG, Magnesium Oxide... PO SCH ×3 (15:41)
[2021-06-06] MEDS: Lactated Ringers 1,000 ML IV SCH (15:45)
[2021-06-06] MEDS ORDERED: LORazepam 2 MG/ML SDV IV PRN (21:55)
[2021-06-07] MEDS: Lactated Ringers 1,000 ML IV SCH (04:03)
[2021-06-07] MEDS ORDERED: Acetaminophen 500 MG Tab PO ONE (05:56)
[2021-06-07] MEDS: Multivitamins w-Iron/Ca/FA/Min 1 TAB, Thiamine 100 MG, Folic Acid 1 MG, Magnesium Oxide... PO SCH ×3 (09:03)
[2021-06-07 09:57] VITALS: BP 130/79; PULSE 82
--- NOTE | 2021-06-07 10:24 | PCM.HP.2 ---
H&P History of Present Illness - General Date of Service: 06/06/21 Admit Problem/Dx: Admission Diagnosis/Problem Admission Diagnosis/Problem Alcohol abuse Source of Information: Patient - History of Present Illness Initial Comments - Free Text/Narative: This patient was admitted into the hospital from the emergency department for concerns of acute alcohol intoxication as well as overdose on benzodiazepines. This patient has a history of COPD hyperglycemia smoker chronic alcohol abuse narcotic abuse GERD recurrent episode of major depressive disorder. This patient relates that she was drinking today quite heavily this morning. She reports that she only drinks about 1 day every 2 weeks. She also has been taking her Xanax which was 1 mg 3 times daily. This morning she was found to be unresponsive on the floor when she was found by a neighbor. Responding PD did give the patient multiple doses of Narcan without much improvement. She was subsequently brought to the emergency department and noted to be obtunded. She received flumazenil x2 doses with resolution of her obtundation. She had a bottle of alprazolam 1 mg that was filled on 06/04/21 that had a total of 33 missing tablets of Xanax. He was monitored for a short period of time in the emergency department and placed into the hospital under observation due to her obtundation as well as her alcohol intoxication. At the time of exam the patient really does not complain of anything other than feeling tired. She has no headache visual acuity changes. He has no chest pain or shortness of breath or difficulty breathing. No hallucinations or delusions. She denies taking any of the Xanax other than the way that it is absolutely prescribed. She is unsure of why there are 33 tablets of Xanax missing after it was filled 2 days ago. She reports that she drinks alcohol only every 2 weeks. She has no seizure-like activity. No hallucinations or delusions. No anxiety. She denies any other recreational drug usage. Head Pain Score (Numeric/FACES): 5 - Related Data Allergies/Adverse Reactions: Allergies Allergy/AdvReac Type Severity Reaction Status Date / Time guaifenesin [From Mucinex] Allergy Intermediate Swollen Verified 06/06/21 13:03 Eyes cyclobenzaprine Allergy Hallucinati Verified 06/06/21 13:03 [From Flexeril] ons Home Medications: Home Meds Citalopram [Citalopram HBr] 30 mg PO DAILY 05/29/19 [History] ALPRAZolam [Xanax] 1 mg PO TID PRN 07/20/20 [History] Acetaminophen [Tylenol] 650 mg PO Q6H 07/20/20 [History] Cyanocobalamin (Vitamin B-12) [Vitamin B-12] 250 mcg PO DAILY 07/20/20 [History] Fluticasone Propionate [Flonase] 1 spray NS BID 07/20/20 [History] Sennosides/Docusate Sodium [Docusate Sodium-Sennosides Tab] 2 each PO BID PRN 07/20/20 [History] Omeprazole 20 mg PO BEDTIME cap.cr 07/24/20 [Rx] Albuterol/Ipratropium [DuoNeb 3.0-0.5 MG/3 ML] 1 inh INH QID PRN 03/10/21 [History] Fluticasone Propion/Salmeterol [Airduo Digihaler 113-14 Mcg] 1 puff INH BID 03/10/21 [History] Fluticasone Propion/Salmeterol [Airduo Digihaler 113-14 Mcg] 1 puff INH BID 06/06/21 [History] Naproxen 500 mg PO BID 06/06/21 [History] Past Medical History - Past Health History Medical/Surgical History: Denies Medical/Surgical History Respiratory History: Reports: COPD Gastrointestinal History: Reports: Chronic Constipation, GERD 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 - Infectious Disease History Infectious Disease History: Reports: Novel Coronavirus, Other (See Below) Other Infectious Disease History: Covid-19 - Past Surgical History HEENT Surgical History: Reports: Other (See Below) Other HEENT Surgeries/Procedures: [place] teeth removed GI Surgical History: Reports: Appendectomy Social & Family History - Family History Family Medical History: No Pertinent Family History - Tobacco Use Tobacco Use Status *Q: Current Every Day Tobacco User Years of Tobacco use: 33 Packs/Tins Daily: 1 - Caffeine Use Caffeine Use: Reports: Coffee, Soda H&P Review of Systems - Review of Systems: Review Of Systems: Comprehensive ROS is negative, except as noted in HPI. Exam - Exam Exam: See Below - Vital Signs Vital Signs: Last Vital Signs Temp 98.1 F 06/07/21 09:56 Pulse 82 06/07/21 09:56 Resp 17 06/07/21 09:56 BP 130/79 06/07/21 09:56 Pulse Ox 91 L 06/07/21 09:56 Weight: 174 lb 8 oz - Exam Quality Assessment: Supplemental Oxygen General: Alert, Oriented HEENT: Conjunctiva Clear, EACs Clear, EOMI, Hearing Intact Neck: Supple, Trachea Midline Lungs: Clear to Auscultation, Normal Respiratory Effort Cardiovascular: Regular Rate, Regular Rhythm GI/Abdominal Exam: Normal Bowel Sounds, Soft, Non-Tender (Female) Exam: Deferred Rectal (Female) Exam: Deferred Back Exam: Normal Inspection, Full Range of Motion Extremities: Normal Inspection, Normal Range of Motion, Non-Tender, No Pedal Edema, Normal Capillary Refill Skin: Warm, Dry, Intact Neurological: Cranial Nerves Intact, Reflexes Equal Bilateral Neuro Extensive - Mental Status: Alert, Oriented x3 Neuro Extensive - Motor, Sensory, Reflexes: CN II-XII Intact Psychiatric: Alert. No: Suicidal Ideation, Homicidal Ideation, Hallucinations, Withdrawal Symptoms - Patient Data Lab Results Last 24 hrs: Laboratory Results - last 24 hr 06/06/21 06/06/21 06/06/21 Range/Units 11:02 11:02 11:02 WBC 8.3 (4.0-10.0) x10^3/uL RBC 4.45 (4.00-5.50) x10^6/uL Hgb 9.2 L (12.0-16.0) g/dL Hct 31.9 L (33.0-47.0) % MCV 71.7 L D (78.0-93.0) fL MCH 20.7 L (26.0-32.0) pg MCHC 28.8 L (32.0-36.0) g/dL RDW Coeff of Grace 20.5 H (10.0-15.0) % Plt Count 297 D (130-400) x10^3/uL Immature Gran % (Auto) 0.10 (0.00-0.43) % Neut % (Auto) 55.9 (50.0-80.0) % Lymph % (Auto) 31.6 (25.0-50.0) % Webster % (Auto) 8.3 (2.0-11.0) % Eos % (Auto) 3.6 (0.0-4.0) % Baso % (Auto) 0.5 (0.2-1.2) % Neut # (Auto) 4.7 (1.8-7.7) x10^3/uL Lymph # (Auto) 2.6 (1.0-4.8) x10^3/uL Webster # (Auto) 0.7 (0.0-0.8) x10^3/uL Eos # (Auto) 0.3 (0.0-0.5) x10^3/uL Baso # (Auto) 0.0 (0.0-0.2) x10^3/uL Immature Gran # (Auto) 0.01 (0.00-0.07) x10^3/uL PT 9.6 L (9.9-12.5) SEC INR 0.9 L (2.0-3.5) APTT 20.8 L (25.6-32.8) SEC Sodium 140 (136-145) mmol/L Potassium 4.4 (3.5-5.1) mmol/L Chloride 104 (98-107) mmol/L Carbon Dioxide 25 (21-32) mmol/L Anion Gap 15.4 H (5-15) mmol/L BUN 8 (7-18) mg/dL Creatinine 0.6 (0.55-1.02) mg/dL Est Cr Clr Drug Dosing TNP Estimated GFR (MDRD) > 60 Glucose 104 H (70-99) mg/dL Calcium 8.4 L (8.5-10.1) mg/dL Corrected Calcium 9.1 (8.5-10.1) mg/dL Magnesium 2.3 (1.8-2.4) mg/dL Total Bilirubin 0.2 (0.2-1.0) mg/dL AST 30 (15-37) U/L ALT 17 (14-59) U/L Alkaline Phosphatase 68 (46-116) U/L Creatine Kinase 51 (26-192) U/L Troponin I High Sens 5 (<=51) ng/L Total Protein 6.8 (6.4-8.2) g/dL Albumin 3.1 L (3.4-5.0) g/dL Globulin 3.7 Albumin/Globulin Ratio 0.84 TSH, Ultra Sensitive (0.358-3.74) uIU/mL Urine HCG, Qual (NEGATIVE) Salicylates (2.8-20(Therapeutic)) mg/dL Urine Opiates Screen (NEGATIVE) Ur Buprenorphine Scrn (NEGATIVE) Ur Oxycodone Screen (NEGATIVE) Urine Methadone Screen (NEGATIVE) Acetaminophen (10-30) ug/ml Ur Barbituates Screen (NEGATIVE) Ur Phencyclidine Scrn (NEGATIVE) Ur Amphetamines Screen (NEGATIVE) U Methamphetamines Scrn (NEGATIVE) Urine MDMA Screen (NEGATIVE) U Benzodiazepines Scrn (NEGATIVE) Urine Cocaine Screen (NEGATIVE) U Marijuana (THC) Screen (NEGATIVE) Ethyl Alcohol 299 H (0-3) mg/dL SARS CoV-2 RNA Rapid PAMELA (NEGATIVE) 06/06/21 06/06/21 06/06/21 Range/Units 11:02 11:02 11:45 WBC (4.0-10.0) x10^3/uL RBC (4.00-5.50) x10^6/uL Hgb (12.0-16.0) g/dL Hct (33.0-47.0) % MCV (78.0-93.0) fL MCH (26.0-32.0) pg MCHC (32.0-36.0) g/dL RDW Coeff of Grace (10.0-15.0) % Plt Count (130-400) x10^3/uL Immature Gran % (Auto) (0.00-0.43) % Neut % (Auto) (50.0-80.0) % Lymph % (Auto) (25.0-50.0) % Webster % (Auto) (2.0-11.0) % Eos % (Auto) (0.0-4.0) % Baso % (Auto) (0.2-1.2) % Neut # (Auto) (1.8-7.7) x10^3/uL Lymph # (Auto) (1.0-4.8) x10^3/uL Webster # (Auto) (0.0-0.8) x10^3/uL Eos # (Auto) (0.0-0.5) x10^3/uL Baso # (Auto) (0.0-0.2) x10^3/uL Immature Gran # (Auto) (0.00-0.07) x10^3/uL PT (9.9-12.5) SEC INR (2.0-3.5) APTT (25.6-32.8) SEC Sodium (136-145) mmol/L Potassium (3.5-5.1) mmol/L Chloride (98-107) mmol/L Carbon Dioxide (21-32) mmol/L Anion Gap (5-15) mmol/L BUN (7-18) mg/dL Creatinine (0.55-1.02) mg/dL Est Cr Clr Drug Dosing Estimated GFR (MDRD) Glucose (70-99) mg/dL Calcium (8.5-10.1) mg/dL Corrected Calcium (8.5-10.1) mg/dL Magnesium (1.8-2.4) mg/dL Total Bilirubin (0.2-1.0) mg/dL AST (15-37) U/L ALT (14-59) U/L Alkaline Phosphatase (46-116) U/L Creatine Kinase (26-192) U/L Troponin I High Sens (<=51) ng/L Total Protein (6.4-8.2) g/dL Albumin (3.4-5.0) g/dL Globulin Albumin/Globulin Ratio TSH, Ultra Sensitive 0.973 (0.358-3.74) uIU/mL Urine HCG, Qual (NEGATIVE) Salicylates 3.3 (2.8-20(Therapeutic)) mg/dL Urine Opiates Screen (NEGATIVE) Ur Buprenorphine Scrn (NEGATIVE) Ur Oxycodone Screen (NEGATIVE) Urine Methadone Screen (NEGATIVE) Acetaminophen 0 L (10-30) ug/ml Ur Barbituates Screen (NEGATIVE) Ur Phencyclidine Scrn (NEGATIVE) Ur Amphetamines Screen (NEGATIVE) U Methamphetamines Scrn (NEGATIVE) Urine MDMA Screen (NEGATIVE) U Benzodiazepines Scrn (NEGATIVE) Urine Cocaine Screen (NEGATIVE) U Marijuana (THC) Screen (NEGATIVE) Ethyl Alcohol (0-3) mg/dL SARS CoV-2 RNA Rapid PAMELA Negative (NEGATIVE) 06/06/21 06/06/21 06/06/21 Range/Units 12:55 12:55 19:56 WBC (4.0-10.0) x10^3/uL RBC (4.00-5.50) x10^6/uL Hgb (12.0-16.0) g/dL Hct (33.0-47.0) % MCV (78.0-93.0) fL MCH (26.0-32.0) pg MCHC (32.0-36.0) g/dL RDW Coeff of Grace (10.0-15.0) % Plt Count (130-400) x10^3/uL Immature Gran % (Auto) (0.00-0.43) % Neut % (Auto) (50.0-80.0) % Lymph % (Auto) (25.0-50.0) % Webster % (Auto) (2.0-11.0) % Eos % (Auto) (0.0-4.0) % Baso % (Auto) (0.2-1.2) % Neut # (Auto) (1.8-7.7) x10^3/uL Lymph # (Auto) (1.0-4.8) x10^3/uL Webster # (Auto) (0.0-0.8) x10^3/uL Eos # (Auto) (0.0-0.5) x10^3/uL Baso # (Auto) (0.0-0.2) x10^3/uL Immature Gran # (Auto) (0.00-0.07) x10^3/uL PT (9.9-12.5) SEC INR (2.0-3.5) APTT (25.6-32.8) SEC Sodium (136-145) mmol/L Potassium (3.5-5.1) mmol/L Chloride (98-107) mmol/L Carbon Dioxide (21-32) mmol/L Anion Gap (5-15) mmol/L BUN (7-18) mg/dL Creatinine (0.55-1.02) mg/dL Est Cr Clr Drug Dosing Estimated GFR (MDRD) Glucose (70-99) mg/dL Calcium (8.5-10.1) mg/dL Corrected Calcium (8.5-10.1) mg/dL Magnesium (1.8-2.4) mg/dL Total Bilirubin (0.2-1.0) mg/dL AST (15-37) U/L ALT (14-59) U/L Alkaline Phosphatase (46-116) U/L Creatine Kinase (26-192) U/L Troponin I High Sens (<=51) ng/L Total Protein (6.4-8.2) g/dL Albumin (3.4-5.0) g/dL Globulin Albumin/Globulin Ratio TSH, Ultra Sensitive (0.358-3.74) uIU/mL Urine HCG, Qual Negative (NEGATIVE) Salicylates (2.8-20(Therapeutic)) mg/dL Urine Opiates Screen Negative (NEGATIVE) Ur Buprenorphine Scrn Negative (NEGATIVE) Ur Oxycodone Screen Negative (NEGATIVE) Urine Methadone Screen Negative (NEGATIVE) Acetaminophen (10-30) ug/ml Ur Barbituates Screen Negative (NEGATIVE) Ur Phencyclidine Scrn Negative (NEGATIVE) Ur Amphetamines Screen Negative (NEGATIVE) U Methamphetamines Scrn Negative (NEGATIVE) Urine MDMA Screen Negative (NEGATIVE) U Benzodiazepines Scrn Positive H (NEGATIVE) Urine Cocaine Screen Negative (NEGATIVE) U Marijuana (THC) Screen Negative (NEGATIVE) Ethyl Alcohol 102 H (0-3) mg/dL SARS CoV-2 RNA Rapid PAMELA (NEGATIVE) Result Diagrams: 06/06/21 11:02 06/06/21 11:02 Sepsis Event Note - Evaluation Sepsis Screening Result: No Definite Risk - Focused Exam Vital Signs: Vital Signs Temp Pulse Resp BP Pulse Ox 06/07/21 09:56 98.1 F 82 17 130/79 91 L 06/07/21 06:26 97.6 F 86 12 128/89 99 06/07/21 06:23 97 06/07/21 06:00 80 97 06/07/21 02:00 97.8 F 99 19 142/79 H 94 L Problem List Initiated/Reviewed/Updated: Yes Orders Last 24hrs: Active Orders 24 hr Category Date Time Status Patient Status [ADT] Routine ADT 06/06/21 13:06 Active CIWAA Assessment [RC] Q1HR Care 06/06/21 21:55 Active Cardiac Monitoring [RC] 06,10,14,18,22,02 Care 06/06/21 15:00 Active Intake and Output [RC] 06,18 Care 06/06/21 15:00 Active Notify Provider Vital Signs [RC] 06,10,14,18,22,02 Care 06/06/21 15:00 Active Notify Provider [RC] PRN Care 06/06/21 21:55 Active Oxygen Therapy [RC] 08,20 Care 06/06/21 15:00 Active Pulse Oximetry [RC] 06,10,14,18,22,02 Care 06/06/21 15:00 Active Ready for Discharge [RC] PER UNIT ROUTINE Care 06/07/21 10:23 Ordered Up With Assistance [RC] 08,20 Care 06/06/21 15:00 Active VTE/DVT Education [RC] PER UNIT ROUTINE Care 06/06/21 15:00 Active Vital Signs [RC] 06,10,14,18,22,02 Care 06/06/21 15:00 Active Consult to Case Management/Investment Recovery Technician [CONS] Cons 06/06/21 21:55 Active Routine Regular Diet [DIET] Diet 06/07/21 Breakfast Active LORazepam [Ativan] Med 06/06/21 21:55 Active See Protocol IV ASDIRECTED PRN Lactated Ringers [Ringers, Lactated] 1,000 ml Med 06/06/21 15:00 Active IV ASDIRECTED Multivitamins w-Iron/Ca/FA/Min [Thera M Plus] 1 tab Med 06/06/21 15:15 Active Thiamine [Vitamin B-1] 100 mg Folic Acid 1 mg Magnesium Oxide 400 mg PO DAILY Ondansetron [Zofran] Med 06/06/21 15:00 Active 4 mg IV Q6H PRN Sodium Chloride 0.9% [Saline Flush] Med 06/06/21 10:50 Active 10 ml FLUSH ASDIRECTED PRN Saline Lock Insert [OM.PC] Routine Oth 06/06/21 10:50 Ordered Resuscitation Status Routine Resus Stat 06/06/21 15:00 Ordered Medication Orders Multivitamins/Minerals 1 tab/Thiamine HCl 100 mg/ Folic Acid 1 mg/ Magnesium Oxide 400 mg 0 tab PO DAILY [facility] Last Admin: 06/07/21 09:03 Dose: 1 each Documented by: Admin: 06/06/21 15:41 Dose: 1 each Documented by: BRIDGETT Lactated Ringer's (Ringers, Lactated) 1,000 mls @ 150 mls/hr IV ASDIRECTED SOFIYA Last Admin: 06/07/21 04:03 Dose: 150 mls/hr Documented by: Infusion: 06/06/21 22:26 Dose: 150 mls/hr Documented by: Admin: 06/06/21 15:45 Dose: 150 mls/hr Documented by: BRIDGETT Lorazepam (Lorazepam 2 Mg/Ml Sdv) 0 mg IV ASDIRECTED PRN; Protocol PRN Reason: Withdrawal Symptoms Ondansetron HCl (Ondansetron 4 Mg/2 Ml Sdv) 4 mg IV Q6H PRN PRN Reason: Nausea/Vomiting Last Admin: 06/06/21 15:42 Dose: 4 mg Documented by: BRIDGETT Sodium Chloride (Sodium Chloride 0.9% 10 Ml Syringe) 10 ml FLUSH ASDIRECTED PRN PRN Reason: Keep Vein Open Assessment/Plan Comment:: Assessment/plan. #1: Acute obtundation resolved after flumazenil administration in the emergency department. This is most likely multifactorial due to the accidental nonsuicidal overdose of Xanax and alcohol APAP Salicylate negative. UDS positive for benzos. Continuous pulse oximetry as well as telemetry. Due to her long-term usage of flumazenil I will not put in as needed flumazenil at this time due to the risk of severe withdrawal symptoms Monitor closely. #2: Acute alcohol intoxication in the presence of chronic alcoholism. Alcohol level in the emergency department to 299. Tele pulse ox. CIWAA scoring. Chronic diagnosis COPD continue home meds narcotic abuse monitor GERD continue home medication Sepsis: No signs of sepsis at this time. Monitor VTE: Short stay TEds low risk patient. Code status: Full code. The patient admitted from the emergency department for observation following her acute obtundation most likely due to her Xanax and alcohol. I would like to see if we can get her discharged tonight. This was not intentional suicidal attempt. She has been alert appropriate ambulatory and eating. I did discuss with poison control and her monitoring. For the acute obtundation following the flumazenil has been up. We will attempt to try to get her ambulatory recheck her alcohol and hopefully discharge her tonight if we can have someone that is sober and able to take care of her. Patient is comfortable with this plan and her questions are answered. If we are unable to finish that tonight she will be discharged in the morning. - Mortality Measure Prognosis:: Good
--- NOTE | 2021-06-07 10:28 | PCM.DCSUM1 ---
Discharge Summary - Hospital Course Diagnosis: Stroke: No - Discharge Data Discharge Date: 06/07/21 Discharge Disposition: Home, Self-Care 01 Condition: Good - Referral to Home Health Primary Care Physician: Kesha Alfredo MD - Patient Summary/Data Consults: Consultations 06/06/21 21:55 Consult to Case Management/Calculator Operator [CONS] Routine Hospital Course: Patient was admitted into the hospital overnight for observation following an episode of acute alcohol intoxication obtundation due to suspected Xanax usage in the presence of acute alcohol intoxication. This patient is well-known to have a longstanding history of alcohol abuse and narcotic abuse. She presented to the emergency department after she was found at home unresponsive on the floor. She was given a couple of doses of Romazicon in the emergency department with resolution of her obtundation. She was noted to have quite high alcohol. The work-up was essentially negative otherwise. This was not suicidal in nature this was a substance use disorder accidental overdose. She was placed under observation and monitored overnight. She was on CIWA scoring. She did not have any other episodes of obtundation. She had no signs of alcohol withdrawal. In the morning she was alert appropriate ambulatory eating and drinking without any complaints. She was also noted to have 33 tablets of 1 mg Xanax missing from the bottle that was prescribed just 2 days prior to the episode in the emergency department. In consultation with her primary care provider we will restrict her Xanax at this time. We will send her home with 12 tablets of Xanax and the remaining of the tablets were kept in our pharmacy to be released by her primary care provider. I discussed at length with the patient the concerns of benzodiazepines with alcohol and the possibility of with these usages together. She is uninterested in assistance with her s ubstance use disorder. She was discharged home with her family. - Patient Instructions Diet: Regular Diet as Tolerated, Drink 8-10+ Glasses/Day Driving: Do Not Drive Other/Special Instructions: Home today. Make sure and drink plenty of fluids especially electrolyte containing fluids. Eat small regular meals. NO ALCOHOL WHILE TAKING ALPRAZOLAM this can cause you to stop breathing like the concerns yesterday. Contact your clinic thursday for a pill count and nurse visit. Dr. Alfredo is aware. The rest of your prescription is in our pharmacy to be released by Dr. Alfredo only after thursday. We did sent 12 tabs home with you till then. See the [facility] [place] for assistance with your substance abuse. OTC multivitamin daily. Recheck in the clinic thursday. - Discharge Plan *PRESCRIPTION DRUG MONITORING PROGRAM REVIEWED*: Yes *COPY OF PRESCRIPTION DRUG MONITORING REPORT IN PATIENT ADAM: No Home Medications: Home Meds Citalopram [Citalopram HBr] 30 mg PO DAILY 05/29/19 [History] ALPRAZolam [Xanax] 1 mg PO TID PRN 07/20/20 [History] Acetaminophen [Tylenol] 650 mg PO Q6H 07/20/20 [History] Cyanocobalamin (Vitamin B-12) [Vitamin B-12] 250 mcg PO DAILY 07/20/20 [History] Fluticasone Propionate [Flonase] 1 spray NS BID 07/20/20 [History] Sennosides/Docusate Sodium [Docusate Sodium-Sennosides Tab] 2 each PO BID PRN 07/20/20 [History] Omeprazole 20 mg PO BEDTIME cap.cr 07/24/20 [Rx] Albuterol/Ipratropium [DuoNeb 3.0-0.5 MG/3 ML] 1 inh INH QID PRN 03/10/21 [History] Fluticasone Propion/Salmeterol [Airduo Digihaler 113-14 Mcg] 1 puff INH BID 03/10/21 [History] Fluticasone Propion/Salmeterol [Airduo Digihaler 113-14 Mcg] 1 puff INH BID 06/06/21 [History] Naproxen 500 mg PO BID 06/06/21 [History] Patient Handouts: Benzodiazepine Overdose, Alcohol Abuse and Dependence Info rmation, Adult, Alcohol Intoxication, [id number] Forms: ED Department Discharge Referrals: Kesha Alfredo MD [Primary Care Provider] - - Discharge Summary/Plan Comment DC Time >30 min.: Yes Total # of Minutes for Discharge Time: 45 Discharge Summary/Plan Comment: Acute obtundation most likely due to alcohol and Xanax with the presence of chronic substance abuse. The patient did have a prescription of Xanax filled 2 days ago which the pharmacy verified and noted that she had 33 missing tablets of 1 mg Xanax. I have been in discussion with the patient's primary care provider about my concerns of either misuse or other means of missing Xanax. The conclusion is that I will discharge her home today as she cannot be discontinued from her long-term benzodiazepine use due to the risk of severe withdrawal symptoms. I will send her home with 12 tablets of her own Xanax today she will see her primary care provider on Thursday and do a pill count. The rest of her medication will be kept in the pharmacy here in the hospital to be dispersed or dispensed from our control at the guidance of her primary care provider. She also needs to see substance abuse counseling. I discussed with her at length that the chronic usage of Xanax inappropriately especially in the presence of alcohol can be severe and can be life-threatening as it was concerning in the emergency department. Acute alcohol intoxication in the presence of alcoholism. Patient's alcohol was checked last night which was under 200. She shows no signs of alcohol withdrawal. We will start her on multivitamins as well as thiamine and folic acid. She has seen the [facility] ([facility]] service [place] in the past for her chronic substance abuse. She is uninterested in help at this time. - General Info Date of Service: 06/06/21 Admission Dx/Problem (Free Text: Admission Diagnosis/Problem Admission Diagnosis/Problem Alcohol abuse Acute alcohol intoxication in the presence of chronic alcohol usage. Acute obtundation due to alcohol and xanex. Subjective Update: Patient is feeling fine this morning she does not offer any complaints. She has been eating. She has been up ambulatory. She denies any weakness dizziness lightheadedness. No hallucinations delusions. No signs of withdrawal. She is feeling quite well and she wants to go home. Her family is here with her today and would like to be discharged. Functional Status: Reports: Pain Controlled - Review of Systems General: Reports: No Symptoms HEENT: Reports: No Symptoms Pulmonary: Reports: No Symptoms Cardiovascular: Reports: No Symptoms Gastrointestinal: Reports: No Symptoms Genitourinary: Reports: No Symptoms Musculoskeletal: Reports: No Symptoms Skin: Reports: No Symptoms Neurological: Reports: No Symptoms Psychiatric: Reports: No Symptoms - Patient Data Vitals - Most Recent: Last Vital Signs Temp 98.1 F 06/07/21 09:56 Pulse 82 06/07/21 09:56 Resp 17 06/07/21 09:56 BP 130/79 06/07/21 09:56 Pulse Ox 91 L 06/07/21 09:56 Weight - Most Recent: 174 lb 8 oz I&O - Last 24 hours: Intake & Output 06/06/21 06/07/21 06/07/21 22:59 06:59 14:59 Intake Total 880 1854 90 Output Total 750 1 Balance 130 1853 90 Lab Results - Last 24 hrs: Laboratory Results - last 24 hr 06/06/21 06/06/21 06/06/21 Range/Units 11:02 11:02 11:02 WBC 8.3 (4.0-10.0) x10^3/uL RBC 4.45 (4.00-5.50) x10^6/uL Hgb 9.2 L (12.0-16.0) g/dL Hct 31.9 L (33.0-47.0) % MCV 71.7 L D (78.0-93.0) fL MCH 20.7 L (26.0-32.0) pg MCHC 28.8 L (32.0-36.0) g/dL RDW Coeff of Grace 20.5 H (10.0-15.0) % Plt Count 297 D (130-400) x10^3/uL Immature Gran % (Auto) 0.10 (0.00-0.43) % Neut % (Auto) 55.9 (50.0-80.0) % Lymph % (Auto) 31.6 (25.0-50.0) % [place] % (Auto) 8.3 (2.0-11.0) % Eos % (Auto) 3.6 (0.0-4.0) % Baso % (Auto) 0.5 (0.2-1.2) % Neut # (Auto) 4.7 (1.8-7.7) x10^3/uL Lymph # (Auto) 2.6 (1.0-4.8) x10^3/uL [place] # (Auto) 0.7 (0.0-0.8) x10^3/uL Eos # (Auto) 0.3 (0.0-0.5) x10^3/uL Baso # (Auto) 0.0 (0.0-0.2) x10^3/uL Immature Gran # (Auto) 0.01 (0.00-0.07) x10^3/uL PT 9.6 L (9.9-12.5) SEC INR 0.9 L (2.0-3.5) APTT 20.8 L (25.6-32.8) SEC Sodium 140 (136-145) mmol/L Potassium 4.4 (3.5-5.1) mmol/L Chloride 104 (98-107) mmol/L Carbon Dioxide 25 (21-32) mmol/L Anion Gap 15.4 H (5-15) mmol/L BUN 8 (7-18) mg/dL Creatinine 0.6 (0.55-1.02) mg/dL Est Cr Clr Drug Dosing TNP Estimated GFR (MDRD) > 60 Glucose 104 H (70-99) mg/dL Calcium 8.4 L (8.5-10.1) mg/dL Corrected Calcium 9.1 (8.5-10.1) mg/dL Magnesium 2.3 (1.8-2.4) mg/dL Total Bilirubin 0.2 (0.2-1.0) mg/dL AST 30 (15-37) U/L ALT 17 (14-59) U/L Alkaline Phosphatase 68 (46-116) U/L Creatine Kinase 51 (26-192) U/L Troponin I High Sens 5 (<=51) ng/L Total Protein 6.8 (6.4-8.2) g/dL Albumin 3.1 L (3.4-5.0) g/dL Globulin 3.7 Albumin/Globulin Ratio 0.84 TSH, Ultra Sensitive (0.358-3.74) uIU/mL Urine HCG, Qual (NEGATIVE) Salicylates (2.8-20(Therapeutic)) mg/dL Urine Opiates Screen (NEGATIVE) Ur Buprenorphine Scrn (NEGATIVE) Ur Oxycodone Screen (NEGATIVE) Urine Methadone Screen (NEGATIVE) Acetaminophen (10-30) ug/ml Ur Barbituates Screen (NEGATIVE) Ur Phencyclidine Scrn (NEGATIVE) Ur Amphetamines Screen (NEGATIVE) U Methamphetamines Scrn (NEGATIVE) Urine MDMA Screen (NEGATIVE) U Benzodiazepines Scrn (NEGATIVE) Urine Cocaine Screen (NEGATIVE) U Marijuana (THC) Screen (NEGATIVE) Ethyl Alcohol 299 H (0-3) mg/dL SARS CoV-2 RNA Rapid PAMELA (NEGATIVE) 06/06/21 06/06/21 06/06/21 Range/Units 11:02 11:02 11:45 WBC (4.0-10.0) x10^3/uL RBC (4.00-5.50) x10^6/uL Hgb (12.0-16.0) g/dL Hct (33.0-47.0) % MCV (78.0-93.0) fL MCH (26.0-32.0) pg MCHC (32.0-36.0) g/dL RDW Coeff of Grace (10.0-15.0) % Plt Count (130-400) x10^3/uL Immature Gran % (Auto) (0.00-0.43) % Neut % (Auto) (50.0-80.0) % Lymph % (Auto) (25.0-50.0) % [place] % (Auto) (2.0-11.0) % Eos % (Auto) (0.0-4.0) % Baso % (Auto) (0.2-1.2) % Neut # (Auto) (1.8-7.7) x10^3/uL Lymph # (Auto) (1.0-4.8) x10^3/uL [place] # (Auto) (0.0-0.8) x10^3/uL Eos # (Auto) (0.0-0.5) x10^3/uL Baso # (Auto) (0.0-0.2) x10^3/uL Immature Gran # (Auto) (0.00-0.07) x10^3/uL PT (9.9-12.5) SEC INR (2.0-3.5) APTT (25.6-32.8) SEC Sodium (136-145) mmol/L Potassium (3.5-5.1) mmol/L Chloride (98-107) mmol/L Carbon Dioxide (21-32) mmol/L Anion Gap (5-15) mmol/L BUN (7-18) mg/dL Creatinine (0.55-1.02) mg/dL Est Cr Clr Drug Dosing Estimated GFR (MDRD) Glucose (70-99) mg/dL Calcium (8.5-10.1) mg/dL Corrected Calcium (8.5-10.1) mg/dL Magnesium (1.8-2.4) mg/dL Total Bilirubin (0.2-1.0) mg/dL AST (15-37) U/L ALT (14-59) U/L Alkaline Phosphatase (46-116) U/L Creatine Kinase (26-192) U/L Troponin I High Sens (<=51) ng/L Total Protein (6.4-8.2) g/dL Albumin (3.4-5.0) g/dL Globulin Albumin/Globulin Ratio TSH, Ultra Sensitive 0.973 (0.358-3.74) uIU/mL Urine HCG, Qual (NEGATIVE) Salicylates 3.3 (2.8-20(Therapeutic)) mg/dL Urine Opiates Screen (NEGATIVE) Ur Buprenorphine Scrn (NEGATIVE) Ur Oxycodone Screen (NEGATIVE) Urine Methadone Screen (NEGATIVE) Acetaminophen 0 L (10-30) ug/ml Ur Barbituates Screen (NEGATIVE) Ur Phencyclidine Scrn (NEGATIVE) Ur Amphetamines Screen (NEGATIVE) U Methamphetamines Scrn (NEGATIVE) Urine MDMA Screen (NEGATIVE) U Benzodiazepines Scrn (NEGATIVE) Urine Cocaine Screen (NEGATIVE) U Marijuana (THC) Screen (NEGATIVE) Ethyl Alcohol (0-3) mg/dL SARS CoV-2 RNA Rapid PAMELA Negative (NEGATIVE) 06/06/21 06/06/21 06/06/21 Range/Units 12:55 12:55 19:56 WBC (4.0-10.0) x10^3/uL RBC (4.00-5.50) x10^6/uL Hgb (12.0-16.0) g/dL Hct (33.0-47.0) % MCV (78.0-93.0) fL MCH (26.0-32.0) pg MCHC (32.0-36.0) g/dL RDW Coeff of Grace (10.0-15.0) % Plt Count (130-400) x10^3/uL Immature Gran % (Auto) (0.00-0.43) % Neut % (Auto) (50.0-80.0) % Lymph % (Auto) (25.0-50.0) % [place] % (Auto) (2.0-11.0) % Eos % (Auto) (0.0-4.0) % Baso % (Auto) (0.2-1.2) % Neut # (Auto) (1.8-7.7) x10^3/uL Lymph # (Auto) (1.0-4.8) x10^3/uL [place] # (Auto) (0.0-0.8) x10^3/uL Eos # (Auto) (0.0-0.5) x10^3/uL Baso # (Auto) (0.0-0.2) x10^3/uL Immature Gran # (Auto) (0.00-0.07) x10^3/uL PT (9.9-12.5) SEC INR (2.0-3.5) APTT (25.6-32.8) SEC Sodium (136-145) mmol/L Potassium (3.5-5.1) mmol/L Chloride (98-107) mmol/L Carbon Dioxide (21-32) mmol/L Anion Gap (5-15) mmol/L BUN (7-18) mg/dL Creatinine (0.55-1.02) mg/dL Est Cr Clr Drug Dosing Estimated GFR (MDRD) Glucose (70-99) mg/dL Calcium (8.5-10.1) mg/dL Corrected Calcium (8.5-10.1) mg/dL Magnesium (1.8-2.4) mg/dL Total Bilirubin (0.2-1.0) mg/dL AST (15-37) U/L ALT (14-59) U/L Alkaline Phosphatase (46-116) U/L Creatine Kinase (26-192) U/L Troponin I High Sens (<=51) ng/L Total Protein (6.4-8.2) g/dL Albumin (3.4-5.0) g/dL Globulin Albumin/Globulin Ratio TSH, Ultra Sensitive (0.358-3.74) uIU/mL Urine HCG, Qual Negative (NEGATIVE) Salicylates (2.8-20(Therapeutic)) mg/dL Urine Opiates Screen Negative (NEGATIVE) Ur Buprenorphine Scrn Negative (NEGATIVE) Ur Oxycodone Screen Negative (NEGATIVE) Urine Methadone Screen Negative (NEGATIVE) Acetaminophen (10-30) ug/ml Ur Barbituates Screen Negative (NEGATIVE) Ur Phencyclidine Scrn Negative (NEGATIVE) Ur Amphetamines Screen Negative (NEGATIVE) U Methamphetamines Scrn Negative (NEGATIVE) Urine MDMA Screen Negative (NEGATIVE) U Benzodiazepines Scrn Positive H (NEGATIVE) Urine Cocaine Screen Negative (NEGATIVE) U Marijuana (THC) Screen Negative (NEGATIVE) Ethyl Alcohol 102 H (0-3) mg/dL SARS CoV-2 RNA Rapid PAMELA (NEGATIVE) Med Orders - Current: Current Medications Multivitamins/Minerals 1 tab/Thiamine HCl 100 mg/ Folic Acid 1 mg/ Magnesium Oxide 400 mg 0 tab PO DAILY [facility] Last Admin: 06/07/21 09:03 Dose: 1 each Documented by: Lactated Ringer's (Ringers, Lactated) 1,000 mls @ 150 mls/hr IV ASDIRECTED SOFIYA Last Admin: 06/07/21 04:03 Dose: 150 mls/hr Documented by: Lorazepam (Lorazepam 2 Mg/Ml Sdv) 0 mg IV ASDIRECTED PRN; Protocol PRN Reason: Withdrawal Symptoms Ondansetron HCl (Ondansetron 4 Mg/2 Ml Sdv) 4 mg IV Q6H PRN PRN Reason: Nausea/Vomiting Last Admin: 06/06/21 15:42 Dose: 4 mg Documented by: Sodium Chloride (Sodium Chloride 0.9% 10 Ml Syringe) 10 ml FLUSH ASDIRECTED PRN PRN Reason: Keep Vein Open Discontinued Medications Acetaminophen (Acetaminophen 500 Mg Tab) 1,000 mg PO ONETIME ONE Stop: 06/07/21 05:57 Last Admin: 06/07/21 06:07 Dose: 1,000 mg Documented by: Flumazenil (Flumazenil 0.1 Mg/Ml 5 Ml Mdv) 0.2 mg IVPUSH ONETIME ONE Stop: 06/06/21 10:51 Last Admin: 06/06/21 10:43 Dose: 0.2 mg Documented by: Flumazenil (Flumazenil 0.1 Mg/Ml 5 Ml Mdv) Confirm Administered Dose 0.5 mg .ROUTE .STK-MED ONE Stop: 06/06/21 11:01 Last Admin: 06/06/21 13:12 Dose: Not Given Documented by: Flumazenil (Flumazenil 0.1 Mg/Ml 5 Ml Mdv) 0.2 mg IVPUSH ONETIME ONE Stop: 06/06/21 11:30 Last Admin: 06/06/21 10:56 Dose: 0.2 mg Documented by: Sodium Chloride (Normal Saline) 1,000 mls @ 999 mls/hr IV ONETIME ONE Stop: 06/06/21 11:50 Last Admin: 06/06/21 11:04 Dose: 999 mls/hr Documented by: - Exam General: Reports: Alert, Oriented HEENT: Reports: Pupils Equal Neck: Reports: Supple Lungs: Reports: Clear to Auscultation, Normal Respiratory Effort Cardiovascular: Reports: Regular Rate, Regular Rhythm GI/Abdominal Exam: Normal Bowel Sounds, Soft, Non-Tender (Female) Exam: Deferred Rectal (Female) Exam: Deferred Back Exam: Reports: Normal Inspection, Full Range of Motion Extremities: Normal Inspection, Normal Range of Motion, Non-Tender, No Pedal Edema, Normal Capillary Refill Skin: Reports: Warm, Dry, Intact Neurological: Reports: No New Focal Deficit Psy/Mental Status: Reports: Alert, Normal Affect, Normal Mood
== END 2021-06-07 10:40 | disposition home or self-care (01) ==
LOC: VM.ED 10:38 → VM.MS 13:06
PROVIDERS: ADMIT Nurse Practitioner Family; ATTEND Nurse Practitioner Family
DX: F10.129 Alcohol abuse with intoxication, unspecified (principal); T42.4X1A Poisoning by benzodiazepines, accidental (unintentional), initial encounter; J44.9 Chronic obstructive pulmonary disease, unspecified; K21.9 Gastro-esophageal reflux disease without esophagitis; F17.210 Nicotine dependence, cigarettes, uncomplicated; F41.9 Anxiety disorder, unspecified; F32.A Depression, unspecified; Z20.822 Contact with and (suspected) exposure to COVID-19; Z90.49 Acquired absence of other specified parts of digestive tract; Z88.8 Allergy status to other drugs, medicaments and biological substances; Z79.899 Other long term (current) drug therapy
CPT/HCPCS: 36415; 70450; 71045; 80053; 80143; 80179; 80305-QW; 80307; 81025; 82550; 83735; 84443; 84484; 85025; 85610; 85730; 93005; 94760; 99284; A9270-GY; J2405; J3490; J7030; J7120; U0002

== ENCOUNTER 2021-08-12 21:24 | Observation (INO) | payer BC, MEDICAID ==
[2021-08-12] MEDS ORDERED: Sodium Chloride 0.9% 10 ML Syringe FLUSH PRN (21:51)
[2021-08-12] MEDS ORDERED: Ondansetron 4 MG/2 ML SDV IVPUSH ONE (21:54)
[2021-08-12] MEDS ORDERED: Sodium Chloride 0.9% 1,000 ML IV SCH (22:00)
[2021-08-12 22:46] LABS: CHLORIDE,CL 105 mmol/L (98-107); SODIUM,NA 144 mmol/L (136-145)
[2021-08-12 22:47] LABS: ANION GAP 13.4 mmol/L (5-15)
[2021-08-12 22:48] LABS: CORONAVIRUS COVID-19 NAA NEGATIVE (NEGATIVE); RESPIRATORY SYNCYTIAL VIR NAA NEGATIVE (NEGATIVE)
[2021-08-12] MEDS ORDERED: cloNIDine 0.1 MG Tab PO PRN (23:14)
[2021-08-12] MEDS ORDERED: Ondansetron 4 MG/2 ML SDV IVPUSH PRN (23:14)
[2021-08-12] MEDS ORDERED: Magnesium Oxide 400 MG Tab PO ONE (23:14)
[2021-08-12] MEDS ORDERED: LORazepam 1 MG Tab PO PRN (23:14)
[2021-08-12] MEDS ORDERED: Metoprolol Tartrate 25 MG Tab PO PRN (23:14)
[2021-08-13] MEDS: Thiamine 100 MG Tab PO SCH ×2 (00:04→09:02)
[2021-08-13] MEDS: Folic Acid 1 MG Tab PO SCH ×2 (00:04→09:02)
[2021-08-13] MEDS: Multivitamins with Iron/Calcium/Folic Acid/Minerals Tab PO SCH ×2 (00:04→09:02)
[2021-08-13] MEDS: Pantoprazole 40 MG Vial IV SCH ×2 (00:05→09:02)
[2021-08-13] MEDS: NS + KCl 20mEq/L 1,000 ML IV SCH ×2 (00:11→06:48)
[2021-08-13 05:05] VITALS: BP 159/74; PULSE 99
[2021-08-13 07:01] LABS: BARBITURATE SCREEN,URINE NEGATIVE (NEGATIVE)
[2021-08-13 07:02] LABS: BENZODIAZEPINES SCREEN,URINE POSITIVE (NEGATIVE); BUPRENORPHINE SCREEN,URINE NEGATIVE (NEGATIVE); METHAMPHETAMINE SCREEN, URINE NEGATIVE (NEGATIVE); THC SCREEN,URINE 50 NG/ML NEGATIVE (NEGATIVE)
[2021-08-13] MEDS ORDERED: LORazepam 0.5 MG Tab PO ONE (08:30)
== END 2021-08-13 10:00 | disposition home or self-care (01) ==
LOC: VM.ED 21:24 → VM.MS 21:53
PROVIDERS: ADMIT Physician Assistant; ATTEND Physician Assistant
DX: F10.129 Alcohol abuse with intoxication, unspecified (principal); Z79.899 Other long term (current) drug therapy; Z20.822 Contact with and (suspected) exposure to COVID-19
CPT/HCPCS: 0241U; 80053; 80305-QW; 80307; 81001; 81025; 83690; 83735; 84100; 84443; 85025; 85610; 85730; 86140; 94760; 96374; 96375; 96376; 99217; 99220; 99285-25; A9270-GY; C9113; G0378; J2405; J3480; J7030

== ENCOUNTER 2022-05-01 12:14 | Observation (INO) | payer BC ==
[2022-05-01] MEDS ORDERED: Sodium Chloride 0.9% 1,000 ML IV ONE (12:34)
[2022-05-01 12:57] LABS: CHLORIDE,CL 96 mmol/L (98-107); SODIUM,NA 135 mmol/L (136-145)
[2022-05-01 12:59] LABS: ANION GAP 29.1 mmol/L (5-15); ESTIMATED GFR 53 mL/min (>=60)
[2022-05-01 13:17] LABS: BARBITURATE SCREEN,URINE NEGATIVE (NEGATIVE); BENZODIAZEPINES SCREEN,URINE NEGATIVE (NEGATIVE); BUPRENORPHINE SCREEN,URINE NEGATIVE (NEGATIVE); METHAMPHETAMINE SCREEN, URINE NEGATIVE (NEGATIVE)
[2022-05-01 13:18] LABS: THC SCREEN,URINE 50 NG/ML NEGATIVE (NEGATIVE)
[2022-05-01] MEDS ORDERED: LORazepam 1 MG Tab PO ONE (13:33)
[2022-05-01] MEDS ORDERED: Ondansetron 4 MG/2 ML SDV IV PRN (14:34)
[2022-05-01] MEDS ORDERED: Sodium Chloride 0.9% 10 ML Syringe FLUSH PRN (14:34)
[2022-05-01] MEDS ORDERED: Ondansetron 4 MG Tab.DIS PO PRN (14:34)
[2022-05-01] MEDS ORDERED: LORazepam 2 MG/ML SDV IVPUSH PRN (14:34)
[2022-05-01] MEDS ORDERED: Acetaminophen 325 MG Tab PO PRN (14:34)
[2022-05-01] MEDS ORDERED: Flumazenil 0.1 MG/ML 5 ML MDV IVPUSH PRN (14:34)
[2022-05-01] MEDS ORDERED: NS + KCl 20mEq/L 1,000 ML IV SCH (14:45)
[2022-05-01] MEDS: LORazepam 1 MG Tab PO PRN ×2 (18:44→23:16)
[2022-05-02 06:52] LABS: ANION GAP 13.1 mmol/L (5-15)
[2022-05-02] MEDS ORDERED: Ferrous Sulfate 325 MG Tab PO SCH (09:00)
[2022-05-02] MEDS ORDERED: Potassium Chloride 10 MEQ Tab.ER PO SCH (09:00)
[2022-05-02] MEDS ORDERED: Sulfamethoxazole/Trimethoprim 800-160 MG Tab PO SCH (09:00)
[2022-05-02] MEDS: LORazepam 1 MG Tab PO PRN (10:05)
[2022-05-02 14:00] VITALS: BP 131/79; PULSE 107
== END 2022-05-02 11:55 | disposition home or self-care (01) ==
LOC: VM.ED 12:14 → VM.MS 13:22
PROVIDERS: ADMIT Physician Assistant Medical; ATTEND Physician Assistant Medical
DX: F10.10 Alcohol abuse, uncomplicated (principal); D50.8 Other iron deficiency anemias; R56.9 Unspecified convulsions; F41.9 Anxiety disorder, unspecified; F32.A Depression, unspecified; K21.9 Gastro-esophageal reflux disease without esophagitis; J44.9 Chronic obstructive pulmonary disease, unspecified; R73.9 Hyperglycemia, unspecified; F17.200 Nicotine dependence, unspecified, uncomplicated; Z79.899 Other long term (current) drug therapy; Z90.49 Acquired absence of other specified parts of digestive tract; Z88.2 Allergy status to sulfonamides; Z88.8 Allergy status to other drugs, medicaments and biological substances
CPT/HCPCS: 36415; 36430; 70450; 80048; 80053; 80305-QW; 80307; 81001; 82274; 82550; 82607; 82728; 82746; 83540; 83550; 83735; 85014; 85018; 85025; 86140; 86850; 86900; 86901; 86920; 86922; 87086; 87088; 87186; 96360; 99285-25; A9270-GY; G0378; J3480; J7030; P9016

== ENCOUNTER 2022-05-25 10:45 | Emergency (ER) | payer BC ==
[2022-05-25] MEDS ORDERED: LORazepam 1 MG Tab PO ONE (11:02)
[2022-05-25 11:05] VITALS: BP 137/94; PULSE 119
[2022-05-25 11:38] LABS: PTT,PARTIAL THROMBOPLSTIN TIME 23.9 SEC (20.5-30.9)
[2022-05-25 11:41] LABS: CHLORIDE,CL 97 mmol/L (98-107); SODIUM,NA 140 mmol/L (136-145)
[2022-05-25] MEDS ORDERED: Ondansetron 4 MG Tab.DIS PO ONE (11:44)
[2022-05-25 11:45] LABS: ANION GAP 19.9 mmol/L (5-15); ESTIMATED GFR 101 mL/min (>=60)
[2022-05-25 11:53] LABS: ACETAMINOPHEN 0 ug/ml (10-30)
[2022-05-25] MEDS ORDERED: Citalopram 20 MG Tab PO ONE (13:07)
[2022-05-25 13:09] LABS: BARBITURATE SCREEN,URINE NEGATIVE (NEGATIVE)
[2022-05-25 13:10] LABS: BENZODIAZEPINES SCREEN,URINE NEGATIVE (NEGATIVE); BUPRENORPHINE SCREEN,URINE NEGATIVE (NEGATIVE); METHAMPHETAMINE SCREEN, URINE POSITIVE (NEGATIVE); THC SCREEN,URINE 50 NG/ML NEGATIVE (NEGATIVE)
[2022-05-25] MEDS ORDERED: Take Home: LORazepam 0.5 MG Tab, 2 Tab Pack PO ONE (13:16)
[2022-05-25] MEDS ORDERED: Take Home: Ondansetron 4 MG Tab.DIS, 5 Tab Pack PO ONE (13:24)
== END 2022-05-25 14:30 | disposition home or self-care (01) ==
LOC: VM.ED 10:45
DX: T55.0X2A Toxic effect of soaps, intentional self-harm, initial encounter (principal); J44.9 Chronic obstructive pulmonary disease, unspecified; K21.9 Gastro-esophageal reflux disease without esophagitis; Z88.8 Allergy status to other drugs, medicaments and biological substances; Z79.899 Other long term (current) drug therapy; Z86.16 Personal history of COVID-19
CPT/HCPCS: 36415; 80053; 80143; 80179; 80305-QW; 80307; 81001; 83735; 85025; 85610; 85730; 87086; 87088; 87186; 99284; 99285; A9270-GY; Q0162

== ENCOUNTER 2022-09-23 17:30 | Emergency (ER) | payer BC, MEDICAID ==
[2022-09-23 18:01] VITALS: BP 126/74; PULSE 104
== END 2022-09-23 19:37 | disposition home or self-care (01) ==
LOC: VM.ED 17:30
DX: S01.81XA Laceration without foreign body of other part of head, initial encounter (principal); J44.9 Chronic obstructive pulmonary disease, unspecified; Z88.8 Allergy status to other drugs, medicaments and biological substances; Z79.899 Other long term (current) drug therapy; Z86.16 Personal history of COVID-19; Z90.49 Acquired absence of other specified parts of digestive tract; W01.10XA Fall on same level from slipping, tripping and stumbling with subsequent striking against unspecified object, initial encounter
CPT/HCPCS: 70450; 99283

== ENCOUNTER 2022-12-04 11:34 | Day surgery (SDC) | payer MEDICAID | END 2022-12-04 15:15 | disposition home or self-care (01) | LOC: VM.SDS 11:34 | DX: Z12.11 Encounter for screening for malignant neoplasm of colon (principal); D50.8 Other iron deficiency anemias; K57.30 Diverticulosis of large intestine without perforation or abscess without bleeding; K21.9 Gastro-esophageal reflux disease without esophagitis; F41.0 Panic disorder [episodic paroxysmal anxiety]; E87.6 Hypokalemia; F10.11 Alcohol abuse, in remission; F33.2 Major depressive disorder, recurrent severe without psychotic features; J44.9 Chronic obstructive pulmonary disease, unspecified; Z83.71 Family history of colonic polyps; Z79.899 Other long term (current) drug therapy; Z88.8 Allergy status to other drugs, medicaments and biological substances | CPT/HCPCS: 00812; J2704; J3010; J7120 ==

== ENCOUNTER 2024-09-18 07:42 | Emergency (ER) | payer MEDICAID ==
[2024-09-18] MEDS: EPINEPHrine 1:10,000 1 MG/10 ML Syringe ONE (07:50)
[2024-09-18] MEDS: Sodium Bicarbonate 8.4% 50 MEQ/50 ML Syringe ONE (07:58)
[2024-09-18 08:02] LABS: HEMATOCRIT 41.9 % (33.0-47.0); HEMOGLOBIN 12.7 g/dL (12.0-16.0); MEAN CORPUSCULAR HEMOGLOBIN 27.9 pg (26.0-32.0); MEAN CORPUSCULAR HGB CONC 30.3 g/dL (32.0-36.0); MEAN CORPUSCULAR VOLUME 92.1 fL (78.0-93.0); PLATELET COUNT,PLT 199 x10^3/uL (130-400); RED BLOOD CELL COUNT 4.55 x10^6/uL (4.00-5.50)
[2024-09-18 08:03] LABS: WHITE BLOOD CELL COUNT,WBC 27.1 x10^3/uL (4.0-10.0)
[2024-09-18 08:08] LABS: BAND PERCENT MAN 2 % (0-6); LYMPHOCYTES % ATYPICAL MANUAL 3 % (0); LYMPHOCYTES PERCENT MAN 8 % (25-50); METAMYELOCYTE PERCENT MAN 7 % (0); MONOCYTES ABSOLUTE MAN 4.9 x10^3/uL (0.0-0.8); MONOCYTES PERCENT MAN 18 % (2-11); MYELOCYTE PERCENT MAN 2 % (0); NEUTROPHILS ABSOLUTE MAN 16.8 x10^3/uL (1.8-7.7); SEG NEUTROPHILS PERCENT MAN 60 % (50-80)
[2024-09-18 08:09] LABS: HYPOCHROMASIA 1+ SLIGHT; PLATELET COUNT ESTIMATE ADEQUATE
[2024-09-18 08:20] LABS: BLOOD UREA NITROGEN,BUN 37 mg/dL (7-18); CARBON DIOXIDE,CO2 17 mmol/L (21-32); CHLORIDE,CL 101 mmol/L (98-107); CREATININE 2.6 mg/dL (0.55-1.02); GLUCOSE RANDOM 143 mg/dL (70-99); POTASSIUM,K 4.5 mmol/L (3.5-5.1); SODIUM,NA 140 mmol/L (136-145)
[2024-09-18 08:29] LABS: ANION GAP 26.5 mmol/L (5-15); ESTIMATED GFR 21 mL/min (>=60)
== END 2024-09-18 08:06 | disposition expired ==
LOC: VM.ED 07:42
DX: I46.9 Cardiac arrest, cause unspecified (principal); K21.9 Gastro-esophageal reflux disease without esophagitis; J44.9 Chronic obstructive pulmonary disease, unspecified; Z86.16 Personal history of COVID-19; Z90.49 Acquired absence of other specified parts of digestive tract; Z88.8 Allergy status to other drugs, medicaments and biological substances; Z79.51 Long term (current) use of inhaled steroids; Z79.899 Other long term (current) drug therapy
CPT/HCPCS: 31500; 36415; 80048; 84484; 85025; 92950; 96374; 99285; 99291-25; 99292; J0171; J3490